=== PATIENT | male | born 1955 | race Caucasian/White ===

== ENCOUNTER 2022-09-17 11:53 | Emergency (ER) | payer MEDICARE, OTHER, SELFPAY ==
[2022-09-17] VITALS (34 sets, daily range): BP systolic 116–175; BP diastolic 65–86; PULSE 53–71; RESP 11–28; TEMP 36.7; O2SAT 94–99; BMI 27.6
--- NOTE | 2022-09-17 12:10 | DI.RAD.S_ITS ---
PROCEDURE: XR CHEST 1V INDICATIONS: chest pain TECHNIQUE: One view of the chest was acquired. COMPARISON: [facility], , CHEST 2 VIEW, 03/10/2012, 8:20. FINDINGS: Surgical changes and devices: None. Lungs and pleura: Lungs are clear. No pleural effusions or pneumothorax. Mediastinum: Mediastinal contours appear normal. Heart size is normal. Bones and chest wall: No suspicious bony lesions. Overlying soft tissues appear unremarkable. IMPRESSION: No acute pulmonary process. Dictated by: Kasey Evans M.D. on 09/17/2022 at 12:43 Approved by: Kasey Evans M.D. on 09/17/2022 at 12:44
[2022-09-17 12:56] LABS: Add Manual Diff / Slide Review NO; Basophils Absolute Auto 0 /uL (0-100); Basophils Percent Auto 0.5 % (0-2); Eosinophils Absolute Auto 100 /uL (0-450); Eosinophils Percent Auto 1.7 % (2-4); Lymphocytes Absolute Auto 1000 /uL (1100-4500); Lymphocytes Percent Auto 18.3 % (25-40); Mean Corpuscular HGB Conc 34.4 % (30-36); Mean Corpuscular Hemoglobin 31.8 PG (26-34); Mean Corpuscular Volume 92.3 fL (80-100); Monocytes Absolute Auto 500 /uL (0-900); Monocytes Percent Auto 9.5 % (3-14); Neutrophils Absolute Auto 3700 /uL (1500-7000); Platelet Count 185 X10^3/uL (150-400); Red Blood Cell Count 3.79 X10^6/uL (4.5-5.9); Red Cell Distribution Width 13.4 % (11.6-14.8); White Blood Cell Count 5.2 X10^3/uL (4.5-11.0)
[2022-09-17 13:05] LABS: PTT Partial Thromboplastin Tim 30 SECONDS (26-36)
[2022-09-17] MEDS: ASPIRIN 81 MG CHEW TAB 324 MG PO (13:10)
[2022-09-17 13:13] LABS: Alanine Aminotransferase 23 IU/L (<50); Albumin 3.6 g/dL (3.5-5.0); Alkaline Phosphatase 113 U/L (38-126); Aspartate Aminotransferase 23 IU/L (17-59); Bilirubin Total 0.9 mg/dL (0.2-1.3); Blood Urea Nitrogen 13 mg/dL (9-20); Calcium 8.3 mg/dL (8.4-10.2); Carbon Dioxide 25 mmol/L (22-32); Chloride 105 mmol/L (98-107); Creatine Kinase 26 U/L (55-170); Estimated Glomerular Filt Rate > 60 mL/min (>60); Globulin 2.5 g/dL (1.7-4.1); Glucose 111 mg/dL (80-110); HEMOLYSIS < 15 (0-50); Magnesium 1.9 mg/dL (1.6-2.3); Potassium 3.8 mmol/L (3.4-5.1); Sodium 138 mmol/L (137-145); Total Protein 6.1 g/dL (6.3-8.2)
[2022-09-17 13:14] LABS: Albumin Globulin Ratio 1.4 (1.0-2.8); Lipase 86 U/L (23-300)
[2022-09-17] MEDS: NITROGLYCERIN 0.4 MG SL TAB SL (13:16)
[2022-09-17 13:25] LABS: Troponin I < 0.012 ng/mL (0.01-0.034)
--- NOTE | 2022-09-17 13:31 | ED_ITS ---
HPI - Chest Pain <Shaji Gregg MD - Last Filed: 09/23/22 09:59> General Chief Complaint: Chest Pain Stated Complaint: states angina increase in freq/Intensity Time Seen by Provider: 09/17/22 12:39 Source: patient and family Mode of arrival: Ambulatory Limitations: no limitations History of Present Illness HPI narrative: Patient here for non reproducible sternal chest pressure discomfort that is been off and on since his right coronary artery stent August 17, 2022 at [facility]. Last couple days has felt very tired and short of breath. Patient did get relief with nitroglycerin at home. brought patient here. Patient had heart catheterization through the right upper extremity in August and had stent on the right coronary artery. There were a couple other vessels that were not amenable to opening the vessel. However he did come back for a secondary heart catheterization through the right groin and still a successful. He states he is due next week to try another method of heart catheterization with his senior trial attorney. Currently chest pain 11/26. Related Data Home Medications Medication Instructions Recorded Confirmed aspirin 81 mg tablet 81 mg PO DAILY 09/17/22 09/17/22 atorvastatin 40 mg tablet 40 mg PO DAILY 09/17/22 09/17/22 calcium citrate 250 mg PO QID 09/17/22 09/17/22 clopidogrel 75 mg tablet 75 mg PO DAILY 09/17/22 09/17/22 ferrous fumarate-ascorbic 1 tab PO DAILY 09/17/22 09/17/22 acid-ascorbate sod 65 mg iron-125 mg tablet meloxicam 15 mg tablet 15 mg PO DAILY PRN Pain (Scale 09/17/22 09/17/22 Score 4-6) metoprolol succinate 25 mg 25 mg PO DAILY 09/17/22 09/17/22 tablet,extended release 24 hr multivitamin-ferrous sulfate 18 mg 1 tab PO DAILY 09/17/22 09/17/22 tablet (One Daily Multivitamin with Iron) pantoprazole 40 mg tablet,delayed 40 mg PO DAILY 09/17/22 09/17/22 release vit C 250 mg-vit E 90 mg-zinc 40 1 cap PO DAILY 09/17/22 09/17/22 mg-copper 1 [id number] capsule (PreserVision AREDS-2) zolpidem 10 mg tablet 10 mg PO BEDTIME PRN Insomnia 09/17/22 09/17/22 Allergies Allergy/AdvReac Type Severity Reaction Status Date / Time No Known Drug Allergies Allergy Verified 09/17/22 12:21 Review of Systems <Shaji Gregg MD - Last Filed: 09/23/22 09:59> Review of Systems Narrative: GENERAL: negative chills, fatigue, malaise, fever, sweats. HEENT: negative sinus pain, ear pain, sore throat RESPIRATORY: Positive dyspnea, negative cough CARDIOVASCULAR: Positive chest pain, palpitations GASTROINTESTINAL: negative nausea, vomiting, abdominal pain : negative dysuria, frequency, hematuria MUSCULOSKELETAL: negative muscle or bony pain SKIN: negative rash, skin lesions NEUROLOGIC: negative weakness, numbness ROS Unobtainable: All systems reviewed & are unremarkable except as noted in HPI and below Patient History <Shaji Gregg MD - Last Filed: 09/23/22 09:59> Social History Smoking Status: Never smoker Smoking Status: Never smoker alcohol intake frequency: 0-2 drinks per day Substance Use Type: does not use Exam <Shaij Gregg MD - Last Filed: 09/23/22 09:59> Narrative Exam Narrative: GENERAL: in no distress, not toxic not dyspneic HEAD: Normocephalic. EYES: Pupils equal round No scleral icterus. ENT: Mucous membranes moist. NECK: Trachea midline. CARDIOVASCULAR: Regular rate and rhythm without murmurs RESPIRATORY: Clear to auscultation. Breath sounds equal bilaterally. No wheezes, rales, or rhonchi. GASTROINTESTINAL: Abdomen soft, non-tender EXTREMITIES: No gross deformities. BACK: No flank tenderness. NEURO: AOx4. SKIN: Warm and dry PSYCH: Not anxious, is cooperative Initial Vital Signs Initial Vital Signs: Vital Signs Temperature 98.1 F 09/17/22 12:05 Pulse Rate 58 L 09/17/22 12:05 Respiratory Rate 18 09/17/22 12:05 Blood Pressure 175/79 H 09/17/22 12:05 Pulse Oximetry 99 09/17/22 12:05 Oxygen Delivery Method 09/17/22 12:05 <Thania Almendarez DO - Last Filed: 09/20/22 07:40> Initial Vital Signs Initial Vital Signs: Vital Signs Temperature 98.1 F 09/17/22 12:05 Pulse Rate 58 L 09/17/22 12:05 Respiratory Rate 18 09/17/22 12:05 Blood Pressure 175/79 H 09/17/22 12:05 Pulse Oximetry 99 09/17/22 12:05 Oxygen Delivery Method 09/17/22 12:05 <Angie Sam DO - Last Filed: 09/20/22 11:27> Initial Vital Signs Initial Vital Signs: Vital Signs Temperature 98.1 F 09/17/22 12:05 Pulse Rate 58 L 09/17/22 12:05 Respiratory Rate 18 09/17/22 12:05 Blood Pressure 175/79 H 09/17/22 12:05 Pulse Oximetry 99 09/17/22 12:05 Oxygen Delivery Method 09/17/22 12:05 Course <Shaji Gregg MD - Last Filed: 09/23/22 09:59> Course Course Narrative: 6:[address] Almendarez repeat troponins are pending. Patient is on waiting list for [facility] for a bed, has been accepted by hospitalist and Cardiology group. Home meds may need to be started tonight. Decision to Admit Date: 09/17/22 Decision to Admit time: 13:33 Orders Ordered: Discontinued Medications Acetaminophen (Acetaminophen 325 Mg Tablet) 975 mg PO NOW ONE Stop: 09/17/22 20:42 Last Admin: 09/17/22 20:49 Dose: 975 mg Documented By: TONY Acetaminophen (Acetaminophen 325 Mg Tablet) 650 mg PO Q6H PRN PRN Reason: Fever/Mild Pain (1-3) Last Admin: 09/18/22 18:31 Dose: 650 mg Documented By: Admin: 09/18/22 06:09 Dose: 650 mg Documented By: TONY Aspirin (Aspirin 81 Mg Chew Tab) 324 mg PO NOW ONE Stop: 09/17/22 12:10 Last Admin: 09/17/22 13:10 Dose: 243 mg Documented By: ANISH Aspirin (Aspirin Ec 81 Mg Tablet) 81 mg PO DAILY [facility] Last Admin: 09/19/22 10:16 Dose: 81 mg Documented By: Admin: 09/18/22 09:39 Dose: 81 mg Documented By: ANISH Atorvastatin Calcium (Atorvastatin 20 Mg Tablet) 40 mg PO DAILY [facility] Last Admin: 09/19/22 10:15 Dose: 40 mg Documented By: Admin: 09/18/22 09:40 Dose: 40 mg Documented By: RLS Bisacodyl (Bisacodyl 10 Mg Supp) 10 mg OK NOW ONE Stop: 09/18/22 11:33 Last Admin: 09/18/22 12:04 Dose: 10 mg Documented By: AT Clopidogrel Bisulfate (Clopidogrel 75 Mg Tablet) 75 mg PO DAILY [facility] Last Admin: 09/19/22 10:15 Dose: 75 mg Documented By: Admin: 09/18/22 09:41 Dose: 75 mg Documented By: RLS Nitroglycerin (Nitroglycerin) 50 mg in 250 mls @ 1.5 mls/hr IV TITRATE [facility]; Protocol Last Titration: 09/18/22 18:33 Dose: 12.5 mcg/min, 3.75 mls/hr Documented By: Titration: 09/18/22 10:33 Dose: 10 mcg/min, 3 mls/hr Documented By: Titration: 09/18/22 09:32 Dose: 7.5 mcg/min, 2.25 mls/hr Documented By: Admin: 09/17/22 20:06 Dose: 5 mcg/min, 1.5 mls/hr Documented By: GC Metoprolol Succinate (Metoprolol Er 25 Mg Tablet) 25 mg PO DAILY [facility] Last Admin: 09/19/22 10:16 Dose: 25 mg Documented By: Admin: 09/18/22 09:40 Dose: 25 mg Documented By: RLS Morphine Sulfate (Morphine 2 Mg/Ml Inj) 2 mg IV NOW ONE Stop: 09/17/22 20:42 Last Admin: 09/18/22 09:32 Dose: Not Given Documented By: RLS Nitroglycerin (Nitroglycerin 0.4 Mg Sl Tab) 0.4 mg SL [id number] PRN PRN Reason: Chest Pain Last Admin: 09/17/22 13:16 Dose: 0.4 mg Documented By: RLS Nitroglycerin (Nitroglycerin Oint 1 Inch/Gm Oint...G.) 1 inch TOP NOW ONE Stop: 09/17/22 13:36 Last Admin: 09/17/22 13:39 Dose: 1 inch Documented By: RLS Pantoprazole Sodium (Pantoprazole Dr 20 Mg Tablet) 40 mg PO DAILY [facility] Last Admin: 09/19/22 10:15 Dose: 40 mg Documented By: Admin: 09/18/22 09:41 Dose: 40 mg Documented By: ANISH Zolpidem Tartrate (Zolpidem 5 Mg Tablet) 10 mg PO BEDTIME PRN PRN Reason: Sleep Last Admin: 09/20/22 02:33 Dose: 10 mg Documented By: Admin: 09/19/22 00:36 Dose: 10 mg Documented By: Admin: 09/17/22 23:57 Dose: 10 mg Documented By: TONY Reevaluation(s) Reevaluation #1: Updated patient results. Repeat EKG no acute changes. Time: 15:08 Consultations Consultation #1: Spoke with patient's senior trial attorney dr martínez, would like patient to be transfer to [facility]. Time: 14:03 Consultation #2: Spoke with [facility] Cardiology on-call, Dr. Connell, will accept pt when bed available, [facility] Time: 15:08 Consultation #3: Spoke with [facility] Dr. Steele hospitalist, will accept patient when bed available. Time: 15:22 Vital Signs Vital signs: Vital Signs - 8 hr 09/20/22 06:05 09/20/22 06:30 09/20/22 06:30 Pulse Rate 59 L 59 L Respiratory Rate 25 H 29 H Blood Pressure 108/57 L Pulse Oximetry 95 95 <Thania Almendarez, - Last Filed: 09/20/22 07:40> Orders Ordered: Discontinued Medications Acetaminophen (Acetaminophen 325 Mg Tablet) 975 mg PO NOW ONE Stop: 09/17/22 20:42 Last Admin: 09/17/22 20:49 Dose: 975 mg Documented By: TONY Acetaminophen (Acetaminophen 325 Mg Tablet) 650 mg PO Q6H PRN PRN Reason: Fever/Mild Pain (1-3) Last Admin: 09/18/22 18:31 Dose: 650 mg Documented By: Admin: 09/18/22 06:09 Dose: 650 mg Documented By: TONY Aspirin (Aspirin 81 Mg Chew Tab) 324 mg PO NOW ONE Stop: 09/17/22 12:10 Last Admin: 09/17/22 13:10 Dose: 243 mg Documented By: ANISH Aspirin (Aspirin Ec 81 Mg Tablet) 81 mg PO DAILY [facility] Last Admin: 09/19/22 10:16 Dose: 81 mg Documented By: Admin: 09/18/22 09:39 Dose: 81 mg Documented By: RLS Atorvastatin Calcium (Atorvastatin 20 Mg Tablet) 40 mg PO DAILY [facility] Last Admin: 09/19/22 10:15 Dose: 40 mg Documented By: Admin: 09/18/22 09:40 Dose: 40 mg Documented By: RLS Bisacodyl (Bisacodyl 10 Mg Supp) 10 mg OK NOW ONE Stop: 09/18/22 11:33 Last Admin: 09/18/22 12:04 Dose: 10 mg Documented By: AT Clopidogrel Bisulfate (Clopidogrel 75 Mg Tablet) 75 mg PO DAILY [facility] Last Admin: 09/19/22 10:15 Dose: 75 mg Documented By: Admin: 09/18/22 09:41 Dose: 75 mg Documented By: RLS Nitroglycerin (Nitroglycerin) 50 mg in 250 mls @ 1.5 mls/hr IV TITRATE [facility]; Protocol Last Titration: 09/18/22 18:33 Dose: 12.5 mcg/min, 3.75 mls/hr Documented By: Titration: 09/18/22 10:33 Dose: 10 mcg/min, 3 mls/hr Documented By: Titration: 09/18/22 09:32 Dose: 7.5 mcg/min, 2.25 mls/hr Documented By: Admin: 09/17/22 20:06 Dose: 5 mcg/min, 1.5 mls/hr Documented By: GC Metoprolol Succinate (Metoprolol Er 25 Mg Tablet) 25 mg PO DAILY [facility] Last Admin: 09/19/22 10:16 Dose: 25 mg Documented By: Admin: 09/18/22 09:40 Dose: 25 mg Documented By: RLS Morphine Sulfate (Morphine 2 Mg/Ml Inj) 2 mg IV NOW ONE Stop: 09/17/22 20:42 Last Admin: 09/18/22 09:32 Dose: Not Given Documented By: RLS Nitroglycerin (Nitroglycerin 0.4 Mg Sl Tab) 0.4 mg SL [id number] PRN PRN Reason: Chest Pain Last Admin: 09/17/22 13:16 Dose: 0.4 mg Documented By: RLS Nitroglycerin (Nitroglycerin Oint 1 Inch/Gm Oint...G.) 1 inch TOP NOW ONE Stop: 09/17/22 13:36 Last Admin: 09/17/22 13:39 Dose: 1 inch Documented By: ANISH Pantoprazole Sodium (Pantoprazole Dr 20 Mg Tablet) 40 mg PO DAILY [facility] Last Admin: 09/19/22 10:15 Dose: 40 mg Documented By: Admin: 09/18/22 09:41 Dose: 40 mg Documented By: ANISH Zolpidem Tartrate (Zolpidem 5 Mg Tablet) 10 mg PO BEDTIME PRN PRN Reason: Sleep Last Admin: 09/20/22 02:33 Dose: 10 mg Documented By: Admin: 09/19/22 00:36 Dose: 10 mg Documented By: Admin: 09/17/22 23:57 Dose: 10 mg Documented By: TONY Vital Signs Vital signs: Vital Signs - 8 hr 09/20/22 06:05 09/20/22 06:30 09/20/22 06:30 Pulse Rate 59 L 59 L Respiratory Rate 25 H 29 H Blood Pressure 108/57 L Pulse Oximetry 95 95 <Angie Sam, - Last Filed: 09/20/22 11:27> Orders Ordered: Discontinued Medications Acetaminophen (Acetaminophen 325 Mg Tablet) 975 mg PO NOW ONE Stop: 09/17/22 20:42 Last Admin: 09/17/22 20:49 Dose: 975 mg Documented By: TONY Acetaminophen (Acetaminophen 325 Mg Tablet) 650 mg PO Q6H PRN PRN Reason: Fever/Mild Pain (1-3) Last Admin: 09/18/22 18:31 Dose: 650 mg Documented By: Admin: 09/18/22 06:09 Dose: 650 mg Documented By: TONY Aspirin (Aspirin 81 Mg Chew Tab) 324 mg PO NOW ONE Stop: 09/17/22 12:10 Last Admin: 09/17/22 13:10 Dose: 243 mg Documented By: ANISH Aspirin (Aspirin Ec 81 Mg Tablet) 81 mg PO DAILY [facility] Last Admin: 09/19/22 10:16 Dose: 81 mg Documented By: Admin: 09/18/22 09:39 Dose: 81 mg Documented By: ANISH Atorvastatin Calcium (Atorvastatin 20 Mg Tablet) 40 mg PO DAILY [facility] Last Admin: 09/19/22 10:15 Dose: 40 mg Documented By: Admin: 09/18/22 09:40 Dose: 40 mg Documented By: ANISH Bisacodyl (Bisacodyl 10 Mg Supp) 10 mg OK NOW ONE Stop: 09/18/22 11:33 Last Admin: 09/18/22 12:04 Dose: 10 mg Documented By: AT Clopidogrel Bisulfate (Clopidogrel 75 Mg Tablet) 75 mg PO DAILY [facility] Last Admin: 09/19/22 10:15 Dose: 75 mg Documented By: Admin: 09/18/22 09:41 Dose: 75 mg Documented By: RLS Nitroglycerin (Nitroglycerin) 50 mg in 250 mls @ 1.5 mls/hr IV TITRATE [facility]; Protocol Last Titration: 09/18/22 18:33 Dose: 12.5 mcg/min, 3.75 mls/hr Documented By: Titration: 09/18/22 10:33 Dose: 10 mcg/min, 3 mls/hr Documented By: Titration: 09/18/22 09:32 Dose: 7.5 mcg/min, 2.25 mls/hr Documented By: Admin: 09/17/22 20:06 Dose: 5 mcg/min, 1.5 mls/hr Documented By: GC Metoprolol Succinate (Metoprolol Er 25 Mg Tablet) 25 mg PO DAILY [facility] Last Admin: 09/19/22 10:16 Dose: 25 mg Documented By: Admin: 09/18/22 09:40 Dose: 25 mg Documented By: ANISH Morphine Sulfate (Morphine 2 Mg/Ml Inj) 2 mg IV NOW ONE Stop: 09/17/22 20:42 Last Admin: 09/18/22 09:32 Dose: Not Given Documented By: RLS Nitroglycerin (Nitroglycerin 0.4 Mg Sl Tab) 0.4 mg SL [id number] PRN PRN Reason: Chest Pain Last Admin: 09/17/22 13:16 Dose: 0.4 mg Documented By: RLS Nitroglycerin (Nitroglycerin Oint 1 Inch/Gm Oint...G.) 1 inch TOP NOW ONE Stop: 09/17/22 13:36 Last Admin: 09/17/22 13:39 Dose: 1 inch Documented By: RLS Pantoprazole Sodium (Pantoprazole Dr 20 Mg Tablet) 40 mg PO DAILY [facility] Last Admin: 09/19/22 10:15 Dose: 40 mg Documented By: Admin: 09/18/22 09:41 Dose: 40 mg Documented By: RLS Zolpidem Tartrate (Zolpidem 5 Mg Tablet) 10 mg PO BEDTIME PRN PRN Reason: Sleep Last Admin: 09/20/22 02:33 Dose: 10 mg Documented By: Admin: 09/19/22 00:36 Dose: 10 mg Documented By: Admin: 09/17/22 23:57 Dose: 10 mg Documented By: TONY Consultations Additional Consultation(s): Spoke with Dr. Toth at [facility], patient been boarding 50+ waiting for bed at [facility]. Agrees with plan for transfer to [facility]. Vital Signs Vital signs: Vital Signs - 8 hr 09/20/22 06:05 09/20/22 06:30 09/20/22 06:30 Pulse Rate 59 L 59 L Respiratory Rate 25 H 29 H Blood Pressure 108/57 L Pulse Oximetry 95 95 MDM - Chest Pain <Shaji Gregg MD - Last Filed: 09/23/22 09:59> Differential Diagnosis Differential diagnosis: Likely stable angina, unstable angina pectoris, atypical chest pain, st elevation myocardial infarction, chest pain and other (Non-STEMI) Lab Data Result diagrams: 09/19/22 19:50 09/19/22 19:50 Labs: Lab Results 09/17/22 09/17/22 09/17/22 Range/Units 12:43 12:43 12:43 WBC 5.2 (4.5-11.0) X10^3/uL RBC 3.79 L (4.5-5.9) X10^6/uL Hgb 12.0 L (13.5-17.5) g/dL Hct 35.0 L (41-53) % MCV 92.3 (80-100) fL MCH 31.8 (26-34) PG MCHC 34.4 (30-36) % RDW 13.4 (11.6-14.8) % Plt Count 185 (150-400) X10^3/uL Neut % (Auto) 70.0 (50-75) % Lymph % (Auto) 18.3 L (25-40) % [place] % (Auto) 9.5 (3-14) % Eos % (Auto) 1.7 L (2-4) % Baso % (Auto) 0.5 (0-2) % Neut # (Auto) 3700 (5420-9212) /uL Lymph # (Auto) 1000 L (3089-2367) /uL [place] # (Auto) 500 (0-900) /uL Eos # (Auto) 100 (0-450) /uL Baso # (Auto) 0 (0-100) /uL PT 12.0 (10.1-12.7) SECONDS INR 1.0 (0.9-1.3) APTT 30 (26-36) SECONDS Sodium 138 (137-145) mmol/L Potassium 3.8 (3.4-5.1) mmol/L Chloride 105 (98-107) mmol/L Carbon Dioxide 25 (22-32) mmol/L BUN 13 (9-20) mg/dL Creatinine 0.62 L (0.66-1.25) mg/dL Estimated GFR > 60 (>60) mL/min BUN/Creatinine Ratio 21.0 (6-22) Glucose 111 H (80-110) mg/dL Calcium 8.3 L (8.4-10.2) mg/dL Magnesium 1.9 (1.6-2.3) mg/dL Total Bilirubin 0.9 (0.2-1.3) mg/dL AST 23 (17-59) IU/L ALT 23 (<50) IU/L Alkaline Phosphatase 113 (38-126) U/L Total Creatine Kinase 26 L (55-170) U/L CK-MB (CK-2) TNP CK-MB (CK-2) Rel Index TNP Troponin I < 0.012 (0.01-0.034) ng/mL Total Protein 6.1 L (6.3-8.2) g/dL Albumin 3.6 (3.5-5.0) g/dL Globulin 2.5 (1.7-4.1) g/dL Albumin/Globulin Ratio 1.4 (1.0-2.8) Lipase 86 (23-300) U/L SARS-CoV-2 (PCR) (Negative) 09/17/22 09/17/22 09/17/22 Range/Units 13:42 15:09 22:03 WBC (4.5-11.0) X10^3/uL RBC (4.5-5.9) X10^6/uL Hgb (13.5-17.5) g/dL Hct (41-53) % MCV (80-100) fL MCH (26-34) PG MCHC (30-36) % RDW (11.6-14.8) % Plt Count (150-400) X10^3/uL Neut % (Auto) (50-75) % Lymph % (Auto) (25-40) % [place] % (Auto) (3-14) % Eos % (Auto) (2-4) % Baso % (Auto) (0-2) % Neut # (Auto) (6047-2897) /uL Lymph # (Auto) (2531-3477) /uL [place] # (Auto) (0-900) /uL Eos # (Auto) (0-450) /uL Baso # (Auto) (0-100) /uL PT (10.1-12.7) SECONDS INR (0.9-1.3) APTT (26-36) SECONDS Sodium (137-145) mmol/L Potassium (3.4-5.1) mmol/L Chloride (98-107) mmol/L Carbon Dioxide (22-32) mmol/L BUN (9-20) mg/dL Creatinine (0.66-1.25) mg/dL Estimated GFR (>60) mL/min BUN/Creatinine Ratio (6-22) Glucose (80-110) mg/dL Calcium (8.4-10.2) mg/dL Magnesium (1.6-2.3) mg/dL Total Bilirubin (0.2-1.3) mg/dL AST (17-59) IU/L ALT (<50) IU/L Alkaline Phosphatase (38-126) U/L Total Creatine Kinase (55-170) U/L CK-MB (CK-2) CK-MB (CK-2) Rel Index Troponin I < 0.012 < 0.012 (0.01-0.034) ng/mL Total Protein (6.3-8.2) g/dL Albumin (3.5-5.0) g/dL Globulin (1.7-4.1) g/dL Albumin/Globulin Ratio (1.0-2.8) Lipase (23-300) U/L SARS-CoV-2 (PCR) Negative (Negative) 09/18/22 09/18/22 09/18/22 Range/Units 05:50 05:50 12:16 WBC 4.4 L (4.5-11.0) X10^3/uL RBC 3.54 L (4.5-5.9) X10^6/uL Hgb 11.2 L (13.5-17.5) g/dL Hct 32.2 L (41-53) % MCV 91.0 (80-100) fL MCH 31.6 (26-34) PG MCHC 34.7 (30-36) % RDW 13.4 (11.6-14.8) % Plt Count 175 (150-400) X10^3/uL Neut % (Auto) 54.5 (50-75) % Lymph % (Auto) 29.3 (25-40) % [place] % (Auto) 12.4 (3-14) % Eos % (Auto) 2.8 (2-4) % Baso % (Auto) 1.0 (0-2) % Neut # (Auto) 2400 (9231-3484) /uL Lymph # (Auto) 1300 (3910-6956) /uL [place] # (Auto) 500 (0-900) /uL Eos # (Auto) 100 (0-450) /uL Baso # (Auto) 0 (0-100) /uL PT (10.1-12.7) SECONDS INR (0.9-1.3) APTT (26-36) SECONDS Sodium 138 (137-145) mmol/L Potassium 3.7 (3.4-5.1) mmol/L Chloride 106 (98-107) mmol/L Carbon Dioxide 25 (22-32) mmol/L BUN 15 (9-20) mg/dL Creatinine 0.61 L (0.66-1.25) mg/dL Estimated GFR > 60 (>60) mL/min BUN/Creatinine Ratio 24.6 H (6-22) Glucose 111 H (80-110) mg/dL Calcium 8.0 L (8.4-10.2) mg/dL Magnesium (1.6-2.3) mg/dL Total Bilirubin 1.1 (0.2-1.3) mg/dL AST 22 (17-59) IU/L ALT 21 (<50) IU/L Alkaline Phosphatase 99 (38-126) U/L Total Creatine Kinase 22 L (55-170) U/L CK-MB (CK-2) TNP CK-MB (CK-2) Rel Index TNP Troponin I < 0.012 < 0.012 (0.01-0.034) ng/mL Total Protein 5.5 L (6.3-8.2) g/dL Albumin 3.2 L (3.5-5.0) g/dL Globulin 2.3 (1.7-4.1) g/dL Albumin/Globulin Ratio 1.4 (1.0-2.8) Lipase (23-300) U/L SARS-CoV-2 (PCR) (Negative) 09/18/22 09/19/22 09/19/22 Range/Units 19:55 19:50 19:50 WBC 4.7 (4.5-11.0) X10^3/uL RBC 3.86 L (4.5-5.9) X10^6/uL Hgb 12.2 L (13.5-17.5) g/dL Hct 35.3 L (41-53) % MCV 91.4 (80-100) fL MCH 31.5 (26-34) PG MCHC 34.5 (30-36) % RDW 13.4 (11.6-14.8) % Plt Count 219 (150-400) X10^3/uL Neut % (Auto) 52.2 (50-75) % Lymph % (Auto) 30.3 (25-40) % [place] % (Auto) 14.5 H (3-14) % Eos % (Auto) 2.0 (2-4) % Baso % (Auto) 1.0 (0-2) % Neut # (Auto) 2400 (4614-6688) /uL Lymph # (Auto) 1400 (5069-2156) /uL [place] # (Auto) 700 (0-900) /uL Eos # (Auto) 100 (0-450) /uL Baso # (Auto) 0 (0-100) /uL PT (10.1-12.7) SECONDS INR (0.9-1.3) APTT (26-36) SECONDS Sodium 138 (137-145) mmol/L Potassium 4.0 (3.4-5.1) mmol/L Chloride 104 (98-107) mmol/L Carbon Dioxide 23 (22-32) mmol/L BUN 13 (9-20) mg/dL Creatinine 0.69 (0.66-1.25) mg/dL Estimated GFR > 60 (>60) mL/min BUN/Creatinine Ratio 18.8 (6-22) Glucose 150 H (80-110) mg/dL Calcium 8.4 (8.4-10.2) mg/dL Magnesium (1.6-2.3) mg/dL Total Bilirubin (0.2-1.3) mg/dL AST (17-59) IU/L ALT (<50) IU/L Alkaline Phosphatase (38-126) U/L Total Creatine Kinase (55-170) U/L CK-MB (CK-2) CK-MB (CK-2) Rel Index Troponin I < 0.012 < 0.012 (0.01-0.034) ng/mL Total Protein (6.3-8.2) g/dL Albumin (3.5-5.0) g/dL Globulin (1.7-4.1) g/dL Albumin/Globulin Ratio (1.0-2.8) Lipase (23-300) U/L SARS-CoV-2 (PCR) (Negative) Imaging Data Chest x-ray: Radiologist's Impression: [address] [address] XRay Report Signed Patient: Clarence Flowers MR#: [id number] : 1955 Acct:[id number] Age/Sex: 67 / M Date of Service: 09/17/22 Loc: ED Accession Number: [id number] ?? Procedure: XR chest 1V Ordering Provider: Shaji Gregg MD PROCEDURE:? XR CHEST 1V ? INDICATIONS:? chest pain ? TECHNIQUE:? One view of the chest was acquired.? ? COMPARISON:? [facility], , CHEST 2 VIEW, 03/10/2012, 8:20. ? FINDINGS:? ? Surgical changes and devices:? None.? ? Lungs and pleura:? Lungs are clear.? No pleural effusions or pneumothorax.? ? Mediastinum:? Mediastinal contours appear normal.? Heart size is normal.? ? Bones and chest wall:? No suspicious bony lesions.? Overlying soft tissues appear unremarkable.? ? IMPRESSION:? No acute pulmonary process. ? ? Dictated by: Kasey Evans M.D. on 09/17/2022 at 12:43 ? ? Approved by: Kasey Evans M.D. on 09/17/2022 at 12:44 ? ECG Data Interpretation: EKG at 12:19 p.m.. Sinus bradycardia rate 59 otherwise normal EKG no ST elevation or depression EKG at 1333. Sinus rhythm rate [address] elevation or depression EKG at 3:04 p.m.. Sinus bradycardia rate 58 otherwise normal EKG no ST elevation or depression MDM Narrative Medical decision making narrative: Appropriate for transfer. Patient will need cardiac services. <Thania Almendarez, DO - Last Filed: 09/20/22 07:40> Lab Data Labs: Lab Results 09/17/22 09/17/22 09/17/22 Range/Units 12:43 12:43 12:43 WBC 5.2 (4.5-11.0) X10^3/uL RBC 3.79 L (4.5-5.9) X10^6/uL Hgb 12.0 L (13.5-17.5) g/dL Hct 35.0 L (41-53) % MCV 92.3 (80-100) fL MCH 31.8 (26-34) PG MCHC 34.4 (30-36) % RDW 13.4 (11.6-14.8) % Plt Count 185 (150-400) X10^3/uL Neut % (Auto) 70.0 (50-75) % Lymph % (Auto) 18.3 L (25-40) % [place] % (Auto) 9.5 (3-14) % Eos % (Auto) 1.7 L (2-4) % Baso % (Auto) 0.5 (0-2) % Neut # (Auto) 3700 (7426-2863) /uL Lymph # (Auto) 1000 L (2702-8848) /uL [place] # (Auto) 500 (0-900) /uL Eos # (Auto) 100 (0-450) /uL Baso # (Auto) 0 (0-100) /uL PT 12.0 (10.1-12.7) SECONDS INR 1.0 (0.9-1.3) APTT 30 (26-36) SECONDS Sodium 138 (137-145) mmol/L Potassium 3.8 (3.4-5.1) mmol/L Chloride 105 (98-107) mmol/L Carbon Dioxide 25 (22-32) mmol/L BUN 13 (9-20) mg/dL Creatinine 0.62 L (0.66-1.25) mg/dL Estimated GFR > 60 (>60) mL/min BUN/Creatinine Ratio 21.0 (6-22) Glucose 111 H (80-110) mg/dL Calcium 8.3 L (8.4-10.2) mg/dL Magnesium 1.9 (1.6-2.3) mg/dL Total Bilirubin 0.9 (0.2-1.3) mg/dL AST 23 (17-59) IU/L ALT 23 (<50) IU/L Alkaline Phosphatase 113 (38-126) U/L Total Creatine Kinase 26 L (55-170) U/L CK-MB (CK-2) TNP CK-MB (CK-2) Rel Index TNP Troponin I < 0.012 (0.01-0.034) ng/mL Total Protein 6.1 L (6.3-8.2) g/dL Albumin 3.6 (3.5-5.0) g/dL Globulin 2.5 (1.7-4.1) g/dL Albumin/Globulin Ratio 1.4 (1.0-2.8) Lipase 86 (23-300) U/L SARS-CoV-2 (PCR) (Negative) 09/17/22 09/17/22 09/17/22 Range/Units 13:42 15:09 22:03 WBC (4.5-11.0) X10^3/uL RBC (4.5-5.9) X10^6/uL Hgb (13.5-17.5) g/dL Hct (41-53) % MCV (80-100) fL MCH (26-34) PG MCHC (30-36) % RDW (11.6-14.8) % Plt Count (150-400) X10^3/uL Neut % (Auto) (50-75) % Lymph % (Auto) (25-40) % [place] % (Auto) (3-14) % Eos % (Auto) (2-4) % Baso % (Auto) (0-2) % Neut # (Auto) (2809-4207) /uL Lymph # (Auto) (3116-5179) /uL [place] # (Auto) (0-900) /uL Eos # (Auto) (0-450) /uL Baso # (Auto) (0-100) /uL PT (10.1-12.7) SECONDS INR (0.9-1.3) APTT (26-36) SECONDS Sodium (137-145) mmol/L Potassium (3.4-5.1) mmol/L Chloride (98-107) mmol/L Carbon Dioxide (22-32) mmol/L BUN (9-20) mg/dL Creatinine (0.66-1.25) mg/dL Estimated GFR (>60) mL/min BUN/Creatinine Ratio (6-22) Glucose (80-110) mg/dL Calcium (8.4-10.2) mg/dL Magnesium (1.6-2.3) mg/dL Total Bilirubin (0.2-1.3) mg/dL AST (17-59) IU/L ALT (<50) IU/L Alkaline Phosphatase (38-126) U/L Total Creatine Kinase (55-170) U/L CK-MB (CK-2) CK-MB (CK-2) Rel Index Troponin I < 0.012 < 0.012 (0.01-0.034) ng/mL Total Protein (6.3-8.2) g/dL Albumin (3.5-5.0) g/dL Globulin (1.7-4.1) g/dL Albumin/Globulin Ratio (1.0-2.8) Lipase (23-300) U/L SARS-CoV-2 (PCR) Negative (Negative) 09/18/22 09/18/22 09/18/22 Range/Units 05:50 05:50 12:16 WBC 4.4 L (4.5-11.0) X10^3/uL RBC 3.54 L (4.5-5.9) X10^6/uL Hgb 11.2 L (13.5-17.5) g/dL Hct 32.2 L (41-53) % MCV 91.0 (80-100) fL MCH 31.6 (26-34) PG MCHC 34.7 (30-36) % RDW 13.4 (11.6-14.8) % Plt Count 175 (150-400) X10^3/uL Neut % (Auto) 54.5 (50-75) % Lymph % (Auto) 29.3 (25-40) % [place] % (Auto) 12.4 (3-14) % Eos % (Auto) 2.8 (2-4) % Baso % (Auto) 1.0 (0-2) % Neut # (Auto) 2400 (3794-4717) /uL Lymph # (Auto) 1300 (9583-7382) /uL [place] # (Auto) 500 (0-900) /uL Eos # (Auto) 100 (0-450) /uL Baso # (Auto) 0 (0-100) /uL PT (10.1-12.7) SECONDS INR (0.9-1.3) APTT (26-36) SECONDS Sodium 138 (137-145) mmol/L Potassium 3.7 (3.4-5.1) mmol/L Chloride 106 (98-107) mmol/L Carbon Dioxide 25 (22-32) mmol/L BUN 15 (9-20) mg/dL Creatinine 0.61 L (0.66-1.25) mg/dL Estimated GFR > 60 (>60) mL/min BUN/Creatinine Ratio 24.6 H (6-22) Glucose 111 H (80-110) mg/dL Calcium 8.0 L (8.4-10.2) mg/dL Magnesium (1.6-2.3) mg/dL Total Bilirubin 1.1 (0.2-1.3) mg/dL AST 22 (17-59) IU/L ALT 21 (<50) IU/L Alkaline Phosphatase 99 (38-126) U/L Total Creatine Kinase 22 L (55-170) U/L CK-MB (CK-2) TNP CK-MB (CK-2) Rel Index TNP Troponin I < 0.012 < 0.012 (0.01-0.034) ng/mL Total Protein 5.5 L (6.3-8.2) g/dL Albumin 3.2 L (3.5-5.0) g/dL Globulin 2.3 (1.7-4.1) g/dL Albumin/Globulin Ratio 1.4 (1.0-2.8) Lipase (23-300) U/L SARS-CoV-2 (PCR) (Negative) 09/18/22 09/19/22 09/19/22 Range/Units 19:55 19:50 19:50 WBC 4.7 (4.5-11.0) X10^3/uL RBC 3.86 L (4.5-5.9) X10^6/uL Hgb 12.2 L (13.5-17.5) g/dL Hct 35.3 L (41-53) % MCV 91.4 (80-100) fL MCH 31.5 (26-34) PG MCHC 34.5 (30-36) % RDW 13.4 (11.6-14.8) % Plt Count 219 (150-400) X10^3/uL Neut % (Auto) 52.2 (50-75) % Lymph % (Auto) 30.3 (25-40) % [place] % (Auto) 14.5 H (3-14) % Eos % (Auto) 2.0 (2-4) % Baso % (Auto) 1.0 (0-2) % Neut # (Auto) 2400 (6817-8060) /uL Lymph # (Auto) 1400 (8807-0108) /uL [place] # (Auto) 700 (0-900) /uL Eos # (Auto) 100 (0-450) /uL Baso # (Auto) 0 (0-100) /uL PT (10.1-12.7) SECONDS INR (0.9-1.3) APTT (26-36) SECONDS Sodium 138 (137-145) mmol/L Potassium 4.0 (3.4-5.1) mmol/L Chloride 104 (98-107) mmol/L Carbon Dioxide 23 (22-32) mmol/L BUN 13 (9-20) mg/dL Creatinine 0.69 (0.66-1.25) mg/dL Estimated GFR > 60 (>60) mL/min BUN/Creatinine Ratio 18.8 (6-22) Glucose 150 H (80-110) mg/dL Calcium 8.4 (8.4-10.2) mg/dL Magnesium (1.6-2.3) mg/dL Total Bilirubin (0.2-1.3) mg/dL AST (17-59) IU/L ALT (<50) IU/L Alkaline Phosphatase (38-126) U/L Total Creatine Kinase (55-170) U/L CK-MB (CK-2) CK-MB (CK-2) Rel Index Troponin I < 0.012 < 0.012 (0.01-0.034) ng/mL Total Protein (6.3-8.2) g/dL Albumin (3.5-5.0) g/dL Globulin (1.7-4.1) g/dL Albumin/Globulin Ratio (1.0-2.8) Lipase (23-300) U/L SARS-CoV-2 (PCR) (Negative) MDM Narrative Medical decision making narrative: Appropriate for transfer. Patient will need cardiac services. Patient signed out to me by Dr. Gregg. A seen evaluated patient myself. Very pleasant. Has known coronary artery disease. Has had 2 attempted cardiac catheterizations at [facility]. Had a perforated coronary artery on the 2nd 1. Is supposed to go next week for a 3rd attempt. He apparently has quite significant calcium blockage. To last 10 days he has had some chest discomfort with exertion. It was more frequent and intense today. He started having some mild chest discomfort while I was in the room. Will start her on nitro drip. Awaiting transfer to [facility] he apparently has been accepted. Patient signed out to Dr. Sam. Flaco 09/18/22: This is a 67-year-old male with complaint of chest pain, patient signed out to myself he has been voiding here since yesterday he has known coronary artery disease with 2 attempted cardiac catheterizations at [facility] had a perforated coronary artery during the 2nd and was supposed to return this week for a 3rd attempt he has reportedly significant calcium blockages that make this quite difficult. He has been having chest discomfort with exertion, he had nitro paste on board which seemed to be helpful here in the department but was wiped off returned so nitro drip was started patient has had negative troponins for 18 hours with no acute or dynamic EKG changes. Patient states his chest discomfort had started to return with nitro paste came off but now that he is on a drip he states it has improved. He has been accepted at [facility] by Dr. Berg and Cedric for transfer. There significant bed shortages regionally and patient's boarding while awaiting assignment. Flaco 09/19/22: Patient signed out to myself by Dr. Almendarez. Patient here while awaiting a bed at [facility] for known coronary artery disease and requiring catheterization he is currently still on a nitro drip. Patient has not been having any persistent chest pain. Still awaiting bed at [facility], he has been present 50+ hours awaiting cardiac cath for known disease. Daily labs ordered. Patient signed out to Dr. Almendarez while awaiting potential transfer. We did call [facility] for potential transfer to other facility. Spoke with Dr. Toth, cardiology at [facility] who defers transfer feels more appropriate to be at facility that is well versed in patients complicated cath history. [place]on: Patient accepted at [facility] transport will come in the morning. Patient is ambulatory in the ED he has been on nitro he says finally feels like his pain has gone away. He has no complaints <Angie Sam, DO - Last Filed: 09/20/22 11:27> Lab Data Labs: Lab Results 09/17/22 09/17/22 09/17/22 Range/Units 12:43 12:43 12:43 WBC 5.2 (4.5-11.0) X10^3/uL RBC 3.79 L (4.5-5.9) X10^6/uL Hgb 12.0 L (13.5-17.5) g/dL Hct 35.0 L (41-53) % MCV 92.3 (80-100) fL MCH 31.8 (26-34) PG MCHC 34.4 (30-36) % RDW 13.4 (11.6-14.8) % Plt Count 185 (150-400) X10^3/uL Neut % (Auto) 70.0 (50-75) % Lymph % (Auto) 18.3 L (25-40) % [place] % (Auto) 9.5 (3-14) % Eos % (Auto) 1.7 L (2-4) % Baso % (Auto) 0.5 (0-2) % Neut # (Auto) 3700 (2681-8881) /uL Lymph # (Auto) 1000 L (9023-1346) /uL [place] # (Auto) 500 (0-900) /uL Eos # (Auto) 100 (0-450) /uL Baso # (Auto) 0 (0-100) /uL PT 12.0 (10.1-12.7) SECONDS INR 1.0 (0.9-1.3) APTT 30 (26-36) SECONDS Sodium 138 (137-145) mmol/L Potassium 3.8 (3.4-5.1) mmol/L Chloride 105 (98-107) mmol/L Carbon Dioxide 25 (22-32) mmol/L BUN 13 (9-20) mg/dL Creatinine 0.62 L (0.66-1.25) mg/dL Estimated GFR > 60 (>60) mL/min BUN/Creatinine Ratio 21.0 (6-22) Glucose 111 H (80-110) mg/dL Calcium 8.3 L (8.4-10.2) mg/dL Magnesium 1.9 (1.6-2.3) mg/dL Total Bilirubin 0.9 (0.2-1.3) mg/dL AST 23 (17-59) IU/L ALT 23 (<50) IU/L Alkaline Phosphatase 113 (38-126) U/L Total Creatine Kinase 26 L (55-170) U/L CK-MB (CK-2) TNP CK-MB (CK-2) Rel Index TNP Troponin I < 0.012 (0.01-0.034) ng/mL Total Protein 6.1 L (6.3-8.2) g/dL Albumin 3.6 (3.5-5.0) g/dL Globulin 2.5 (1.7-4.1) g/dL Albumin/Globulin Ratio 1.4 (1.0-2.8) Lipase 86 (23-300) U/L SARS-CoV-2 (PCR) (Negative) 09/17/22 09/17/22 09/17/22 Range/Units 13:42 15:09 22:03 WBC (4.5-11.0) X10^3/uL RBC (4.5-5.9) X10^6/uL Hgb (13.5-17.5) g/dL Hct (41-53) % MCV (80-100) fL MCH (26-34) PG MCHC (30-36) % RDW (11.6-14.8) % Plt Count (150-400) X10^3/uL Neut % (Auto) (50-75) % Lymph % (Auto) (25-40) % [place] % (Auto) (3-14) % Eos % (Auto) (2-4) % Baso % (Auto) (0-2) % Neut # (Auto) (5882-6644) /uL Lymph # (Auto) (3245-4035) /uL [place] # (Auto) (0-900) /uL Eos # (Auto) (0-450) /uL Baso # (Auto) (0-100) /uL PT (10.1-12.7) SECONDS INR (0.9-1.3) APTT (26-36) SECONDS Sodium (137-145) mmol/L Potassium (3.4-5.1) mmol/L Chloride (98-107) mmol/L Carbon Dioxide (22-32) mmol/L BUN (9-20) mg/dL Creatinine (0.66-1.25) mg/dL Estimated GFR (>60) mL/min BUN/Creatinine Ratio (6-22) Glucose (80-110) mg/dL Calcium (8.4-10.2) mg/dL Magnesium (1.6-2.3) mg/dL Total Bilirubin (0.2-1.3) mg/dL AST (17-59) IU/L ALT (<50) IU/L Alkaline Phosphatase (38-126) U/L Total Creatine Kinase (55-170) U/L CK-MB (CK-2) CK-MB (CK-2) Rel Index Troponin I < 0.012 < 0.012 (0.01-0.034) ng/mL Total Protein (6.3-8.2) g/dL Albumin (3.5-5.0) g/dL Globulin (1.7-4.1) g/dL Albumin/Globulin Ratio (1.0-2.8) Lipase (23-300) U/L SARS-CoV-2 (PCR) Negative (Negative) 09/18/22 09/18/22 09/18/22 Range/Units 05:50 05:50 12:16 WBC 4.4 L (4.5-11.0) X10^3/uL RBC 3.54 L (4.5-5.9) X10^6/uL Hgb 11.2 L (13.5-17.5) g/dL Hct 32.2 L (41-53) % MCV 91.0 (80-100) fL MCH 31.6 (26-34) PG MCHC 34.7 (30-36) % RDW 13.4 (11.6-14.8) % Plt Count 175 (150-400) X10^3/uL Neut % (Auto) 54.5 (50-75) % Lymph % (Auto) 29.3 (25-40) % [place] % (Auto) 12.4 (3-14) % Eos % (Auto) 2.8 (2-4) % Baso % (Auto) 1.0 (0-2) % Neut # (Auto) 2400 (0703-3860) /uL Lymph # (Auto) 1300 (5006-8731) /uL [place] # (Auto) 500 (0-900) /uL Eos # (Auto) 100 (0-450) /uL Baso # (Auto) 0 (0-100) /uL PT (10.1-12.7) SECONDS INR (0.9-1.3) APTT (26-36) SECONDS Sodium 138 (137-145) mmol/L Potassium 3.7 (3.4-5.1) mmol/L Chloride 106 (98-107) mmol/L Carbon Dioxide 25 (22-32) mmol/L BUN 15 (9-20) mg/dL Creatinine 0.61 L (0.66-1.25) mg/dL Estimated GFR > 60 (>60) mL/min BUN/Creatinine Ratio 24.6 H (6-22) Glucose 111 H (80-110) mg/dL Calcium 8.0 L (8.4-10.2) mg/dL Magnesium (1.6-2.3) mg/dL Total Bilirubin 1.1 (0.2-1.3) mg/dL AST 22 (17-59) IU/L ALT 21 (<50) IU/L Alkaline Phosphatase 99 (38-126) U/L Total Creatine Kinase 22 L (55-170) U/L CK-MB (CK-2) TNP CK-MB (CK-2) Rel Index TNP Troponin I < 0.012 < 0.012 (0.01-0.034) ng/mL Total Protein 5.5 L (6.3-8.2) g/dL Albumin 3.2 L (3.5-5.0) g/dL Globulin 2.3 (1.7-4.1) g/dL Albumin/Globulin Ratio 1.4 (1.0-2.8) Lipase (23-300) U/L SARS-CoV-2 (PCR) (Negative) 09/18/22 09/19/22 09/19/22 Range/Units 19:55 19:50 19:50 WBC 4.7 (4.5-11.0) X10^3/uL RBC 3.86 L (4.5-5.9) X10^6/uL Hgb 12.2 L (13.5-17.5) g/dL Hct 35.3 L (41-53) % MCV 91.4 (80-100) fL MCH 31.5 (26-34) PG MCHC 34.5 (30-36) % RDW 13.4 (11.6-14.8) % Plt Count 219 (150-400) X10^3/uL Neut % (Auto) 52.2 (50-75) % Lymph % (Auto) 30.3 (25-40) % [place] % (Auto) 14.5 H (3-14) % Eos % (Auto) 2.0 (2-4) % Baso % (Auto) 1.0 (0-2) % Neut # (Auto) 2400 (2519-3697) /uL Lymph # (Auto) 1400 (5899-5720) /uL [place] # (Auto) 700 (0-900) /uL Eos # (Auto) 100 (0-450) /uL Baso # (Auto) 0 (0-100) /uL PT (10.1-12.7) SECONDS INR (0.9-1.3) APTT (26-36) SECONDS Sodium 138 (137-145) mmol/L Potassium 4.0 (3.4-5.1) mmol/L Chloride 104 (98-107) mmol/L Carbon Dioxide 23 (22-32) mmol/L BUN 13 (9-20) mg/dL Creatinine 0.69 (0.66-1.25) mg/dL Estimated GFR > 60 (>60) mL/min BUN/Creatinine Ratio 18.8 (6-22) Glucose 150 H (80-110) mg/dL Calcium 8.4 (8.4-10.2) mg/dL Magnesium (1.6-2.3) mg/dL Total Bilirubin (0.2-1.3) mg/dL AST (17-59) IU/L ALT (<50) IU/L Alkaline Phosphatase (38-126) U/L Total Creatine Kinase (55-170) U/L CK-MB (CK-2) CK-MB (CK-2) Rel Index Troponin I < 0.012 < 0.012 (0.01-0.034) ng/mL Total Protein (6.3-8.2) g/dL Albumin (3.5-5.0) g/dL Globulin (1.7-4.1) g/dL Albumin/Globulin Ratio (1.0-2.8) Lipase (23-300) U/L SARS-CoV-2 (PCR) (Negative) MDM Narrative Medical decision making narrative: Appropriate for transfer. Patient will need cardiac services. Patient signed out to me by Dr. Gregg. A seen evaluated patient myself. Very pleasant. Has known coronary artery disease. Has had 2 attempted cardiac catheterizations at [facility]. Had a perforated coronary artery on the 1. Is supposed to go next week for a 3rd attempt. He apparently has quite significant calcium blockage. To last 10 days he has had some chest discomfort with exertion. It was more frequent and intense today. He started having some mild chest discomfort while I was in the room. Will start her on nitro drip. Awaiting transfer to [facility] he apparently has been accepted. Patient signed out to Dr. Sam. Flaco 09/18/22: This is a 67-year-old male with complaint of chest pain, patient signed out to myself he has been voiding here since yesterday he has known coronary artery disease with 2 attempted cardiac catheterizations at [facility] had a perforated coronary artery during the 2nd and was supposed to return this week for a 3rd attempt he has reportedly significant calcium blockages that make this quite difficult. He has been having chest discomfort with exertion, he had nitro paste on board which seemed to be helpful here in the department but was wiped off returned so nitro drip was started patient has had negative troponins for 18 hours with no acute or dynamic EKG changes. Patient states his chest discomfort had started to return with nitro paste came off but now that he is on a drip he states it has improved. He has been accepted at [facility] by Dr. Berg and Cedric for transfer. There significant bed shortages regionally and patient's boarding while awaiting assignment. Flaco 09/19/22: Patient signed out to myself by Dr. Almendarez. Patient here while awaiting a bed at [facility] for known coronary artery disease and requiring catheterization he is currently still on a nitro drip. Patient has not been having any persistent chest pain. Still awaiting bed at [facility], he has been present 50+ hours awaiting cardiac cath for known disease. Daily labs ordered. Patient signed out to Dr. Almendarez while awaiting potential transfer. We did call [facility] for potential transfer to other facility. Spoke with Dr. Toth, cardiology at [facility] who defers transfer feels more appropriate to be at facility that is well versed in patients complicated cath history. Discharge Plan Departure Patient Disposition: [facility] Clinical Impression: Unstable angina pectoris Prescriptions: No Action atorvastatin 40 mg tablet 40 mg PO DAILY meloxicam 15 mg Tablet 15 mg PO DAILY PRN (Reason: Pain (Scale Score 4-6)) clopidogrel 75 mg tablet 75 mg PO DAILY Label Comments: take 1 tablet by mouth once daily pantoprazole 40 mg tablet,delayed release (DR/EC) 40 mg PO DAILY Adult Low Dose Aspirin 81 mg Tablet 81 mg PO DAILY metoprolol succinate 25 mg tablet extended release 24 hr 25 mg PO DAILY zolpidem 10 mg Tablet 10 mg PO BEDTIME PRN (Reason: Insomnia) calcium citrate 250 mg calcium Tablet 250 mg PO QID Iron Plus Vitamin C 65 mg iron- 125 mg Tablet 1 tab PO DAILY PreserVision AREDS-2 250-90-40-1 mg Capsule 1 cap PO DAILY One Daily Multivitamin-Iron 18 mg iron Tablet 1 tab PO DAILY Referrals: Juan Cummins MD [Primary Care Provider] -
[2022-09-17] MEDS: NITROGLYCERIN OINT 1 INCH/GM OINT...G. TOP (13:39)
[2022-09-17 14:24] LABS: COVID19 -Nasal RAPID Negative (Negative)
[2022-09-17 15:47] LABS: Troponin I < 0.012 ng/mL (0.01-0.034)
[2022-09-17] MEDS: NITROGLYCERIN 50 MG/250 ML INFUS..BTL IV (20:06)
[2022-09-17] MEDS: ACETAMINOPHEN 325 MG TABLET 975 MG PO (20:49)
[2022-09-17 22:34] LABS: Troponin I < 0.012 ng/mL (0.01-0.034)
[2022-09-17] MEDS: ZOLPIDEM 5 MG TABLET 10 MG PO (23:57)
[2022-09-18] VITALS (56 sets, daily range): BP systolic 108–147; BP diastolic 63–82; PULSE 53–84; RESP 11–23; TEMP 36.7; O2SAT 93–97
[2022-09-18 06:07] LABS: Add Manual Diff / Slide Review NO; Basophils Absolute Auto 0 /uL (0-100); Eosinophils Absolute Auto 100 /uL (0-450); Eosinophils Percent Auto 2.8 % (2-4); Hematocrit 32.2 % (41-53); Hemoglobin 11.2 g/dL (13.5-17.5); Lymphocytes Absolute Auto 1300 /uL (1100-4500); Lymphocytes Percent Auto 29.3 % (25-40); Mean Corpuscular HGB Conc 34.7 % (30-36); Mean Corpuscular Hemoglobin 31.6 PG (26-34); Monocytes Absolute Auto 500 /uL (0-900); Monocytes Percent Auto 12.4 % (3-14); Neutrophils Absolute Auto 2400 /uL (1500-7000); Neutrophils Percent Auto 54.5 % (50-75); Platelet Count 175 X10^3/uL (150-400); Red Blood Cell Count 3.54 X10^6/uL (4.5-5.9); Red Cell Distribution Width 13.4 % (11.6-14.8); White Blood Cell Count 4.4 X10^3/uL (4.5-11.0)
[2022-09-18] MEDS: ACETAMINOPHEN 325 MG TABLET 650 MG PO ×2 (06:09→18:31)
[2022-09-18 06:19] LABS: Alanine Aminotransferase 21 IU/L (<50); Albumin 3.2 g/dL (3.5-5.0); Albumin Globulin Ratio 1.4 (1.0-2.8); Alkaline Phosphatase 99 U/L (38-126); Aspartate Aminotransferase 22 IU/L (17-59); BUN Creatinine Ratio 24.6 (6-22); Bilirubin Total 1.1 mg/dL (0.2-1.3); Blood Urea Nitrogen 15 mg/dL (9-20); Carbon Dioxide 25 mmol/L (22-32); Chloride 106 mmol/L (98-107); Creatine Kinase 22 U/L (55-170); Estimated Glomerular Filt Rate > 60 mL/min (>60); Globulin 2.3 g/dL (1.7-4.1); Glucose 111 mg/dL (80-110); HEMOLYSIS 22 (0-50); Potassium 3.7 mmol/L (3.4-5.1); Sodium 138 mmol/L (137-145); Total Protein 5.5 g/dL (6.3-8.2)
[2022-09-18 06:31] LABS: Troponin I < 0.012 ng/mL (0.01-0.034)
[2022-09-18] MEDS: ASPIRIN EC 81 MG TABLET PO (09:39)
[2022-09-18] MEDS: METOPROLOL ER 25 MG TABLET PO (09:40)
[2022-09-18] MEDS: ATORVASTATIN 20 MG TABLET 40 MG PO (09:40)
[2022-09-18] MEDS: PANTOPRAZOLE DR 20 MG TABLET 40 MG PO (09:41)
[2022-09-18] MEDS: CLOPIDOGREL 75 MG TABLET PO (09:41)
[2022-09-18] MEDS: BISACODYL 10 MG SUPP PR (12:04)
[2022-09-18 12:48] LABS: Troponin I < 0.012 ng/mL (0.01-0.034)
--- NOTE | 2022-09-18 18:34 | CM.MNRNOTE ---
c/o chest pain. requested nitro gtt to be increased . chest pain 2/10
[2022-09-18 20:35] LABS: Troponin I < 0.012 ng/mL (0.01-0.034)
--- NOTE | 2022-09-18 21:06 | PC.NURSE ---
DELIVERY AGENT note: spoke to [facility] transfer center. They won't have any beds tonight related to staffing. Call in AM. Wanted to know about drips and medication. Had transfer center speak to ABA Howard.
[2022-09-19] VITALS (41 sets, daily range): BP systolic 95–139; BP diastolic 52–91; PULSE 55–87; RESP 12–39; O2SAT 93–98
[2022-09-19] MEDS: ZOLPIDEM 5 MG TABLET 10 MG PO (00:36)
[2022-09-19] MEDS: ATORVASTATIN 20 MG TABLET 40 MG PO (10:15)
[2022-09-19] MEDS: CLOPIDOGREL 75 MG TABLET PO (10:15)
[2022-09-19] MEDS: PANTOPRAZOLE DR 20 MG TABLET 40 MG PO (10:15)
[2022-09-19] MEDS: METOPROLOL ER 25 MG TABLET PO (10:16)
[2022-09-19] MEDS: ASPIRIN EC 81 MG TABLET PO (10:16)
--- NOTE | 2022-09-19 13:28 | PC.NURSE ---
vitals were added. I was only present for vitals from 0700.
--- NOTE | 2022-09-19 19:51 | PC.NURSE ---
pt sitting on chair friends at bedside, pt without any c/o at this time,blood drawn for repeat labs
[2022-09-19 19:58] LABS: Add Manual Diff / Slide Review NO; Basophils Absolute Auto 0 /uL (0-100); Eosinophils Absolute Auto 100 /uL (0-450); Hematocrit 35.3 % (41-53); Hemoglobin 12.2 g/dL (13.5-17.5); Lymphocytes Absolute Auto 1400 /uL (1100-4500); Lymphocytes Percent Auto 30.3 % (25-40); Mean Corpuscular HGB Conc 34.5 % (30-36); Mean Corpuscular Hemoglobin 31.5 PG (26-34); Mean Corpuscular Volume 91.4 fL (80-100); Monocytes Absolute Auto 700 /uL (0-900); Monocytes Percent Auto 14.5 % (3-14); Neutrophils Absolute Auto 2400 /uL (1500-7000); Neutrophils Percent Auto 52.2 % (50-75); Platelet Count 219 X10^3/uL (150-400); Red Blood Cell Count 3.86 X10^6/uL (4.5-5.9); Red Cell Distribution Width 13.4 % (11.6-14.8); White Blood Cell Count 4.7 X10^3/uL (4.5-11.0)
[2022-09-19 20:15] LABS: BUN Creatinine Ratio 18.8 (6-22); Blood Urea Nitrogen 13 mg/dL (9-20); Calcium 8.4 mg/dL (8.4-10.2); Carbon Dioxide 23 mmol/L (22-32); Chloride 104 mmol/L (98-107); Estimated Glomerular Filt Rate > 60 mL/min (>60); Glucose 150 mg/dL (80-110); HEMOLYSIS 16 (0-50); Sodium 138 mmol/L (137-145)
[2022-09-19 20:27] LABS: Troponin I < 0.012 ng/mL (0.01-0.034)
--- NOTE | 2022-09-19 20:30 | PC.NURSE ---
attempted to wean pt off of NTG as per orders from Dr Almendarez, pt stated he did not want the medication changed states it took them 3 days to get me to where I was comfortable and I do not want to mess with it, Dr Almendarez informed
[2022-09-20] VITALS (9 sets, daily range): BP systolic 107–121; BP diastolic 56–74; PULSE 59–80; RESP 12–29; O2SAT 93–96
[2022-09-20] MEDS: ZOLPIDEM 5 MG TABLET 10 MG PO (02:33)
--- NOTE | 2022-09-20 07:38 | PC.NURSE ---
pt left about [id number] report called to ABA Napier at [facility]
== END 2022-09-20 06:30 | disposition short-term general hospital (02) ==
PROVIDERS: Emergency Medicine; Emergency Provider Emergency Medicine; Family Provider Family Medicine; PCP Family Medicine
DX: I20.0 Unstable angina (principal); R07.9 Chest pain, unspecified; R06.00 Dyspnea, unspecified; Z95.5 Presence of coronary angioplasty implant and graft; Z79.899 Other long term (current) drug therapy; Z20.822 Contact with and (suspected) exposure to COVID-19
CPT/HCPCS: 36415; 71045; 80048; 80053; 82550; 83690; 83735; 84484; 85025; 85610; 85730; 87635; 93005; 96365; 96366; 99285; C9803

== ENCOUNTER 2023-03-17 08:30 | Outpatient (RCR) | payer MEDICARE, OTHER, SELFPAY | END 2023-03-17 13:53 | LOC: CAR 08:30 | PROVIDERS: Family Provider Family Medicine; PCP Family Medicine; Referring Provider Internal Medicine Cardiovascular Disease; Visit Provider Internal Medicine Cardiovascular Disease | DX: Z95.5 Presence of coronary angioplasty implant and graft (principal) | CPT/HCPCS: 93798 ==

== ENCOUNTER 2024-07-26 08:15 | Outpatient (RCR) | payer MEDICARE, OTHER, SELFPAY ==
--- NOTE | 2024-06-26 10:23 | PT.OIE ---
Current Diagnoses Lymphedema, not elsewhere classified (06/26/24) Visit Care Team Role Provider Type Juan Cummins MD Primary Care Provider Physician Specialty: Family Practice Address: [address] [place] [address], [facility], [place], [address] Email: [email or web address] Antoni Berrios MD Family Provider Non-Staff Specialty: [facility] Practice Address: [address] [place] [address], [facility], [place], [address] Email: [email or web address] Pedro Sparks MD Attending Provider Non-Staff Referring Provider Specialty: Internal Medicine Address: [address] [place] [address], [facility], [place], [address] Email: Physical Therapy Initial Evaluation PT-OP-A Visit Information Start: 06/26/24 08:02 Freq: Status: Active Protocol: Document 06/26/24 08:12 [facility] (Rec: 06/26/24 09:14 [facility] [id number]) Out-Patient Physical Therapy Visit Information Visit Information Visit Type Initial Evaluation Visit Start Time 08:13 Visit Stop Time 09:45 Visit Number 1 Evaluation Information Evaluation Date 06/26/24 Precautions Precautions prostate CA, history 40-50 lymph nodes removed PT-OP-B Current Condition Start: 06/26/24 08:02 Freq: Status: Active Protocol: Document 06/26/24 08:12 [facility] (Rec: 06/26/24 09:14 [facility] [id number]) Current Condition History of Current Condition Onset Date lifetime Current Complaints lifetime swelling lower legs History of Current Condition late went for bloodflow testing, reports testing showed his valves in veins don 't fully close. States right leg swells more than left , especially since MRSA 2008 ( had hold in his infante, spent 10 days i hospital in [place], then [place], still had wound and MRSA. Then treated at [facility] and was put on IV antibiotics. Doctor's say that injury killed a lot of his lymph system. States swelling worsens throughout day. Diagnosed with Grade 4 intraductal carcinama, acinar adenocarcinoma, and grade 5 acinar adenocarcinama, radical prostatectomy. Usually wears compression socks and lace up boots which mostly helps except top of foot. 2020 40- 50 lymph nodes removed abdomen . Has also worn toe cap. Uses donning wire frame. Also has a TENS mat. Prior Treatments and Tests has worn compression stockings and toe caps 20-30 mm Hg knee high Treatment Goals Patient/Caregiver Goals Decrease edema and be able to self manage lymphedema Prior Functional Status Baseline Function- ADL's Independent Baseline Function- Mobility Independent Baseline Function- Gait indep Baseline Function- Work/School retired due to [place] Baseline Function- Recreation/Hobbies hunting, welding Current Functional Impairments (Reported) Functional Limitations- ADL's takes more time Functional Limitations- Mobility/Gait limited due to weight of leg Functional Limitations- Recreation/ swelling increases Hobbies PT-OP-C Subjective Start: 06/26/24 08:02 Freq: Status: Active Protocol: Document 06/26/24 08:13 [facility] (Rec: 06/26/24 10:21 [facility] [id number]) Patient Questionnaires Lymphedema Life Impact Score Lymphedema Score 17 OP-PT Pain Assessment Pain Assessment Grid Paper Pain Assessment Grid Completed No PT-OP-F Manual Assessment Start: 06/26/24 08:02 Freq: Status: Active Protocol: Document 06/26/24 08:13 [facility] (Rec: 06/26/24 10:21 [facility] [id number]) Manual Assessments Soft Tissue Assessment Soft Tissue Mobility Assessment no fibrosis evident, no warmth or redness PT-OP-H Neuro Start: 06/26/24 08:02 Freq: Status: Active Protocol: Document 06/26/24 08:13 [facility] (Rec: 06/26/24 10:21 [facility] [id number]) Sensation Evaluation Gross Sensation Gross Sensation WNL PT-OP-J Posture/Palpation/Skin Start: 06/26/24 08:02 Freq: Status: Active Protocol: Document 06/26/24 08:13 [facility] (Rec: 06/26/24 10:21 [facility] [id number]) Palpation Assessment Location yair LE's Palpation Findings Edema Palpation Details no increased warmth or redness Skin Assessment Edema Assessment yair LE's Edema Type Pitting Edema Degree 4+ Edema Appearance Puffy,Taut Subjective Edema Description Tightness Comments lymphedema right greater than left Other Assessments Skin Assessment Comments intact, no open sores, no weeping PT-OP-K Range of Motion Start: 06/26/24 08:02 Freq: Status: Active Protocol: Document 06/26/24 08:13 [facility] (Rec: 06/26/24 10:21 [facility] [id number]) Hip Goniometric Range of Motion Hip yair Hip ROM WFL Yes Knee Goniometric Range of Motion Knee yair Knee ROM WFL Yes Ankle and Foot Goniometric Range of Motion Ankle and Foot yair Comments mild decrease due to edema right greater than left PT-OP-L Special Tests Start: 06/26/24 08:02 Freq: Status: Active Protocol: Document 06/26/24 08:13 [facility] (Rec: 06/26/24 10:21 [facility] [id number]) Special Tests Foot/Ankle Special Tests stemmer Test Results positive yair Comments for lymphedema PT-OP-N Lymphedema Start: 06/26/24 08:02 Freq: Status: Active Protocol: Document 06/26/24 08:12 [facility] (Rec: 06/26/24 09:14 [facility] [id number]) Lymphedema Measurements Lower Extremity Circumference Measurements Right Affected MT Heads 27.9 cm Mid-foot 26.8 cm Medial Malleolus 30 cm 10 cm From Medial Malleolus 27.3 cm 20 cm From Medial Malleolus 37.8 cm 30 cm From Medial Malleolus 37.9 cm 40 cm From Medial Malleolus 41.2 cm 50 cm From Medial Malleolus 46.5 cm 60 cm From Medial Malleolus 54 cm 70 cm From Medial Malleolus 58.4 cm Knee Joint 43.8 cm Left Affected MT Heads 26.2 cm Mid-foot 26.2 cm Medial Malleolus 28.3 cm 10 cm From Medial Malleolus 27.9 cm 20 cm From Medial Malleolus 38.3 cm 30 cm From Medial Malleolus 39.3 cm 40 cm From Medial Malleolus 40.5 cm 50 cm From Medial Malleolus 44.2 cm 60 cm From Medial Malleolus 51 cm 70 cm From Medial Malleolus 55.6 cm Knee Joint 42 cm PT-OP-Q Treatments Start: 06/26/24 08:02 Freq: Status: Active Protocol: Document 06/26/24 08:13 [facility] (Rec: 06/26/24 10:21 [facility] [id number]) Lymphedema Treatment Manual Lymphatic Drainage Location right LE Duration 15 Comments with patient education regarding technique Lymphedema Wrapping Body Location right LE Materials Toe wrap, Size F Tricofix, Artiflex (2), Comprilan (6,8, 10) Other with patient education regarding technique, remove if painful or toes turning purple, re-do if sliding down. Leave on 23 hours/day. Given written and online resources for technique learning Sequential Lymphedema Exercises Location instructed and issued written information Duration 10 min Comments Recumbant elliptical (Sci-Fit) x 10 min level 2-6 to facilitate lymphatic flow following compression bandaging. Compression Garment Assessment Compression Garment Assessment Details patient did not bring Patient Education Lymphedema Pathology educated Lymphedema Prevention educated Lymphedema Precautions educated Compression Garments discussed options and given online resource Self Manual Lymphatic Drainage instructed Sequential Lymphedema Exercises instructed Other encouraged patien to bring for education in bandaging technique PT-OP-T Assessment and Plan Start: 06/26/24 08:02 Freq: Status: Active Protocol: Document 06/26/24 08:13 [facility] (Rec: 06/26/24 10:21 [facility] [id number]) Physical Therapy Assessment Rehab Potential Rehabilitation Potential Good Evaluation Complexity Number of Personal Factors/Comorbidities 1-2 Number of Body Systems Impaired 3 Clinical Presentation at Evaluation Evolving Impairments Impairments Activity Tolerance,Edema Goals Two Impairment lymphedema life impact scale 17% Senior Care Goal (LTG) Decrease lymphedema life impact scale to no greater than 7% as measure of improved lymphedema and ability to self manage LTG Duration 09/25/24 One Impairment lymphedema yair LE's right greater than left Short Term Goal (STG) Patient will be instructed in all aspects of lymphedema self -care to include skin care, elevation, self-massage, self- bandaging/compression options, and lymphedema exercises. STG Duration 08/15/24 Transformer Molder Goal (LTG) Decrease patient?s lymphedema to a stable level (no increase or decrease greater than 1 cm over the course of 1 week), patient to be independent with all aspects of self-care for lymphedema, and will obtain appropriate compression garment for lymphedema management in the home. LTG Duration 09/25/24 Assessment Summary Assessment Patient presents to PT with function-limiting lymphedema bilateral LE's right greater than left which appears due to cancer treatment 2020 with removal of 40-50 lymph nodes in abdomen and groin per his report due to bone metastasis. Continues taking oral chemotherapy medication. Has not had treatment for lymphedema but has purchased compression garments on his own over the years but reports don't seem to be adequate. By the end of the day edema worsens and patient showed me pictures of deep pitting edema in his right foot and ankle. He also reports what sounds like history venous insufficiency in LE's. No history of cellulitis in his legs. He is at high risk for worsening of lymhedema and complications that can arise as a result. Feel he will benefit from Complete Decongestive Therapy to decrease his lymphedema, educate him in self management and get him fit with appropriate compression garments for bilateral LE's. POC was discussed and patient was in agreement. Physical Therapy Plan Frequency and Duration Frequency of Treatment 20 Duration of treatment (weeks) 12 Plan of Care Start Date 06/26/24 Plan of Care End Date 09/25/24 Therapeutic Interventions Therapeutic Interventions Home Exercise Program, Lymphedema Management,Manual Therapy,Patient/Caregiver Education,Self-Care/Home Management,Soft Tissue Mobilization,Taping, Therapeutic Activities, Therapeutic Exercises Modalities Vasopneumatic Devices Next Visit Focus/Plan Next Note Type Treatment Note Next Visit Plan Assess response to self bandaging and patient ability to self bandage. Review MLD, lymphedema exercises, skin care, elevation. Continue CDT and instruct in bandaging of pts LE's if she is able to come to PT.
--- NOTE | 2024-06-26 10:23 | PT.OPPOC ---
Physical, Occupational & Speech Therapy At [facility] Current Diagnoses Lymphedema, not elsewhere classified (06/26/24) Visit Care Team Role Provider Type Juan Cummins MD Primary Care Provider Physician Specialty: Family Practice Address: [address] [facility], [place], [address] Email: [email or web address] Antoni Berrios MD Family Provider Non-Staff Specialty: Family Practice Address: [address] [facility] [address], [place], [address] Email: [email or web address] Pedro [email or web address] MD Attending Provider Non-Staff Referring Provider Specialty: Internal Medicine Address: [address] [place] [address], [facility], [place], [address] Email: Plan Of Care PT-OP-B Current Condition Start: 06/26/24 08:02 Freq: Status: Active Protocol: Document 06/26/24 08:12 [facility] (Rec: 06/26/24 09:14 [facility] [id number]) Current Condition History of Current Condition Onset Date lifetime Current Complaints lifetime swelling lower legs History of Current Condition late went for bloodflow testing, reports testing showed his valves in veins don 't fully close. States right leg swells more than left , especially since MRSA 2008 ( had hold in his infante, spent 10 days i hospital in [place], then [place], still had wound and MRSA. Then treated at [facility] and was put on IV antibiotics. Doctor's say that injury killed a lot of his lymph system. States swelling worsens throughout day. Diagnosed with Grade 4 intraductal carcinama, acinar adenocarcinoma, and grade 5 acinar adenocarcinama, radical prostatectomy. Usually wears compression socks and lace up boots which mostly helps except top of foot. 2020 40- 50 lymph nodes removed abdomen . Has also worn toe cap. Uses donning wire frame. Also has a TENS mat. Prior Treatments and Tests has worn compression stockings and toe caps 20-30 mm Hg knee high Treatment Goals Patient/Caregiver Goals Decrease edema and be able to self manage lymphedema Prior Functional Status Baseline Function- ADL's Independent Baseline Function- Mobility Independent Baseline Function- Gait indep Baseline Function- Work/School retired due to [place] Baseline Function- Recreation/Hobbies hunting, welding Current Functional Impairments (Reported) Functional Limitations- ADL's takes more time Functional Limitations- Mobility/Gait limited due to weight of leg Functional Limitations- Recreation/ swelling increases Hobbies PT-OP-T Assessment and Plan Start: 06/26/24 08:02 Freq: Status: Active Protocol: Document 06/26/24 08:13 [facility] (Rec: 06/26/24 10:21 [facility] [id number]) Physical Therapy Assessment Rehab Potential Rehabilitation Potential Good Evaluation Complexity Number of Personal Factors/Comorbidities 1-2 Number of Body Systems Impaired 3 Clinical Presentation at Evaluation Evolving Impairments Impairments Activity Tolerance,Edema Goals Two Impairment lymphedema life impact scale 17% Geographic Information Systems Engineer Goal (LTG) Decrease lymphedema life impact scale to no greater than 7% as measure of improved lymphedema and ability to self manage LTG Duration 09/25/24 One Impairment lymphedema yair LE's right greater than left Short Term Goal (STG) Patient will be instructed in all aspects of lymphedema self -care to include skin care, elevation, self-massage, self- bandaging/compression options, and lymphedema exercises. STG Duration 08/15/24 Geographic Information Systems Engineer Goal (LTG) Decrease patient?s lymphedema to a stable level (no increase or decrease greater than 1 cm over the course of 1 week), patient to be independent with all aspects of self-care for lymphedema, and will obtain appropriate compression garment for lymphedema management in the home. LTG Duration 09/25/24 Assessment Summary Assessment Patient presents to PT with function-limiting lymphedema bilateral LE's right greater than left which appears due to cancer treatment 2020 with removal of 40-50 lymph nodes in abdomen and groin per his report due to bone metastasis. Continues taking oral chemotherapy medication. Has not had treatment for lymphedema but has purchased compression garments on his own over the years but reports don't seem to be adequate. By the end of the day edema worsens and patient showed me pictures of deep pitting edema in his right foot and ankle. He also reports what sounds like history venous insufficiency in LE's. No history of cellulitis in his legs. He is at high risk for worsening of lymhedema and complications that can arise as a result. Feel he will benefit from Complete Decongestive Therapy to decrease his lymphedema, educate him in self management and get him fit with appropriate compression garments for bilateral LE's. POC was discussed and patient was in agreement. Physical Therapy Plan Frequency and Duration Frequency of Treatment 20 Duration of treatment (weeks) 12 Plan of Care Start Date 06/26/24 Plan of Care End Date 09/25/24 Therapeutic Interventions Therapeutic Interventions Home Exercise Program, Lymphedema Management,Manual Therapy,Patient/Caregiver Education,Self-Care/Home Management,Soft Tissue Mobilization,Taping, Therapeutic Activities, Therapeutic Exercises Modalities Vasopneumatic Devices Next Visit Focus/Plan Next Note Type Treatment Note Next Visit Plan Assess response to self bandaging and patient ability to self bandage. Review MLD, lymphedema exercises, skin care, elevation. Continue CDT and instruct in bandaging of pts LE's if she is able to come to PT. Plan of Care Dates Plan of Care Start Date 06/26/24 Plan of Care End Date 09/25/24 Electronically Signed by: Di Marley, PT 06/26/24 4475 If you are in agreement with this Plan of Care, please return a signed and dated copy. I have reviewed this Plan of Care and certify that the skilled therapy services above are required to meet the patient?s needs. Physician Signature Date Printed Name and Credentials Clinical Instructor Signature Printed Name and Credentials
--- NOTE | 2024-07-05 11:01 | PT.OTN ---
Current Diagnoses Lymphedema, not elsewhere classified (07/26/24) Physical Therapy Treatment Note PT-OP-A Visit Information Start: 06/26/24 08:02 Freq: Status: Active Protocol: Document 07/26/24 08:14 [facility] (Rec: 07/26/24 08:53 [facility] [id number]) Out-Patient Physical Therapy Visit Information Visit Information Visit Type Treatment Note Visit Start Time 08:15 Visit Number 6 Evaluation Information Evaluation Date 06/26/24 Precautions Precautions prostate CA, history 40-50 lymph nodes removed PT-OP-B Current Condition Start: 06/26/24 08:02 Freq: Status: Active Protocol: Document 07/26/24 08:14 [facility] (Rec: 07/26/24 08:53 [facility] [id number]) Current Condition History of Current Condition Onset Date lifetime Current Complaints lifetime swelling lower legs History of Current Condition late went for bloodflow testing, reports testing showed his valves in veins don 't fully close. States right leg swells more than left , especially since MRSA 2008 ( had hole in his infante, spent 10 days in hospital in [place], then [place], still had wound and MRSA. Then treated at [facility] and was put on IV antibiotics. Doctor's say that injury killed a lot of his lymph system. States swelling worsens throughout day. Diagnosed with Grade 4 intraductal carcinama, acinar adenocarcinoma, and grade 5 acinar adenocarcinama, radical prostatectomy. Usually wears compression socks and lace up boots which mostly helps except top of foot. 2020 40- 50 lymph nodes removed abdomen . Has also worn toe cap. Uses donning wire frame. Also has a TENS mat. Prior Treatments and Tests has worn compression stockings and toe caps 20-30 mm Hg knee high PT-OP-C Subjective Start: 06/26/24 08:02 Freq: Status: Active Protocol: Document 07/26/24 08:14 [facility] (Rec: 07/26/24 08:53 [facility] [id number]) OP-PT Subjective Patient Comments Patient Comments Reporting may want to do PT for his balance after finishes for lymphedema. PT-OP-F Manual Assessment Start: 06/26/24 08:02 Freq: Status: Active Protocol: Document 06/26/24 08:13 [facility] (Rec: 06/26/24 10:21 [facility] [id number]) Manual Assessments Soft Tissue Assessment Soft Tissue Mobility Assessment no fibrosis evident, no warmth or redness PT-OP-H Neuro Start: 06/26/24 08:02 Freq: Status: Active Protocol: Document 06/26/24 08:13 [facility] (Rec: 06/26/24 10:21 [facility] [id number]) Sensation Evaluation Gross Sensation Gross Sensation WNL PT-OP-J Posture/Palpation/Skin Start: 06/26/24 08:02 Freq: Status: Active Protocol: Document 06/26/24 08:13 [facility] (Rec: 06/26/24 10:21 [facility] [id number]) Palpation Assessment Location yair LE's Palpation Findings Edema Palpation Details no increased warmth or redness Skin Assessment Edema Assessment yair LE's Edema Type Pitting Edema Degree 4+ Edema Appearance Puffy,Taut Subjective Edema Description Tightness Comments lymphedema right greater than left Other Assessments Skin Assessment Comments intact, no open sores, no weeping PT-OP-K Range of Motion Start: 06/26/24 08:02 Freq: Status: Active Protocol: Document 06/26/24 08:13 [facility] (Rec: 06/26/24 10:21 [facility] [id number]) Hip Goniometric Range of Motion Hip yair Hip ROM WFL Yes Knee Goniometric Range of Motion Knee yair Knee ROM WFL Yes Ankle and Foot Goniometric Range of Motion Ankle and Foot yair Comments mild decrease due to edema right greater than left PT-OP-L Special Tests Start: 06/26/24 08:02 Freq: Status: Active Protocol: Document 06/26/24 08:13 [facility] (Rec: 06/26/24 10:21 [facility] [id number]) Special Tests Foot/Ankle Special Tests stemmer Test Results positive yair Comments for lymphedema PT-OP-N Lymphedema Start: 06/26/24 08:02 Freq: Status: Active Protocol: Document 07/26/24 08:14 [facility] (Rec: 07/26/24 08:53 [facility] [id number]) Lymphedema Measurements Lower Extremity Circumference Measurements Right Affected MT Heads 26.2 cm Mid-foot 24.8 cm Medial Malleolus 29.3 cm 10 cm From Medial Malleolus 24.6 cm 20 cm From Medial Malleolus 33.8 cm 30 cm From Medial Malleolus 34.4 cm 40 cm From Medial Malleolus 39.2 cm 50 cm From Medial Malleolus 42.6 cm 60 cm From Medial Malleolus 46.9 cm 70 cm From Medial Malleolus 57.7 cm Knee Joint 40.7 cm Left Affected MT Heads 26.3 cm Mid-foot 24.7 cm Medial Malleolus 27.8 cm 10 cm From Medial Malleolus 25.2 cm 20 cm From Medial Malleolus 34.4 cm 30 cm From Medial Malleolus 34.8 cm 40 cm From Medial Malleolus 38.5 cm 50 cm From Medial Malleolus 42 cm 60 cm From Medial Malleolus 46 cm 70 cm From Medial Malleolus 55 cm Knee Joint 40.8 cm PT-OP-Q Treatments Start: 06/26/24 08:02 Freq: Status: Active Protocol: Document 07/26/24 08:14 [facility] (Rec: 07/26/24 08:53 [facility] [id number]) Cardio Equipment Recumbent Stepper (Sci-Fit) Duration (Minutes) 10 Resistance 3-5 Seat Position 14 Lymphedema Treatment Manual Lymphatic Drainage Location right LE Duration 15 Comments with patient education regarding technique Lymphedema Wrapping Body Location right LE Materials No bandaging due to patient reported difficulty including unstable angina with exertion, prefers to wear layered compression stockings, just got Circ-Aid toe cap for right LE as well with good fit. Wearing 20-30 mm Hg thigh high , topped with 20-30 mm Hg knee high plus toe cap right with good tolerance and fit. Sequential Lymphedema Exercises Location reviewed ROM ex all LE joints, trunk, deep breathing to facil lymphatic chela Compression Garment Assessment Compression Garment Assessment Details good fit of all as above but recommend 30-40 mm Hg thigh high compression stockings plus toe cap right; consider open toe on right. Patient using wire cage donning device . Patient to go to [employer] tomorrow. PT-OP-T Assessment and Plan Start: 06/26/24 08:02 Freq: Status: Active Protocol: Document 07/26/24 08:14 [facility] (Rec: 07/26/24 08:53 [facility] [id number]) Physical Therapy Assessment Goals Two Impairment lymphedema life impact scale 17% Shelter Goal (LTG) Decrease lymphedema life impact scale to no greater than 7% as measure of improved lymphedema and ability to self manage 07/26/24: good goal progress LTG Duration 09/25/24 One Impairment lymphedema yair LE's right greater than left Short Term Goal (STG) Patient will be instructed in all aspects of lymphedema self -care to include skin care, elevation, self-massage, self- bandaging/compression options, and lymphedema exercises. 07/09/24: goal met STG Duration goal met It Software Developer Goal (LTG) Decrease patient?s lymphedema to a stable level (no increase or decrease greater than 1 cm over the course of 1 week), patient to be independent with all aspects of self-care for lymphedema, and will obtain appropriate compression garment for lymphedema management in the home. 07/26/24: good goal progress LTG Duration 09/25/24 Progress Towards Goals Progress Towards Goals Progressing Toward Goals Assessment Summary Assessment Started session with recumbant elliptical with patient wearig compression garments, notable decrease in circumferential measurements today, good feedback for patient regarding effect of exercise on lymphatic flow, encouraged to resume maintentance cardiac rehab. Physical Therapy Plan Frequency and Duration Frequency of Treatment 20 Duration of treatment (weeks) 12 Plan of Care Start Date 06/26/24 Plan of Care End Date 09/25/24 Therapeutic Interventions Therapeutic Interventions Home Exercise Program, Lymphedema Management,Manual Therapy,Patient/Caregiver Education,Self-Care/Home Management,Soft Tissue Mobilization,Taping, Therapeutic Activities, Therapeutic Exercises Modalities Vasopneumatic Devices Next Visit Focus/Plan Next Note Type Treatment Note Next Visit Plan Follow-up in 3-4 weeks to assure good fit of compression garments then anticipate discharge from PT to self care for lymphedema.
--- NOTE | 2024-07-09 16:24 | PT.OTN ---
Current Diagnoses Lymphedema, not elsewhere classified (07/09/24) Physical Therapy Treatment Note PT-OP-A Visit Information Start: 06/26/24 08:02 Freq: Status: Active Protocol: Document 07/09/24 14:30 SAK (Rec: 07/09/24 14:49 [facility] [id number]) Out-Patient Physical Therapy Visit Information Visit Information Visit Type Treatment Note Visit Start Time 14:31 Visit Stop Time 15:55 Visit Number 3 Evaluation Information Evaluation Date 06/26/24 Precautions Precautions prostate CA, history 40-50 lymph nodes removed PT-OP-B Current Condition Start: 06/26/24 08:02 Freq: Status: Active Protocol: Document 07/09/24 14:30 SAK (Rec: 07/09/24 14:49 SAK [id number]) Current Condition History of Current Condition Onset Date lifetime Current Complaints lifetime swelling lower legs History of Current Condition late went for bloodflow testing, reports testing showed his valves in veins don 't fully close. States right leg swells more than left , especially since MRSA 2008 ( had hole in his infante, spent 10 days in hospital in [place], then [place], still had wound and MRSA. Then treated at [facility] and was put on IV antibiotics. Doctor's say that injury killed a lot of his lymph system. States swelling worsens throughout day. Diagnosed with Grade 4 intraductal carcinama, acinar adenocarcinoma, and grade 5 acinar adenocarcinama, radical prostatectomy. Usually wears compression socks and lace up boots which mostly helps except top of foot. 2020 40- 50 lymph nodes removed abdomen . Has also worn toe cap. Uses donning wire frame. Also has a TENS mat. Prior Treatments and Tests has worn compression stockings and toe caps 20-30 mm Hg knee high PT-OP-C Subjective Start: 06/26/24 08:02 Freq: Status: Active Protocol: Document 07/09/24 14:30 SAK (Rec: 07/09/24 14:49 [facility] [id number]) OP-PT Subjective Patient Comments Patient Comments Has not made an appointment with [facility] yet, states will this afternoon. Has been wearing thigh high compression stockings topped by knee high compression stockings 20-30 mm Hg. Also just received Circaid Toe Cap which fits well. States his thigh high were in the laundry this am, so only wore knee high most of the day until shortly before coming to PT donned thigh high PT-OP-F Manual Assessment Start: 06/26/24 08:02 Freq: Status: Active Protocol: Document 06/26/24 08:13 SAK (Rec: 06/26/24 10:21 [facility] [id number]) Manual Assessments Soft Tissue Assessment Soft Tissue Mobility Assessment no fibrosis evident, no warmth or redness PT-OP-H Neuro Start: 06/26/24 08:02 Freq: Status: Active Protocol: Document 06/26/24 08:13 SAK (Rec: 06/26/24 10:21 [facility] [id number]) Sensation Evaluation Gross Sensation Gross Sensation WNL PT-OP-J Posture/Palpation/Skin Start: 06/26/24 08:02 Freq: Status: Active Protocol: Document 06/26/24 08:13 SAK (Rec: 06/26/24 10:21 [facility] [id number]) Palpation Assessment Location yair LE's Palpation Findings Edema Palpation Details no increased warmth or redness Skin Assessment Edema Assessment yair LE's Edema Type Pitting Edema Degree 4+ Edema Appearance Puffy,Taut Subjective Edema Description Tightness Comments lymphedema right greater than left Other Assessments Skin Assessment Comments intact, no open sores, no weeping PT-OP-K Range of Motion Start: 06/26/24 08:02 Freq: Status: Active Protocol: Document 06/26/24 08:13 SAK (Rec: 06/26/24 10:21 [facility] [id number]) Hip Goniometric Range of Motion Hip yair Hip ROM WFL Yes Knee Goniometric Range of Motion Knee yair Knee ROM WFL Yes Ankle and Foot Goniometric Range of Motion Ankle and Foot yair Comments mild decrease due to edema right greater than left PT-OP-L Special Tests Start: 06/26/24 08:02 Freq: Status: Active Protocol: Document 06/26/24 08:13 SAK (Rec: 06/26/24 10:21 [facility] [id number]) Special Tests Foot/Ankle Special Tests stemmer Test Results positive yair Comments for lymphedema PT-OP-N Lymphedema Start: 06/26/24 08:02 Freq: Status: Active Protocol: Document 07/09/24 14:30 SAK (Rec: 07/09/24 14:49 SAK [id number]) Lymphedema Measurements Lower Extremity Circumference Measurements Right Affected MT Heads 26.4 cm Mid-foot 24.7 cm Medial Malleolus 28.4 cm 10 cm From Medial Malleolus 24.7 cm 20 cm From Medial Malleolus 34.6 cm 30 cm From Medial Malleolus 34.8 cm 40 cm From Medial Malleolus 39.8 cm 50 cm From Medial Malleolus 43.7 cm 60 cm From Medial Malleolus 48.8 cm 70 cm From Medial Malleolus 56.5 cm Knee Joint 41.5 cm Left Affected MT Heads 26.2 cm Mid-foot 24.7 cm Medial Malleolus 27 cm 10 cm From Medial Malleolus 25.6 cm 20 cm From Medial Malleolus 35.2 cm 30 cm From Medial Malleolus 35.5 cm 40 cm From Medial Malleolus 38.8 cm 50 cm From Medial Malleolus 41.9 cm 60 cm From Medial Malleolus 45.7 cm 70 cm From Medial Malleolus 55 cm Knee Joint 40.5 cm PT-OP-Q Treatments Start: 06/26/24 08:02 Freq: Status: Active Protocol: Document 07/09/24 14:30 [facility] (Rec: 07/09/24 14:49 [facility] [id number]) Lymphedema Treatment Manual Lymphatic Drainage Location right LE Duration 15 Comments with patient education regarding technique Lymphedema Wrapping Body Location right LE Materials No bandaging due to patient reported difficulty including unstable angina with exertion, prefers to wear layered compression stockings, just got Circ-Aid toe cap for right LE as well with good fit. Wearing 20-30 mm Hg thigh high , topped with 20-30 mm Hg knee high plus toe cap right with good tolerance and fit. Sequential Lymphedema Exercises Location reviewed ROM ex all LE joints, trunk, deep breathing to facil lymphatic chela Compression Garment Assessment Compression Garment Assessment Details good fit of all as above but recommend 30-40 mm Hg thigh high compression stockings plus toe cap right; consider open toe on right. Patient using wire cage donning device . PT-OP-T Assessment and Plan Start: 06/26/24 08:02 Freq: Status: Active Protocol: Document 07/09/24 14:30 [facility] (Rec: 07/09/24 14:49 [facility] [id number]) Physical Therapy Assessment Goals Two Impairment lymphedema life impact scale 17% [employer] Goal (LTG) Decrease lymphedema life impact scale to no greater than 7% as measure of improved lymphedema and ability to self manage LTG Duration 09/25/24 One Impairment lymphedema yair LE's right greater than left Short Term Goal (STG) Patient will be instructed in all aspects of lymphedema self -care to include skin care, elevation, self-massage, self- bandaging/compression options, and lymphedema exercises. 07/09/24: goal met STG Duration goal met Assisted Goal (LTG) Decrease patient?s lymphedema to a stable level (no increase or decrease greater than 1 cm over the course of 1 week), patient to be independent with all aspects of self-care for lymphedema, and will obtain appropriate compression garment for lymphedema management in the home. LTG Duration 09/25/24 Assessment Summary Assessment Patient circumferential measurements decreased distally but increased from knee proxially due to limited time wearing thigh high compression today. May benefit from 30-40 mm Hg thigh high compression so doesn't have to layer. Good fit of Circ-aid toe cap, though 5th digit a little long. Patient has limited ability to exercise due to unstable angina and he reported dilated ascending aorta to PT today. Patient to make appointment with [facility] in [place], hopeful for appointment on Tuesday. \ Feel he will also benefit from the use of a sequential pneumatic pump. Physical Therapy Plan Frequency and Duration Frequency of Treatment 20 Duration of treatment (weeks) 12 Plan of Care Start Date 06/26/24 Plan of Care End Date 09/25/24 Therapeutic Interventions Therapeutic Interventions Home Exercise Program, Lymphedema Management,Manual Therapy,Patient/Caregiver Education,Self-Care/Home Management,Soft Tissue Mobilization,Taping, Therapeutic Activities, Therapeutic Exercises Modalities Vasopneumatic Devices Next Visit Focus/Plan Next Note Type Treatment Note Next Visit Plan Patient to make appointment with [facility] for the end of this week. Continue CDT for maximal reduction, improved function, assure appropriate compression garments.
--- NOTE | 2024-07-19 09:41 | PT.OTN ---
Current Diagnoses Lymphedema, not elsewhere classified (07/19/24) Physical Therapy Treatment Note PT-OP-A Visit Information Start: 06/26/24 08:02 Freq: Status: Active Protocol: Document 07/19/24 08:15 SAK (Rec: 07/19/24 08:46 SAK [id number]) Out-Patient Physical Therapy Visit Information Visit Information Visit Type Treatment Note Visit Start Time 08:16 Visit Stop Time 09:39 Visit Number 4 Evaluation Information Evaluation Date 06/26/24 Precautions Precautions prostate CA, history 40-50 lymph nodes removed PT-OP-B Current Condition Start: 06/26/24 08:02 Freq: Status: Active Protocol: Document 07/19/24 08:15 SAK (Rec: 07/19/24 08:46 SAK [id number]) Current Condition History of Current Condition Onset Date lifetime Current Complaints lifetime swelling lower legs History of Current Condition late went for bloodflow testing, reports testing showed his valves in veins don 't fully close. States right leg swells more than left , especially since MRSA 2008 ( had hole in his infante, spent 10 days in hospital in [place], then [place], still had wound and MRSA. Then treated at [facility] and was put on IV antibiotics. Doctor's say that injury killed a lot of his lymph system. States swelling worsens throughout day. Diagnosed with Grade 4 intraductal carcinama, acinar adenocarcinoma, and grade 5 acinar adenocarcinama, radical prostatectomy. Usually wears compression socks and lace up boots which mostly helps except top of foot. 2020 40- 50 lymph nodes removed abdomen . Has also worn toe cap. Uses donning wire frame. Also has a TENS mat. Prior Treatments and Tests has worn compression stockings and toe caps 20-30 mm Hg knee high PT-OP-C Subjective Start: 06/26/24 08:02 Freq: Status: Active Protocol: Document 07/19/24 08:15 SAK (Rec: 07/19/24 08:46 SAK [id number]) OP-PT Subjective Patient Comments Patient Comments Patient reports unable to wear compression Tuesday and Tuesday due to reaction from 5 vaccinations. Increased swelling noted. Was able to wear yesterday. Going to see [facility] tomorrow. PT-OP-F Manual Assessment Start: 06/26/24 08:02 Freq: Status: Active Protocol: Document 06/26/24 08:13 SAK (Rec: 06/26/24 10:21 [facility] [id number]) Manual Assessments Soft Tissue Assessment Soft Tissue Mobility Assessment no fibrosis evident, no warmth or redness PT-OP-H Neuro Start: 06/26/24 08:02 Freq: Status: Active Protocol: Document 06/26/24 08:13 SAK (Rec: 06/26/24 10:21 SAK [id number]) Sensation Evaluation Gross Sensation Gross Sensation WNL PT-OP-J Posture/Palpation/Skin Start: 06/26/24 08:02 Freq: Status: Active Protocol: Document 06/26/24 08:13 SAK (Rec: 06/26/24 10:21 SAK [id number]) Palpation Assessment Location yair LE's Palpation Findings Edema Palpation Details no increased warmth or redness Skin Assessment Edema Assessment yair LE's Edema Type Pitting Edema Degree 4+ Edema Appearance Puffy,Taut Subjective Edema Description Tightness Comments lymphedema right greater than left Other Assessments Skin Assessment Comments intact, no open sores, no weeping PT-OP-K Range of Motion Start: 06/26/24 08:02 Freq: Status: Active Protocol: Document 06/26/24 08:13 SAK (Rec: 06/26/24 10:21 [facility] [id number]) Hip Goniometric Range of Motion Hip yair Hip ROM WFL Yes Knee Goniometric Range of Motion Knee yair Knee ROM WFL Yes Ankle and Foot Goniometric Range of Motion Ankle and Foot yair Comments mild decrease due to edema right greater than left PT-OP-L Special Tests Start: 06/26/24 08:02 Freq: Status: Active Protocol: Document 06/26/24 08:13 SAK (Rec: 06/26/24 10:21 [facility] [id number]) Special Tests Foot/Ankle Special Tests stemmer Test Results positive yair Comments for lymphedema PT-OP-N Lymphedema Start: 06/26/24 08:02 Freq: Status: Active Protocol: Document 07/19/24 08:15 SAK (Rec: 07/19/24 08:46 SAK [id number]) Lymphedema Measurements Lower Extremity Circumference Measurements Right Affected MT Heads 27 cm Mid-foot 25.2 cm Medial Malleolus 30.2 cm 10 cm From Medial Malleolus 25.2 cm 20 cm From Medial Malleolus 34.4 cm 30 cm From Medial Malleolus 35.2 cm 40 cm From Medial Malleolus 39.7 cm 50 cm From Medial Malleolus 42.6 cm 60 cm From Medial Malleolus 47.5 cm 70 cm From Medial Malleolus 56.4 cm Knee Joint 41.5 cm Left Affected MT Heads 26.9 cm Mid-foot 24.6 cm Medial Malleolus 28.2 cm 10 cm From Medial Malleolus 26 cm 20 cm From Medial Malleolus 34.8 cm 30 cm From Medial Malleolus 35.3 cm 40 cm From Medial Malleolus 38.6 cm 50 cm From Medial Malleolus 41.4 cm 60 cm From Medial Malleolus 45 cm 70 cm From Medial Malleolus 53.1 cm Knee Joint 40.7 cm PT-OP-Q Treatments Start: 06/26/24 08:02 Freq: Status: Active Protocol: Document 07/19/24 08:15 [facility] (Rec: 07/19/24 08:46 [facility] [id number]) Lymphedema Treatment Manual Lymphatic Drainage Location right LE Duration 15 Comments with patient education regarding technique Lymphedema Wrapping Body Location right LE Materials No bandaging due to patient reported difficulty including unstable angina with exertion, prefers to wear layered compression stockings, just got Circ-Aid toe cap for right LE as well with good fit. Wearing 20-30 mm Hg thigh high , topped with 20-30 mm Hg knee high plus toe cap right with good tolerance and fit. Sequential Lymphedema Exercises Location reviewed ROM ex all LE joints, trunk, deep breathing to facil lymphatic chela Compression Garment Assessment Compression Garment Assessment Details good fit of all as above but recommend 30-40 mm Hg thigh high compression stockings plus toe cap right; consider open toe on right. Patient using wire cage donning device . Patient to go to [facility] tomorrow. PT-OP-T Assessment and Plan Start: 06/26/24 08:02 Freq: Status: Active Protocol: Document 07/19/24 08:15 [facility] (Rec: 07/19/24 08:46 [facility] [id number]) Physical Therapy Assessment Goals Two Impairment lymphedema life impact scale 17% [facility] Goal (LTG) Decrease lymphedema life impact scale to no greater than 7% as measure of improved lymphedema and ability to self manage LTG Duration 09/25/24 One Impairment lymphedema yair LE's right greater than left Short Term Goal (STG) Patient will be instructed in all aspects of lymphedema self -care to include skin care, elevation, self-massage, self- bandaging/compression options, and lymphedema exercises. 07/09/24: goal met STG Duration goal met Efficiency Analyst Goal (LTG) Decrease patient?s lymphedema to a stable level (no increase or decrease greater than 1 cm over the course of 1 week), patient to be independent with all aspects of self-care for lymphedema, and will obtain appropriate compression garment for lymphedema management in the home. LTG Duration 09/25/24 Assessment Summary Assessment increased circumferential measurements on right especiallydistally, decreased on left. Compliance to wearing compression emphasized . Patient to go to [facility] for consult regarding garments tomorrow. Physical Therapy Plan Frequency and Duration Frequency of Treatment 20 Duration of treatment (weeks) 12 Plan of Care Start Date 06/26/24 Plan of Care End Date 09/25/24 Therapeutic Interventions Therapeutic Interventions Home Exercise Program, Lymphedema Management,Manual Therapy,Patient/Caregiver Education,Self-Care/Home Management,Soft Tissue Mobilization,Taping, Therapeutic Activities, Therapeutic Exercises Modalities Vasopneumatic Devices Next Visit Focus/Plan Next Note Type Treatment Note Next Visit Plan Continue CDT, assure good fit of compression garments, then anticipate discharge from PT to self care.
--- NOTE | 2024-07-26 08:53 | PT.OTN ---
Current Diagnoses Lymphedema, not elsewhere classified (07/26/24) Physical Therapy Treatment Note PT-OP-A Visit Information Start: 06/26/24 08:02 Freq: Status: Active Protocol: Document 07/26/24 08:14 SAK (Rec: 07/26/24 08:53 SAK [id number]) Out-Patient Physical Therapy Visit Information Visit Information Visit Type Treatment Note Visit Start Time 08:15 Visit Number 6 Evaluation Information Evaluation Date 06/26/24 Precautions Precautions prostate CA, history 40-50 lymph nodes removed PT-OP-B Current Condition Start: 06/26/24 08:02 Freq: Status: Active Protocol: Document 07/26/24 08:14 SAK (Rec: 07/26/24 08:53 SAK [id number]) Current Condition History of Current Condition Onset Date lifetime Current Complaints lifetime swelling lower legs History of Current Condition late went for bloodflow testing, reports testing showed his valves in veins don 't fully close. States right leg swells more than left , especially since MRSA 2008 ( had hole in his infante, spent 10 days in hospital in [place], then [place], still had wound and MRSA. Then treated at [facility] and was put on IV antibiotics. Doctor's say that injury killed a lot of his lymph system. States swelling worsens throughout day. Diagnosed with Grade 4 intraductal carcinama, acinar adenocarcinoma, and grade 5 acinar adenocarcinama, radical prostatectomy. Usually wears compression socks and lace up boots which mostly helps except top of foot. 2020 40- 50 lymph nodes removed abdomen . Has also worn toe cap. Uses donning wire frame. Also has a TENS mat. Prior Treatments and Tests has worn compression stockings and toe caps 20-30 mm Hg knee high PT-OP-C Subjective Start: 06/26/24 08:02 Freq: Status: Active Protocol: Document 07/26/24 08:14 SAK (Rec: 07/26/24 08:53 SAK [id number]) OP-PT Subjective Patient Comments Patient Comments Reporting may want to do PT for his balance after finishes for lymphedema. PT-OP-F Manual Assessment Start: 06/26/24 08:02 Freq: Status: Active Protocol: Document 06/26/24 08:13 SAK (Rec: 06/26/24 10:21 SAK [id number]) Manual Assessments Soft Tissue Assessment Soft Tissue Mobility Assessment no fibrosis evident, no warmth or redness PT-OP-H Neuro Start: 06/26/24 08:02 Freq: Status: Active Protocol: Document 06/26/24 08:13 SAK (Rec: 06/26/24 10:21 SAK [id number]) Sensation Evaluation Gross Sensation Gross Sensation WNL PT-OP-J Posture/Palpation/Skin Start: 06/26/24 08:02 Freq: Status: Active Protocol: Document 06/26/24 08:13 SAK (Rec: 06/26/24 10:21 SAK [id number]) Palpation Assessment Location yair LE's Palpation Findings Edema Palpation Details no increased warmth or redness Skin Assessment Edema Assessment yair LE's Edema Type Pitting Edema Degree 4+ Edema Appearance Puffy,Taut Subjective Edema Description Tightness Comments lymphedema right greater than left Other Assessments Skin Assessment Comments intact, no open sores, no weeping PT-OP-K Range of Motion Start: 06/26/24 08:02 Freq: Status: Active Protocol: Document 06/26/24 08:13 SAK (Rec: 06/26/24 10:21 SAK [id number]) Hip Goniometric Range of Motion Hip yair Hip ROM WFL Yes Knee Goniometric Range of Motion Knee yair Knee ROM WFL Yes Ankle and Foot Goniometric Range of Motion Ankle and Foot yair Comments mild decrease due to edema right greater than left PT-OP-L Special Tests Start: 06/26/24 08:02 Freq: Status: Active Protocol: Document 06/26/24 08:13 SAK (Rec: 06/26/24 10:21 [facility] [id number]) Special Tests Foot/Ankle Special Tests stemmer Test Results positive yair Comments for lymphedema PT-OP-N Lymphedema Start: 06/26/24 08:02 Freq: Status: Active Protocol: Document 07/26/24 08:14 SAK (Rec: 07/26/24 08:53 SAK [id number]) Lymphedema Measurements Lower Extremity Circumference Measurements Right Affected MT Heads 26.2 cm Mid-foot 24.8 cm Medial Malleolus 29.3 cm 10 cm From Medial Malleolus 24.6 cm 20 cm From Medial Malleolus 33.8 cm 30 cm From Medial Malleolus 34.4 cm 40 cm From Medial Malleolus 39.2 cm 50 cm From Medial Malleolus 42.6 cm 60 cm From Medial Malleolus 46.9 cm 70 cm From Medial Malleolus 57.7 cm Knee Joint 40.7 cm Left Affected MT Heads 26.3 cm Mid-foot 24.7 cm Medial Malleolus 27.8 cm 10 cm From Medial Malleolus 25.2 cm 20 cm From Medial Malleolus 34.4 cm 30 cm From Medial Malleolus 34.8 cm 40 cm From Medial Malleolus 38.5 cm 50 cm From Medial Malleolus 42 cm 60 cm From Medial Malleolus 46 cm 70 cm From Medial Malleolus 55 cm Knee Joint 40.8 cm PT-OP-Q Treatments Start: 06/26/24 08:02 Freq: Status: Active Protocol: Document 07/26/24 08:14 [facility] (Rec: 07/26/24 08:53 [facility] [id number]) Cardio Equipment Recumbent Stepper (Sci-Fit) Duration (Minutes) 10 Resistance 3-5 Seat Position 14 Lymphedema Treatment Manual Lymphatic Drainage Location right LE Duration 15 Comments with patient education regarding technique Lymphedema Wrapping Body Location right LE Materials No bandaging due to patient reported difficulty including unstable angina with exertion, prefers to wear layered compression stockings, just got Circ-Aid toe cap for right LE as well with good fit. Wearing 20-30 mm Hg thigh high , topped with 20-30 mm Hg knee high plus toe cap right with good tolerance and fit. Sequential Lymphedema Exercises Location reviewed ROM ex all LE joints, trunk, deep breathing to facil lymphatic chela Compression Garment Assessment Compression Garment Assessment Details good fit of all as above but recommend 30-40 mm Hg thigh high compression stockings plus toe cap right; consider open toe on right. Patient using wire cage donning device . Patient to go to [facility] tomorrow. PT-OP-T Assessment and Plan Start: 06/26/24 08:02 Freq: Status: Active Protocol: Document 07/26/24 08:14 [facility] (Rec: 07/26/24 08:53 [facility] [id number]) Physical Therapy Assessment Goals Two Impairment lymphedema life impact scale 17% [facility] Goal (LTG) Decrease lymphedema life impact scale to no greater than 7% as measure of improved lymphedema and ability to self manage 07/26/24: good goal progress LTG Duration 09/25/24 One Impairment lymphedema yair LE's right greater than left Short Term Goal (STG) Patient will be instructed in all aspects of lymphedema self -care to include skin care, elevation, self-massage, self- bandaging/compression options, and lymphedema exercises. 07/09/24: goal met STG Duration goal met [employer]eder Goal (LTG) Decrease patient?s lymphedema to a stable level (no increase or decrease greater than 1 cm over the course of 1 week), patient to be independent with all aspects of self-care for lymphedema, and will obtain appropriate compression garment for lymphedema management in the home. 07/26/24: good goal progress LTG Duration 09/25/24 Progress Towards Goals Progress Towards Goals Progressing Toward Goals Assessment Summary Assessment Started session with recumbant elliptical with patient wearig compression garments, notable decrease in circumferential measurements today, good feedback for patient regarding effect of exercise on lymphatic flow, encouraged to resume maintentance cardiac rehab. Physical Therapy Plan Frequency and Duration Frequency of Treatment 20 Duration of treatment (weeks) 12 Plan of Care Start Date 06/26/24 Plan of Care End Date 09/25/24 Therapeutic Interventions Therapeutic Interventions Home Exercise Program, Lymphedema Management,Manual Therapy,Patient/Caregiver Education,Self-Care/Home Management,Soft Tissue Mobilization,Taping, Therapeutic Activities, Therapeutic Exercises Modalities Vasopneumatic Devices Next Visit Focus/Plan Next Note Type Treatment Note Next Visit Plan Follow-up in 3-4 weeks to assure good fit of compression garments then anticipate discharge from PT to self care for lymphedema.
--- NOTE | 2024-09-03 11:50 | PT.OPDS ---
Current Diagnoses Lymphedema, not elsewhere classified (07/26/24) Visit Care Team Role Provider Type Juan Cummins MD Primary Care Provider Physician Specialty: Family Practice Address: [facility], [place], [address] Email: [email or web address] Antoni Berrios MD Family Provider Non-Staff Specialty: [facility] Practice Address: [address] [place] [address], [facility], [place], [address] Email: [email or web address] Pedro Sparks MD Attending Provider Non-Staff Referring Provider Specialty: Internal Medicine Address: [address] [place] [address], [address] [place] [address], [address] Email: Visit Number Visit Number 6 Discharge Summary PT-OP-B Current Condition Start: 06/26/24 08:02 Freq: Status: Active Protocol: Document 07/26/24 08:14 SAK (Rec: 07/26/24 08:53 SAK [id number]) Current Condition History of Current Condition Onset Date lifetime Current Complaints lifetime swelling lower legs History of Current Condition late went for bloodflow testing, reports testing showed his valves in veins don 't fully close. States right leg swells more than left , especially since MRSA 2008 ( had hole in his infante, spent 10 days in hospital in [place], then [place], still had wound and MRSA. Then treated at [facility] and was put on IV antibiotics. Doctor's say that injury killed a lot of his lymph system. States swelling worsens throughout day. Diagnosed with Grade 4 intraductal carcinama, acinar adenocarcinoma, and grade 5 acinar adenocarcinama, radical prostatectomy. Usually wears compression socks and lace up boots which mostly helps except top of foot. 2020 40- 50 lymph nodes removed abdomen . Has also worn toe cap. Uses donning wire frame. Also has a TENS mat. Prior Treatments and Tests has worn compression stockings and toe caps 20-30 mm Hg knee high PT-OP-C Subjective Start: 06/26/24 08:02 Freq: Status: Active Protocol: Document 07/26/24 08:14 SAK (Rec: 07/26/24 08:53 SAK [id number]) OP-PT Subjective Patient Comments Patient Comments Reporting may want to do PT for his balance after finishes for lymphedema. PT-OP-F Manual Assessment Start: 06/26/24 08:02 Freq: Status: Active Protocol: Document 06/26/24 08:13 SAK (Rec: 06/26/24 10:21 SAK [id number]) Manual Assessments Soft Tissue Assessment Soft Tissue Mobility Assessment no fibrosis evident, no warmth or redness PT-OP-H Neuro Start: 06/26/24 08:02 Freq: Status: Active Protocol: Document 06/26/24 08:13 SAK (Rec: 06/26/24 10:21 SAK [id number]) Sensation Evaluation Gross Sensation Gross Sensation WNL PT-OP-J Posture/Palpation/Skin Start: 06/26/24 08:02 Freq: Status: Active Protocol: Document 06/26/24 08:13 SAK (Rec: 06/26/24 10:21 SAK [id number]) Palpation Assessment Location yair LE's Palpation Findings Edema Palpation Details no increased warmth or redness Skin Assessment Edema Assessment yair LE's Edema Type Pitting Edema Degree 4+ Edema Appearance Puffy,Taut Subjective Edema Description Tightness Comments lymphedema right greater than left Other Assessments Skin Assessment Comments intact, no open sores, no weeping PT-OP-K Range of Motion Start: 06/26/24 08:02 Freq: Status: Active Protocol: Document 06/26/24 08:13 SAK (Rec: 06/26/24 10:21 SAK [id number]) Hip Goniometric Range of Motion Hip yair Hip ROM WFL Yes Knee Goniometric Range of Motion Knee yair Knee ROM WFL Yes Ankle and Foot Goniometric Range of Motion Ankle and Foot yair Comments mild decrease due to edema right greater than left PT-OP-L Special Tests Start: 06/26/24 08:02 Freq: Status: Active Protocol: Document 06/26/24 08:13 SAK (Rec: 06/26/24 10:21 SAK [id number]) Special Tests Foot/Ankle Special Tests stemmer Test Results positive yair Comments for lymphedema PT-OP-N Lymphedema Start: 06/26/24 08:02 Freq: Status: Active Protocol: Document 07/26/24 08:14 SAK (Rec: 07/26/24 08:53 [facility] [id number]) Lymphedema Measurements Lower Extremity Circumference Measurements Right Affected MT Heads 26.2 cm Mid-foot 24.8 cm Medial Malleolus 29.3 cm 10 cm From Medial Malleolus 24.6 cm 20 cm From Medial Malleolus 33.8 cm 30 cm From Medial Malleolus 34.4 cm 40 cm From Medial Malleolus 39.2 cm 50 cm From Medial Malleolus 42.6 cm 60 cm From Medial Malleolus 46.9 cm 70 cm From Medial Malleolus 57.7 cm Knee Joint 40.7 cm Left Affected MT Heads 26.3 cm Mid-foot 24.7 cm Medial Malleolus 27.8 cm 10 cm From Medial Malleolus 25.2 cm 20 cm From Medial Malleolus 34.4 cm 30 cm From Medial Malleolus 34.8 cm 40 cm From Medial Malleolus 38.5 cm 50 cm From Medial Malleolus 42 cm 60 cm From Medial Malleolus 46 cm 70 cm From Medial Malleolus 55 cm Knee Joint 40.8 cm PT-OP-T Assessment and Plan Start: 06/26/24 08:02 Freq: Status: Active Protocol: Document 09/03/24 11:48 [facility] (Rec: 09/03/24 11:50 [facility] [id number]) Physical Therapy Plan Discharge Physical Therapy Discharge Reasons Goals Met Discharge Comments Email from patient, responded to by PT. I?ve already spoken to [place] ( [employer]) by phone, but here are the essentials. First?. They all work, swelling is reduced. All fit like a second skin exhibiting the requisite difficulty donning and doffing as expected. Issues: Night wear garments are going to be a non-starter for me? But not because they don?t fit or are uncomfortable? something entirely different. The cancer drugs I take are hormonal? I am in a perpetual state of ?man-o-pause?? mood swings, hot flushes, night sweats and all. My coping strategy for sleep when a hot flush comes on is to first stick out one leg. Wearing shorts of course. Not enough cooling? Then two legs. Still hot, throw off all the covers and go back to sleep then wake again when I?m too cold and pull the covers back up. Wash, rinse, repeat?. So these garments are going on the shelf if and until the swelling gives me no choice but to use them. Then I?ll have to sleep in the freezer? The stockings and toe cap work as advertised? problem however is, my legs feel as if being strangled and motion is restricted, or at least requires greater effort making the stockings uncomfortable as I bend, squat and move about. I think that perhaps the selection of 30~40hg was overly aggressive. 20~30 may have been the better call. The commercially available 20~ 30 stockings I had, while tight, did not create the same issues and seemed to be somewhat effective.
== END 2024-09-05 14:39 | disposition home or self-care (01) ==
LOC: PHYS 08:15
PROVIDERS: Family Provider Family Medicine; PCP Family Medicine; Referring Provider Internal Medicine Cardiovascular Disease; Visit Provider Internal Medicine Cardiovascular Disease
DX: I89.0 Lymphedema, not elsewhere classified (principal)
CPT/HCPCS: 29581; 97110; 97140; 97162; 97535

== ENCOUNTER 2024-12-26 09:00 | Outpatient (RCR) | payer MEDICARE, OTHER, SELFPAY ==
--- NOTE | 2024-11-08 15:55 | PT.OIE ---
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 Address: [address] [place] [address], [address] Email: [email or web address] Thea Garrison MD Attending Provider Non-Staff Referring Provider Specialty: Physical Medicine and Rehab Address: [address] [place] [address] [address], [place], [address] Email: Physical Therapy Initial Evaluation PT-OP-A Visit Information Start: 11/08/24 07:28 Freq: Status: Active Protocol: Document 11/08/24 07:34 NM (Rec: 11/08/24 09:05 NM [id number]) Out-Patient Physical Therapy Visit Information Visit Information Visit Type Initial Evaluation Visit Note KX after 19 visits Visit Start Time 08:18 Visit Stop Time 09:04 Visit Number 1 Evaluation Information Evaluation Date 11/08/24 Precautions Precautions Hx active cancer, including metastatic cancer to bones, cardiac stents Monitor vitals PT-OP-B Current Condition Start: 11/08/24 07:28 Freq: Status: Active Protocol: Document 11/08/24 07:34 NM (Rec: 11/08/24 09:05 NM [id number]) Current Condition History of Current Condition History of Current Condition Pt sent by Dr. Garrison for cancer-rehab therapy due to osteoporosis, weakness. Pt on hormone therapy, decreasing muscle mass. Pt gets yearly injections of reclast. Pt dx with cancer 2020, stage 4 adenocarcinoma; pt takes his pills every day. Pt has been steadily decreasing his activity due to fatigue, weakness. Pt is concerned about build upper body strength, getting up off of the floor (competitive shooting), standing up without putting hands on his knees, BLE weakness, balance ( visually dependent), gait. PMH includes 3 stents (2022), high blood pressure, fracture to L arm and collar bone. No falls but several near falls ( e.g. tripping over dog in dark ). Pt reports that he had an MRI yesterday, reports that he has a dilated ascending aorta (states cardiology reports PT ok) but pt concerned about. Pt has mets to 7 areas, unsure where except R hip Treatment Goals Patient/Caregiver Goals wants to improve ability to transfer to/from floor, transfer to/from chair without UE support, increase BLE and BUE strength, improve balance PT-OP-C Subjective Start: 11/08/24 07:28 Freq: Status: Active Protocol: Document 11/08/24 07:34 NM (Rec: 11/08/24 09:05 NM [id number]) OP-PT Subjective Patient Comments Patient Comments Pt consents to participate in PT evaluation OP-PT Pain Assessment Location knees Pain Location Details entire knees Intensity 6 Scale Used Numeric (0 - 10) Description Aching Description- Other stiff Other Pain Aggravating Factors stairs, squats, transfers from floor Comments Pain Comments 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 R PT-OP-D Balance Start: 11/08/24 10:48 Freq: Status: Active Protocol: Document 11/08/24 07:34 NM (Rec: 11/08/24 10:52 NM [id number]) Balance Tests Other Other Balance Tests Performed FGA: , indicating increased risk of falls PT-OP-E Functional Tests Start: 11/08/24 07:28 Freq: Status: Active Protocol: Document 11/08/24 07:34 NM (Rec: 11/08/24 09:05 NM [id number]) Functional Tests Five Times Sit to Stand Test Score unable PT-OP-F Manual Assessment Start: 11/08/24 07:28 Freq: Status: Active Protocol: Document 11/08/24 07:34 NM (Rec: 11/08/24 09:05 NM [id number]) Manual Assessments Joint Mobility Assessment Joint Mobility Assessment Tragus-Wall Measurement: 20 cm PT-OP-G Mobility & Gait Start: 11/08/24 07:28 Freq: Status: Active Protocol: Document 11/08/24 07:34 NM (Rec: 11/08/24 09:05 NM [id number]) OP Gait Assessment Gait Gait Assistance Required: Standby Assistance Distance (Feet) 150 Assistive Devices Assistive Device None Comments Gait Comments Demos increased trunk sway, slower gait speed. Narrow RODRI, minimal trunk rotation. PT-OP-K Range of Motion Start: 11/08/24 07:28 Freq: Status: Active Protocol: Document 11/08/24 07:34 NM (Rec: 11/08/24 10:52 NM [id number]) Elbow/Forearm Range of Motion Elbow/Forearm Right Elbow Flexion (degrees) 145 Elbow Hyperextension 10 Left Elbow Flexion (degrees) 145 Elbow Hyperextension 10 Wrist Goniometric Range of Motion Wrist Right Flexion Active (degrees) 55 Extension Active (degrees) 60 Left Flexion Active (degrees) 50 Extension Active (degrees) 60 PT-OP-L Special Tests Start: 11/08/24 10:48 Freq: Status: Active Protocol: Document 11/08/24 07:34 NM (Rec: 11/08/24 10:52 NM [id number]) Special Tests Neural Special Tests- Upper Body Phalen's Test Results - Upper Limb Tension Test Test Results + Comments median, radial, ulnar- bilaterally Elbow Flexion Test Test Results + PT-OP-M Strength Start: 11/08/24 07:28 Freq: Status: Active Protocol: Document 11/08/24 07:34 NM (Rec: 11/08/24 09:05 NM [id number]) Trunk Strength Trunk Manual Muscle Testing Testing Position standing Flexion 3+ Fair+ Extension 3+ Fair+ Rotation Left 3+ Fair+ Rotation Right 3+ Fair+ Lateral Flexion Left 3+ Fair+ Lateral Flexion Right 3+ Fair+ Comments Challenging to stabilize against resistance Shoulder Strength Shoulder Manual Muscle Testing Right Flexion 4- Good- Abduction (C5) 4- Good- Left Flexion 4- Good- Abduction (C5) 4- Good- Elbow/Forearm Strength Elbow and Forearm Manual Muscle Testing Right Flexion (C6) 4- Good- Extension (C7) 4- Good- Left Flexion (C6) 4- Good- Extension (C7) 4- Good- Wrist Strength Wrist Manual Muscle Testing Right Flexion (C7) 4 Good Extension (C6) 4 Good Left Flexion (C7) 4 Good Extension (C6) 4 Good Hip Strength Hip Manual Muscle Testing Right Flexion (L2) 4- Good- Extension (S1) 4- Good- Abduction 4- Good- Adduction 4- Good- Comments tested in sitting Left Flexion (L2) 4- Good- Extension (S1) 4- Good- Abduction 4- Good- Adduction 4- Good- Knee Strength Knee Manual Muscle Testing Right Flexion (S2) 4- Good- Extension (L3) 4- Good- Left Flexion (S2) 4- Good- Extension (L3) 4- Good- PT-OP-T Assessment and Plan Start: 11/08/24 07:28 Freq: Status: Active Protocol: Document 11/08/24 07:34 NM (Rec: 11/08/24 09:05 NM [id number]) Physical Therapy Assessment Rehab Potential Rehabilitation Potential Fair Evaluation Complexity Number of Personal Factors/Comorbidities 3 or More Number of Body Systems Impaired 4 or More Clinical Presentation at Evaluation Evolving Impairments Impairments Activity Tolerance,Balance, Edema,Functional Activities, Functional Mobility,Gait, Integument,Pain,Posture,ROM, Sensation,Soft Tissue Mobility ,Strength,Transfers,Vestibular ,Visual Motor Other Concerns Fall Risk increased risk Age Related Concerns PMH: back pain, dizziness, hearing problems, heart disease, lymphedema, neuropathy, surgeries: appendectomy, tonsillectomy, distal gastric bypass, heart stents (5), radical prostatectomy Pt currently has active stage 4 adenocarcinoma since 2020 and is currently receiving treatment. He has osteoporosis per referral and metastatic cancer Medications: orgovyx, zytiga, prednisone, crestor, dilacor xr, imdur, eliquis, toprol xl, reclast Barriers to Rehabilitation Pt is currently undergoing treatment for stage 4 adenocarcinoma, which has metastasized to his bones (pt unsure which bones beyond R hip). He also was recently dx with a dilated ascending aorta , which is being monitored by cardiology. Pt also has osteoporosis as well. He enjoys recreational shooting, which involves getting up/down from lying on his stomach on the ground with spine rotated; pt does not plan to give up shooting following discussion with PT about spinal safety but agrees to speak with referring provider. Goals Four Impairment difficulty w/ STS transfers, needs UE assist; difficulty w/ floor transfers Short Term Goal (STG) If appropriate, pt will be able to demonstrate at least 5 transfers from chair without UE assist in order to demonstrate increased BLE strength during transfers STG Duration 6 weeks Three Impairment tragus-wall test 20 cm, hx of osteoporosis; hx shooting for recreation Fdc Goal (LTG) Pt will be educated on neutral spinal posture during ADLs/ exercise and recreational activities in order to improve spinal biomechanics and safety LTG Duration 8 weeks Two Impairment FGA 17/30, indicating increased risk of falls Short Term Goal (STG) Pt will be educated on fall risk reduction strategies due to hx of falls and near falls STG Duration 3 weeks Assistant Sales Manager Goal (LTG) If appropriate, pt will improve FGA to >22/30 to demonstrate decreased fall risk LTG Duration 8 weeks One Impairment not performing HEP or exercise program Short Term Goal (STG) Pt will be educated on energy conservation techniques STG Duration 3 weeks Fdc Goal (LTG) If appropriate, pt will be IND with HEP for carryover at home upon discharge LTG Duration 8 weeks Assessment Summary Assessment Pt is a 69 y.o. male with a complex medical history, including current stage 4 adenocarcinoma, osteoporosis, and metastatic disease. Pt is currently undergoing daily treatment for cancer. He is also being monitored by cardiology regarding his ascending aorta dilation and has hx of B ulnar neuropathy. Pt has impairments in strength , balance, gait, and activity tolerance. He demonstrates difficulty with sit to stand and floor transfers, requiring upper extremity assistance or heavily compensating due to weakness. Pt also demonstrates limitations in BLE and BUE strength, which impacts ability to perform ADLS/IADLs. Functional gait assessment score 17/30, indicating increased risk of falls, in addition to pt fall hx; however, further complicated by hx of dizziness and neuropathy. PT educated on exam findings and plan of care . Pt would benefit from skilled PT for strengthening, education, and body mechanics training in order to improve ability to perform transfers, decrease fall risk, and improve quality of life. Physical Therapy Plan Frequency and Duration Frequency of Treatment 2x/Week Duration of treatment (weeks) 8 Plan of Care Start Date 11/08/24 Plan of Care End Date 01/04/25 Therapeutic Interventions Therapeutic Interventions Balance Training,Canalithic Repositioning,Gait Training, Home Exercise Program,Manual Therapy,Neuromuscular Re- education,Orthotic/Prosthetic Management,Patient/Caregiver Education,Self-Care/Home Management,Sensory Integration ,Soft Tissue Mobilization, Taping,Therapeutic Activities, Therapeutic Exercises, Vestibular Rehabilitation Other Therapeutic Interventions no modalities or joint mobilizations due to cancer Next Visit Focus/Plan Next Note Type Treatment Note Next Visit Plan global strengthening elliptical/bike global strengthening: neutral spine core, pec stretch, gentle hip stretching, leg press, step ups. UE strengthening: lat pull down, biceps curls, tricep curls, raises Balance with respect to neuropathy- modified single leg and balance activities for safety
--- NOTE | 2024-11-09 15:33 | PT-OP ANOTE ---
PT called and left message for Dr. Garrison to ask for clinic notes or feedback regarding metastatic bone disease for pt in order to determine plan of care. Left office number and fax number
--- NOTE | 2024-11-13 09:18 | PT-OP ANOTE ---
Addendum entered and electronically signed by Marisa Montana, PT 11/13/24 09:51: Pt showed up 45 minutes late for his appt. PT had opening and can accommodate pt. Original Note: NO SHOW- PT called pt cell and left message informing him of missed visit this morning. Reminded pt of upcoming appt on 11/15 at 0945. PT also educated pt on now show policy per agreement signed at check in at evaluation. Pt informed that 2nd no show will lead to discharge from PT. Reminded pt of calling at least 24 hrs in advance to cancel if known.
--- NOTE | 2024-11-13 10:37 | PT.OTN ---
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) use of other agents affecting estrogen receptors and estrogen levels (11/13/24) Physical Therapy Treatment Note PT-OP-A Visit Information Start: 11/08/24 07:28 Freq: Status: Active Protocol: Document 11/13/24 09:53 NM (Rec: 11/13/24 10:37 NM [id number]) Out-Patient Physical Therapy Visit Information Visit Information Visit Type Treatment Note Visit Note KX after 19 visits Visit Start Time 09:53 Visit Stop Time 10:31 Visit Number 2 Evaluation Information Evaluation Date 11/08/24 Precautions Precautions Hx active cancer, including metastatic cancer to bones, cardiac stents, keeps nitroglyercin in L front pocket Monitor vitals PT-OP-B Current Condition Start: 11/08/24 07:28 Freq: Status: Active Protocol: Document 11/08/24 07:34 NM (Rec: 11/08/24 09:05 NM [id number]) Current Condition History of Current Condition History of Current Condition Pt sent by Dr. Garrison for cancer-rehab therapy due to osteoporosis, weakness. Pt on hormone therapy, decreasing muscle mass. Pt gets yearly injections of reclast. Pt dx with cancer 2020, stage 4 adenocarcinoma; pt takes his pills every day. Pt has been steadily decreasing his activity due to fatigue, weakness. Pt is concerned about build upper body strength, getting up off of the floor (competitive shooting), standing up without putting hands on his knees, BLE weakness, balance ( visually dependent), gait. PMH includes 3 stents (2022), high blood pressure, fracture to L arm and collar bone. No falls but several near falls ( e.g. tripping over dog in dark ). Pt reports that he had an MRI yesterday, reports that he has a dilated ascending aorta (states cardiology reports PT ok) but pt concerned about. Pt has mets to 7 areas, unsure where except R hip Treatment Goals Patient/Caregiver Goals wants to improve ability to transfer to/from floor, transfer to/from chair without UE support, increase BLE and BUE strength, improve balance PT-OP-C Subjective Start: 11/08/24 07:28 Freq: Status: Active Protocol: Document 11/13/24 09:53 NM (Rec: 11/13/24 10:37 NM [id number]) OP-PT Subjective Patient Comments Patient Comments Pt reports very tired today. No pain. No changes following evaluation on . PT-OP-D Balance Start: 11/08/24 10:48 Freq: Status: Active Protocol: Document 11/08/24 07:34 NM (Rec: 11/08/24 10:52 NM [id number]) Balance Tests Other Other Balance Tests Performed FGA: , indicating increased risk of falls PT-OP-E Functional Tests Start: 11/08/24 07:28 Freq: Status: Active Protocol: Document 11/08/24 07:34 NM (Rec: 11/08/24 09:05 NM [id number]) Functional Tests Five Times Sit to Stand Test Score unable PT-OP-F Manual Assessment Start: 11/08/24 07:28 Freq: Status: Active Protocol: Document 11/08/24 07:34 NM (Rec: 11/08/24 09:05 NM [id number]) Manual Assessments Joint Mobility Assessment Joint Mobility Assessment Tragus-Wall Measurement: 20 cm PT-OP-G Mobility & Gait Start: 11/08/24 07:28 Freq: Status: Active Protocol: Document 11/08/24 07:34 NM (Rec: 11/08/24 09:05 NM [id number]) OP Gait Assessment Gait Gait Assistance Required: Standby Assistance Distance (Feet) 150 Assistive Devices Assistive Device None Comments Gait Comments Demos increased trunk sway, slower gait speed. Narrow RODRI, minimal trunk rotation. PT-OP-K Range of Motion Start: 11/08/24 07:28 Freq: Status: Active Protocol: Document 11/08/24 07:34 NM (Rec: 11/08/24 10:52 NM [id number]) Elbow/Forearm Range of Motion Elbow/Forearm Right Elbow Flexion (degrees) 145 Elbow Hyperextension 10 Left Elbow Flexion (degrees) 145 Elbow Hyperextension 10 Wrist Goniometric Range of Motion Wrist Right Flexion Active (degrees) 55 Extension Active (degrees) 60 Left Flexion Active (degrees) 50 Extension Active (degrees) 60 PT-OP-L Special Tests Start: 11/08/24 10:48 Freq: Status: Active Protocol: Document 11/08/24 07:34 NM (Rec: 11/08/24 10:52 NM [id number]) Special Tests Neural Special Tests- Upper Body Phalen's Test Results - Upper Limb Tension Test Test Results + Comments median, radial, ulnar- bilaterally Elbow Flexion Test Test Results + PT-OP-M Strength Start: 11/08/24 07:28 Freq: Status: Active Protocol: Document 11/08/24 07:34 NM (Rec: 11/08/24 09:05 NM [id number]) Trunk Strength Trunk Manual Muscle Testing Testing Position standing Flexion 3+ Fair+ Extension 3+ Fair+ Rotation Left 3+ Fair+ Rotation Right 3+ Fair+ Lateral Flexion Left 3+ Fair+ Lateral Flexion Right 3+ Fair+ Comments Challenging to stabilize against resistance Shoulder Strength Shoulder Manual Muscle Testing Right Flexion 4- Good- Abduction (C5) 4- Good- Left Flexion 4- Good- Abduction (C5) 4- Good- Elbow/Forearm Strength Elbow and Forearm Manual Muscle Testing Right Flexion (C6) 4- Good- Extension (C7) 4- Good- Left Flexion (C6) 4- Good- Extension (C7) 4- Good- Wrist Strength Wrist Manual Muscle Testing Right Flexion (C7) 4 Good Extension (C6) 4 Good Left Flexion (C7) 4 Good Extension (C6) 4 Good Hip Strength Hip Manual Muscle Testing Right Flexion (L2) 4- Good- Extension (S1) 4- Good- Abduction 4- Good- Adduction 4- Good- Comments tested in sitting Left Flexion (L2) 4- Good- Extension (S1) 4- Good- Abduction 4- Good- Adduction 4- Good- Knee Strength Knee Manual Muscle Testing Right Flexion (S2) 4- Good- Extension (L3) 4- Good- Left Flexion (S2) 4- Good- Extension (L3) 4- Good- PT-OP-Q Treatments Start: 11/08/24 07:28 Freq: Status: Active Protocol: Document 11/13/24 09:53 NM (Rec: 11/13/24 10:37 NM [id number]) Cardio Equipment Recumbent Stepper (Sci-Fit) Duration (Minutes) 3 Resistance 5 Seat Position 13 Other cool down; LE only Therapeutic Exercises Supine Exercises bridge Side bilateral Reps/Minutes 15 Comments cued for ppt, partial ROM to protect spine TrA activation Supine Exercise Name 1. TrA, 2. pelvic tilts partial ROM, 3. BKFO Side bilateral Reps/Minutes 1. 10x1, 2. 5, 3. 8 ea Comments verbal and tactile cues Standing Exercises heel/toe raises Standing Exercise Name 1. heel raises, 2. toe raises Side bilateral Equipment Used B hand support at counter top Reps/Minutes 2x10 Comments cued for control to avoid wall squat Side bilateral Equipment Used back against wall to maintain neutral spine Reps/Minutes 2x10 Comments cued for form, set up; partial ROM; pain free Therapeutic Activity Therapeutic Activity diaphragmatic breathing Name HEP- HO provided Reps/Minutes 5 min Comments Education and rationale provided, in addition to handout. Pt performing with 1 hand on stomach and 1 on chest . body mechanics Reps/Minutes 5 min Comments Education and rationale on hip hinge and squat vs full trunk flexion to protect spine. Performed in sitting with self tactile cues at hips, with core bracing Education to avoid repeated spinal twisting log roll Name HEP- HO provided Reps/Minutes 5 minutes Comments Education and rationale. Performed to L. Cueing for block motion PT-OP-T Assessment and Plan Start: 11/08/24 07:28 Freq: Status: Active Protocol: Document 11/13/24 09:53 NM (Rec: 11/13/24 10:37 NM [id number]) Physical Therapy Assessment Goals Four Impairment difficulty w/ STS transfers, needs UE assist; difficulty w/ floor transfers Short Term Goal (STG) If appropriate, pt will be able to demonstrate at least 5 transfers from chair without UE assist in order to demonstrate increased BLE strength during transfers STG Duration 6 weeks Three Impairment tragus-wall test 20 cm, hx of osteoporosis; hx shooting for recreation Long-Term Goal (LTG) Pt will be educated on neutral spinal posture during ADLs/ exercise and recreational activities in order to improve spinal biomechanics and safety LTG Duration 8 weeks Two Impairment FGA 17/30, indicating increased risk of falls Short Term Goal (STG) Pt will be educated on fall risk reduction strategies due to hx of falls and near falls STG Duration 3 weeks Long-Term Goal (LTG) If appropriate, pt will improve FGA to >22/30 to demonstrate decreased fall risk LTG Duration 8 weeks One Impairment not performing HEP or exercise program Short Term Goal (STG) Pt will be educated on energy conservation techniques STG Duration 3 weeks Long-Term Goal (LTG) If appropriate, pt will be IND with HEP for carryover at home upon discharge LTG Duration 8 weeks Assessment Summary Assessment Pt tolerated session well. Extensive education provided on body mechanics for standing and bed mobility, and diaphragmatic breathing. Handouts provided for carryover at home. Increased cueing needed for safety as pt has tendency to flop or move quickly without regard for spinal mechanics. Initiated supine core bracing and gentle strengthening to promote neutral spine and begin increased core activation for carryover to future standing exercises. Moderate cueing needed for correct execution. Fatigues quickly with exercises but able to perform partial wall squats and ankle strengthening with minimal cues except for set up. Pt would continue to benefit from skilled PT for global strengthening and body mechanics education to improve safety and ability to participate in ADLs/IADLs. Physical Therapy Plan Frequency and Duration Frequency of Treatment 2x/Week Duration of treatment (weeks) 8 Plan of Care Start Date 11/08/24 Plan of Care End Date 01/04/25 Therapeutic Interventions Therapeutic Interventions Balance Training,Canalithic Repositioning,Gait Training, Home Exercise Program,Manual Therapy,Neuromuscular Re- education,Orthotic/Prosthetic Management,Patient/Caregiver Education,Self-Care/Home Management,Sensory Integration ,Soft Tissue Mobilization, Taping,Therapeutic Activities, Therapeutic Exercises, Vestibular Rehabilitation Other Therapeutic Interventions no modalities or joint mobilizations due to cancer Next Visit Focus/Plan Next Note Type Treatment Note Next Visit Plan global strengthening seated elliptical/recumbent bike for warm up/cool down global strengthening: neutral spine core in supine/sitting, pec stretch/calf stretch, gentle hip stretching, leg press, step ups. UE strengthening: lat pull down, biceps curls, tricep curls, raises, partial ROM wall push up. Do not load heavily Balance with respect to neuropathy- modified single leg and balance activities for safety
--- NOTE | 2024-11-15 10:43 | PT.OTN ---
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 affecting estrogen receptors and estrogen levels (11/15/24) Physical Therapy Treatment Note PT-OP-A Visit Information Start: 11/08/24 07:28 Freq: Status: Active Protocol: Document 11/15/24 09:01 AB (Rec: 11/15/24 10:43 AB [id number]) Out-Patient Physical Therapy Visit Information Visit Information Visit Type Treatment Note Visit Note KX after 19 visits Visit Start Time 09:48 Visit Stop Time 10:36 Visit Number 3 Number of WOOD POLISHER Visits 1 Evaluation Information Evaluation Date 11/08/24 Precautions Precautions Hx active cancer, including metastatic cancer to bones, cardiac stents, keeps nitroglyercin in L front pocket Monitor vitals PT-OP-B Current Condition Start: 11/08/24 07:28 Freq: Status: Active Protocol: Document 11/08/24 07:34 NM (Rec: 11/08/24 09:05 NM [id number]) Current Condition History of Current Condition History of Current Condition Pt sent by Dr. Garrison for cancer-rehab therapy due to osteoporosis, weakness. Pt on hormone therapy, decreasing muscle mass. Pt gets yearly injections of reclast. Pt dx with cancer 2020, stage 4 adenocarcinoma; pt takes his pills every day. Pt has been steadily decreasing his activity due to fatigue, weakness. Pt is concerned about build upper body strength, getting up off of the floor (competitive shooting), standing up without putting hands on his knees, BLE weakness, balance ( visually dependent), gait. PMH includes 3 stents (2022), high blood pressure, fracture to L arm and collar bone. No falls but several near falls ( e.g. tripping over dog in dark ). Pt reports that he had an MRI yesterday, reports that he has a dilated ascending aorta (states cardiology reports PT ok) but pt concerned about. Pt has mets to 7 areas, unsure where except R hip Treatment Goals Patient/Caregiver Goals wants to improve ability to transfer to/from floor, transfer to/from chair without UE support, increase BLE and BUE strength, improve balance PT-OP-C Subjective Start: 11/08/24 07:28 Freq: Status: Active Protocol: Document 11/15/24 09:01 AB (Rec: 11/15/24 10:43 AB [id number]) OP-PT Subjective Patient Comments Patient Comments Patient reports having no pain , comments he is the same. PT-OP-D Balance Start: 11/08/24 10:48 Freq: Status: Active Protocol: Document 11/08/24 07:34 NM (Rec: 11/08/24 10:52 NM [id number]) Balance Tests Other Other Balance Tests Performed FGA: , indicating increased risk of falls PT-OP-E Functional Tests Start: 11/08/24 07:28 Freq: Status: Active Protocol: Document 11/08/24 07:34 NM (Rec: 11/08/24 09:05 NM [id number]) Functional Tests Five Times Sit to Stand Test Score unable PT-OP-F Manual Assessment Start: 11/08/24 07:28 Freq: Status: Active Protocol: Document 11/08/24 07:34 NM (Rec: 11/08/24 09:05 NM [id number]) Manual Assessments Joint Mobility Assessment Joint Mobility Assessment Tragus-Wall Measurement: 20 cm PT-OP-G Mobility & Gait Start: 11/08/24 07:28 Freq: Status: Active Protocol: Document 11/08/24 07:34 NM (Rec: 11/08/24 09:05 NM [id number]) OP Gait Assessment Gait Gait Assistance Required: Standby Assistance Distance (Feet) 150 Assistive Devices Assistive Device None Comments Gait Comments Demos increased trunk sway, slower gait speed. Narrow RODRI, minimal trunk rotation. PT-OP-K Range of Motion Start: 11/08/24 07:28 Freq: Status: Active Protocol: Document 11/08/24 07:34 NM (Rec: 11/08/24 10:52 NM [id number]) Elbow/Forearm Range of Motion Elbow/Forearm Right Elbow Flexion (degrees) 145 Elbow Hyperextension 10 Left Elbow Flexion (degrees) 145 Elbow Hyperextension 10 Wrist Goniometric Range of Motion Wrist Right Flexion Active (degrees) 55 Extension Active (degrees) 60 Left Flexion Active (degrees) 50 Extension Active (degrees) 60 PT-OP-L Special Tests Start: 11/08/24 10:48 Freq: Status: Active Protocol: Document 11/08/24 07:34 NM (Rec: 11/08/24 10:52 NM [id number]) Special Tests Neural Special Tests- Upper Body Phalen's Test Results - Upper Limb Tension Test Test Results + Comments median, radial, ulnar- bilaterally Elbow Flexion Test Test Results + PT-OP-M Strength Start: 11/08/24 07:28 Freq: Status: Active Protocol: Document 11/08/24 07:34 NM (Rec: 11/08/24 09:05 NM [id number]) Trunk Strength Trunk Manual Muscle Testing Testing Position standing Flexion 3+ Fair+ Extension 3+ Fair+ Rotation Left 3+ Fair+ Rotation Right 3+ Fair+ Lateral Flexion Left 3+ Fair+ Lateral Flexion Right 3+ Fair+ Comments Challenging to stabilize against resistance Shoulder Strength Shoulder Manual Muscle Testing Right Flexion 4- Good- Abduction (C5) 4- Good- Left Flexion 4- Good- Abduction (C5) 4- Good- Elbow/Forearm Strength Elbow and Forearm Manual Muscle Testing Right Flexion (C6) 4- Good- Extension (C7) 4- Good- Left Flexion (C6) 4- Good- Extension (C7) 4- Good- Wrist Strength Wrist Manual Muscle Testing Right Flexion (C7) 4 Good Extension (C6) 4 Good Left Flexion (C7) 4 Good Extension (C6) 4 Good Hip Strength Hip Manual Muscle Testing Right Flexion (L2) 4- Good- Extension (S1) 4- Good- Abduction 4- Good- Adduction 4- Good- Comments tested in sitting Left Flexion (L2) 4- Good- Extension (S1) 4- Good- Abduction 4- Good- Adduction 4- Good- Knee Strength Knee Manual Muscle Testing Right Flexion (S2) 4- Good- Extension (L3) 4- Good- Left Flexion (S2) 4- Good- Extension (L3) 4- Good- PT-OP-Q Treatments Start: 11/08/24 07:28 Freq: Status: Active Protocol: Document 11/15/24 09:01 AB (Rec: 11/15/24 10:43 AB [id number]) Cardio Equipment Recumbent Stepper (Sci-Fit) Duration (Minutes) 6 Resistance 6 Seat Position 14 Other LE only Gym Equipment Shuttle Recovery bilateral Details 50#, 62# Reps/Time X15 X2 Shuttle Balance red Details normal RODRI, stagger Reps/Duration 4 min Comments CGA with head turns and visual scanning in normal RODRI Therapeutic Exercises Standing Exercises Patllof press Standing Exercise Name HEP Side bilateral Resistance level one band, level 2 band Reps/Minutes X15 each band each side Comments verbal and visual cues, monitored for pain. squats Standing Exercise Name squats with mat behind this session Side bilateral Reps/Minutes 2X10 Comments Verbal cues to squat, but not fully to mat. Therapeutic Activity Therapeutic Activity sit to stand Name with and without UE se Reps/Minutes X4 Comments Verbal cues for hip hinge, able to perform from 19 inch seat height w/o UE use, requires UE use for 17 inch seat height Neuro Re-Education Treatment Balance Activities Stagger stance Details on therapads eyes closed, head turns Comments CGA 3 min Romberg Details on and off foam with and without visual scanning and head turns. Comments CGA 2 min Self-Care/Home Management Treatment Education Other Education Discussed areas of bone met and advised to consider having assistive devices on hand, ie beginning to check out local areas with free/lending options. PT-OP-T Assessment and Plan Start: 11/08/24 07:28 Freq: Status: Active Protocol: Document 11/15/24 09:01 AB (Rec: 11/15/24 10:43 AB [id number]) Physical Therapy Assessment Rehab Potential Rehabilitation Potential Fair Evaluation Complexity Number of Personal Factors/Comorbidities 3 or More Number of Body Systems Impaired 4 or More Clinical Presentation at Evaluation Evolving Impairments Impairments Activity Tolerance,Balance, Edema,Functional Activities, Functional Mobility,Gait, Integument,Pain,Posture,ROM, Sensation,Soft Tissue Mobility ,Strength,Transfers,Vestibular ,Visual Motor Other Concerns Fall Risk increased risk Age Related Concerns PMH: back pain, dizziness, hearing problems, heart disease, lymphedema, neuropathy, surgeries: appendectomy, tonsillectomy, distal gastric bypass, heart stents (5), radical prostatectomy Pt currently has active stage 4 adenocarcinoma since 2020 and is currently receiving treatment. He has osteoporosis per referral and metastatic cancer Medications: orgovyx, zytiga, prednisone, crestor, dilacor xr, imdur, eliquis, toprol xl, reclast Barriers to Rehabilitation Pt is currently undergoing treatment for stage 4 adenocarcinoma, which has metastasized to his bones (pt unsure which bones beyond R hip). He also was recently dx with a dilated ascending aorta , which is being monitored by cardiology. Pt also has osteoporosis as well. He enjoys recreational shooting, which involves getting up/down from lying on his stomach on the ground with spine rotated; pt does not plan to give up shooting following discussion with PT about spinal safety but agrees to speak with referring provider. Goals Four Impairment difficulty w/ STS transfers, needs UE assist; difficulty w/ floor transfers Short Term Goal (STG) If appropriate, pt will be able to demonstrate at least 5 transfers from chair without UE assist in order to demonstrate increased BLE strength during transfers STG Duration 6 weeks Three Impairment tragus-wall test 20 cm, hx of osteoporosis; hx shooting for recreation Pillow Filler Goal (LTG) Pt will be educated on neutral spinal posture during ADLs/ exercise and recreational activities in order to improve spinal biomechanics and safety LTG Duration 8 weeks Two Impairment FGA 17/30, indicating increased risk of falls Short Term Goal (STG) Pt will be educated on fall risk reduction strategies due to hx of falls and near falls STG Duration 3 weeks Shelter Goal (LTG) If appropriate, pt will improve FGA to >22/30 to demonstrate decreased fall risk LTG Duration 8 weeks One Impairment not performing HEP or exercise program Short Term Goal (STG) Pt will be educated on energy conservation techniques STG Duration 3 weeks Shelter Goal (LTG) If appropriate, pt will be IND with HEP for carryover at home upon discharge LTG Duration 8 weeks Assessment Summary Assessment Patient tolerated session well , reports having no pain, some muscle soreness. Physical Therapy Plan Frequency and Duration Frequency of Treatment 2x/Week Duration of treatment (weeks) 8 Plan of Care Start Date 11/08/24 Plan of Care End Date 01/04/25 Next Visit Focus/Plan Next Note Type Treatment Note Next Visit Plan global strengthening seated elliptical/recumbent bike for warm up/cool down global strengthening: neutral spine core in supine/sitting, pec stretch/calf stretch, gentle hip stretching, leg press, step ups. UE strengthening: lat pull down, biceps curls, tricep curls, raises, partial ROM wall push up. Do not load heavily Balance with respect to neuropathy- modified single leg and balance activities for safety ( supine to sit with decreased velocity L and R side for HEP for core strength )
--- NOTE | 2024-11-20 10:38 | PT.OTN ---
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 affecting estrogen receptors and estrogen levels (11/20/24) Physical Therapy Treatment Note PT-OP-A Visit Information Start: 11/08/24 07:28 Freq: Status: Active Protocol: Document 11/20/24 08:08 AB (Rec: 11/20/24 10:38 AB [id number]) Out-Patient Physical Therapy Visit Information Visit Information Visit Type Treatment Note Visit Note KX after 19 visits Visit Start Time 09:48 Visit Stop Time 10:33 Visit Number 4 Number of RADIATION CONTROL WORKER Visits 2 Evaluation Information Evaluation Date 11/08/24 Precautions Precautions Hx active cancer, including metastatic cancer to bones, cardiac stents, keeps nitroglyercin in L front pocket Monitor vitals No core supine, no pelvic tilts PT-OP-B Current Condition Start: 11/08/24 07:28 Freq: Status: Active Protocol: Document 11/08/24 07:34 NM (Rec: 11/08/24 09:05 NM [id number]) Current Condition History of Current Condition History of Current Condition Pt sent by Dr. Garrison for cancer-rehab therapy due to osteoporosis, weakness. Pt on hormone therapy, decreasing muscle mass. Pt gets yearly injections of reclast. Pt dx with cancer 2020, stage 4 adenocarcinoma; pt takes his pills every day. Pt has been steadily decreasing his activity due to fatigue, weakness. Pt is concerned about build upper body strength, getting up off of the floor (competitive shooting), standing up without putting hands on his knees, BLE weakness, balance ( visually dependent), gait. PMH includes 3 stents (2022), high blood pressure, fracture to L arm and collar bone. No falls but several near falls ( e.g. tripping over dog in dark ). Pt reports that he had an MRI yesterday, reports that he has a dilated ascending aorta (states cardiology reports PT ok) but pt concerned about. Pt has mets to 7 areas, unsure where except R hip Treatment Goals Patient/Caregiver Goals wants to improve ability to transfer to/from floor, transfer to/from chair without UE support, increase BLE and BUE strength, improve balance PT-OP-C Subjective Start: 11/08/24 07:28 Freq: Status: Active Protocol: Document 11/20/24 08:08 AB (Rec: 11/20/24 10:38 AB [id number]) OP-PT Subjective Patient Comments Patient Comments Patient reports he is the same , had to work on son's truck, was under the truck working on it. Patient reports having no pain start of session. PT-OP-D Balance Start: 11/08/24 10:48 Freq: Status: Active Protocol: Document 11/08/24 07:34 NM (Rec: 11/08/24 10:52 NM [id number]) Balance Tests Other Other Balance Tests Performed FGA: , indicating increased risk of falls PT-OP-E Functional Tests Start: 11/08/24 07:28 Freq: Status: Active Protocol: Document 11/08/24 07:34 NM (Rec: 11/08/24 09:05 NM [id number]) Functional Tests Five Times Sit to Stand Test Score unable PT-OP-F Manual Assessment Start: 11/08/24 07:28 Freq: Status: Active Protocol: Document 11/08/24 07:34 NM (Rec: 11/08/24 09:05 NM [id number]) Manual Assessments Joint Mobility Assessment Joint Mobility Assessment Tragus-Wall Measurement: 20 cm PT-OP-G Mobility & Gait Start: 11/08/24 07:28 Freq: Status: Active Protocol: Document 11/08/24 07:34 NM (Rec: 11/08/24 09:05 NM [id number]) OP Gait Assessment Gait Gait Assistance Required: Standby Assistance Distance (Feet) 150 Assistive Devices Assistive Device None Comments Gait Comments Demos increased trunk sway, slower gait speed. Narrow RODRI, minimal trunk rotation. PT-OP-K Range of Motion Start: 11/08/24 07:28 Freq: Status: Active Protocol: Document 11/08/24 07:34 NM (Rec: 11/08/24 10:52 NM [id number]) Elbow/Forearm Range of Motion Elbow/Forearm Right Elbow Flexion (degrees) 145 Elbow Hyperextension 10 Left Elbow Flexion (degrees) 145 Elbow Hyperextension 10 Wrist Goniometric Range of Motion Wrist Right Flexion Active (degrees) 55 Extension Active (degrees) 60 Left Flexion Active (degrees) 50 Extension Active (degrees) 60 PT-OP-L Special Tests Start: 11/08/24 10:48 Freq: Status: Active Protocol: Document 11/08/24 07:34 NM (Rec: 11/08/24 10:52 NM [id number]) Special Tests Neural Special Tests- Upper Body Phalen's Test Results - Upper Limb Tension Test Test Results + Comments median, radial, ulnar- bilaterally Elbow Flexion Test Test Results + PT-OP-M Strength Start: 11/08/24 07:28 Freq: Status: Active Protocol: Document 11/08/24 07:34 NM (Rec: 11/08/24 09:05 NM [id number]) Trunk Strength Trunk Manual Muscle Testing Testing Position standing Flexion 3+ Fair+ Extension 3+ Fair+ Rotation Left 3+ Fair+ Rotation Right 3+ Fair+ Lateral Flexion Left 3+ Fair+ Lateral Flexion Right 3+ Fair+ Comments Challenging to stabilize against resistance Shoulder Strength Shoulder Manual Muscle Testing Right Flexion 4- Good- Abduction (C5) 4- Good- Left Flexion 4- Good- Abduction (C5) 4- Good- Elbow/Forearm Strength Elbow and Forearm Manual Muscle Testing Right Flexion (C6) 4- Good- Extension (C7) 4- Good- Left Flexion (C6) 4- Good- Extension (C7) 4- Good- Wrist Strength Wrist Manual Muscle Testing Right Flexion (C7) 4 Good Extension (C6) 4 Good Left Flexion (C7) 4 Good Extension (C6) 4 Good Hip Strength Hip Manual Muscle Testing Right Flexion (L2) 4- Good- Extension (S1) 4- Good- Abduction 4- Good- Adduction 4- Good- Comments tested in sitting Left Flexion (L2) 4- Good- Extension (S1) 4- Good- Abduction 4- Good- Adduction 4- Good- Knee Strength Knee Manual Muscle Testing Right Flexion (S2) 4- Good- Extension (L3) 4- Good- Left Flexion (S2) 4- Good- Extension (L3) 4- Good- PT-OP-Q Treatments Start: 11/08/24 07:28 Freq: Status: Active Protocol: Document 11/20/24 08:08 AB (Rec: 11/20/24 10:38 AB [id number]) Cardio Equipment Recumbent Stepper (Sci-Fit) Duration (Minutes) 6 Resistance 6 Seat Position 14 Other LE only BP seated post L UE 136/81 HR 66 BPM Gym Equipment Shuttle Recovery single LE Details R LE unable 37# 25# X 10 left and right LE Reps/Time X10 each LE at 25# bilateral Details 75# Reps/Time X15 Therapeutic Exercises Sitting Exercises pec stretch Side bilateral Reps/Minutes 40 sec reports feeling it shoulders, discontinued Standing Exercises Calf stretches Standing Exercise Name Soleus and gastroc on AMADOR Side bilateral Equipment Used HEP for block or wedge Reps/Minutes 60 sec X 2 each Comments verbal and visual cues high row Side bilateral Resistance level 3 [place] green band Equipment Used HEP Reps/Minutes 15 X 2 Comments Verbal and visuasl cues wall push up plus Standing Exercise Name hands in bessie position Side bilateral Equipment Used HEP Reps/Minutes X10 X 2 Comments verbal and visual cues for push up plus and to avoid too close to wall Patllof press Standing Exercise Name HEP Side bilateral Resistance level 3 band Reps/Minutes X15 each band each side Comments verbal and visual cues, monitored for pain. heel/toe raises Standing Exercise Name 1. heel raises, 2. toe raises Side bilateral Equipment Used B hand support at counter top Reps/Minutes 2x10 Comments cued for control to avoid Self-Care/Home Management Treatment Education Other Education Reviewed pain rules for Shuttle recovery, quad pain less than 24 hrs OK, pain greater than 24 hours or joint pain not OK weight needs to decrease. PT-OP-T Assessment and Plan Start: 11/08/24 07:28 Freq: Status: Active Protocol: Document 11/20/24 08:08 AB (Rec: 11/20/24 10:38 AB [id number]) Physical Therapy Assessment Goals Four Impairment difficulty w/ STS transfers, needs UE assist; difficulty w/ floor transfers Short Term Goal (STG) If appropriate, pt will be able to demonstrate at least 5 transfers from chair without UE assist in order to demonstrate increased BLE strength during transfers STG Duration 6 weeks Three Impairment tragus-wall test 20 cm, hx of osteoporosis; hx shooting for recreation Biztalk Developer Goal (LTG) Pt will be educated on neutral spinal posture during ADLs/ exercise and recreational activities in order to improve spinal biomechanics and safety LTG Duration 8 weeks Two Impairment FGA 17/30, indicating increased risk of falls Short Term Goal (STG) Pt will be educated on fall risk reduction strategies due to hx of falls and near falls STG Duration 3 weeks [facility] Goal (LTG) If appropriate, pt will improve FGA to >22/30 to demonstrate decreased fall risk LTG Duration 8 weeks One Impairment not performing HEP or exercise program Short Term Goal (STG) Pt will be educated on energy conservation techniques STG Duration 3 weeks Biztalk Developer Goal (LTG) If appropriate, pt will be IND with HEP for carryover at home upon discharge LTG Duration 8 weeks Assessment Summary Assessment Patient to session well, reports sensation in shoulders not pec with trial of pec stretch. Pain rules reviewed Physical Therapy Plan Frequency and Duration Frequency of Treatment 2x/Week Duration of treatment (weeks) 8 Plan of Care Start Date 11/08/24 Plan of Care End Date 01/04/25 Next Visit Focus/Plan Next Note Type Treatment Note Next Visit Plan global strengthening seated elliptical/recumbent bike for warm up/cool down global strengthening: neutral spine core in stretch/calf stretch, gentle hip stretching , leg press, step ups. 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
--- NOTE | 2024-11-22 11:02 | PT.OTN ---
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 affecting estrogen receptors and estrogen levels (11/22/24) Physical Therapy Treatment Note PT-OP-A Visit Information Start: 11/08/24 07:28 Freq: Status: Active Protocol: Document 11/22/24 08:59 NM (Rec: 11/22/24 09:46 NM [id number]) Out-Patient Physical Therapy Visit Information Visit Information Visit Type Treatment Note Visit Note KX after 19 visits L brachial: 127/84 mmHg, 97%, 64 bpm Visit Start Time 09:01 Visit Stop Time 09:43 Visit Number 5 Evaluation Information Evaluation Date 11/08/24 Precautions Precautions Hx active cancer, including metastatic cancer to bones, cardiac stents, keeps nitroglyercin in L front pocket Monitor vitals No core supine, no pelvic tilts PT-OP-B Current Condition Start: 11/08/24 07:28 Freq: Status: Active Protocol: Document 11/08/24 07:34 NM (Rec: 11/08/24 09:05 NM [id number]) Current Condition History of Current Condition History of Current Condition Pt sent by Dr. Garrison for cancer-rehab therapy due to osteoporosis, weakness. Pt on hormone therapy, decreasing muscle mass. Pt gets yearly injections of reclast. Pt dx with cancer 2020, stage 4 adenocarcinoma; pt takes his pills every day. Pt has been steadily decreasing his activity due to fatigue, weakness. Pt is concerned about build upper body strength, getting up off of the floor (competitive shooting), standing up without putting hands on his knees, BLE weakness, balance ( visually dependent), gait. PMH includes 3 stents (2022), high blood pressure, fracture to L arm and collar bone. No falls but several near falls ( e.g. tripping over dog in dark ). Pt reports that he had an MRI yesterday, reports that he has a dilated ascending aorta (states cardiology reports PT ok) but pt concerned about. Pt has mets to 7 areas, unsure where except R hip Treatment Goals Patient/Caregiver Goals wants to improve ability to transfer to/from floor, transfer to/from chair without UE support, increase BLE and BUE strength, improve balance PT-OP-C Subjective Start: 11/08/24 07:28 Freq: Status: Active Protocol: Document 11/22/24 08:59 NM (Rec: 11/22/24 09:46 NM [id number]) OP-PT Subjective Patient Comments Patient Comments Pt reports that he has been working on his son's truck indoors and outdoors this week since his son had B carpal tunnel surgery. He is getting up/down from ground, up/under truck. Has to use running boards on truck to rise, cardboard under body; having to use bolts with very high torque, used long torque wrench. States not enjoying the cold. PT-OP-D Balance Start: 11/08/24 10:48 Freq: Status: Active Protocol: Document 11/08/24 07:34 NM (Rec: 11/08/24 10:52 NM [id number]) Balance Tests Other Other Balance Tests Performed FGA: , indicating increased risk of falls PT-OP-E Functional Tests Start: 11/08/24 07:28 Freq: Status: Active Protocol: Document 11/08/24 07:34 NM (Rec: 11/08/24 09:05 NM [id number]) Functional Tests Five Times Sit to Stand Test Score unable PT-OP-F Manual Assessment Start: 11/08/24 07:28 Freq: Status: Active Protocol: Document 11/08/24 07:34 NM (Rec: 11/08/24 09:05 NM [id number]) Manual Assessments Joint Mobility Assessment Joint Mobility Assessment Tragus-Wall Measurement: 20 cm PT-OP-G Mobility & Gait Start: 11/08/24 07:28 Freq: Status: Active Protocol: Document 11/08/24 07:34 NM (Rec: 11/08/24 09:05 NM [id number]) OP Gait Assessment Gait Gait Assistance Required: Standby Assistance Distance (Feet) 150 Assistive Devices Assistive Device None Comments Gait Comments Demos increased trunk sway, slower gait speed. Narrow RODRI, minimal trunk rotation. PT-OP-K Range of Motion Start: 11/08/24 07:28 Freq: Status: Active Protocol: Document 11/08/24 07:34 NM (Rec: 11/08/24 10:52 NM [id number]) Elbow/Forearm Range of Motion Elbow/Forearm Right Elbow Flexion (degrees) 145 Elbow Hyperextension 10 Left Elbow Flexion (degrees) 145 Elbow Hyperextension 10 Wrist Goniometric Range of Motion Wrist Right Flexion Active (degrees) 55 Extension Active (degrees) 60 Left Flexion Active (degrees) 50 Extension Active (degrees) 60 PT-OP-L Special Tests Start: 11/08/24 10:48 Freq: Status: Active Protocol: Document 11/08/24 07:34 NM (Rec: 11/08/24 10:52 NM [id number]) Special Tests Neural Special Tests- Upper Body Phalen's Test Results - Upper Limb Tension Test Test Results + Comments median, radial, ulnar- bilaterally Elbow Flexion Test Test Results + PT-OP-M Strength Start: 11/08/24 07:28 Freq: Status: Active Protocol: Document 11/08/24 07:34 NM (Rec: 11/08/24 09:05 NM [id number]) Trunk Strength Trunk Manual Muscle Testing Testing Position standing Flexion 3+ Fair+ Extension 3+ Fair+ Rotation Left 3+ Fair+ Rotation Right 3+ Fair+ Lateral Flexion Left 3+ Fair+ Lateral Flexion Right 3+ Fair+ Comments Challenging to stabilize against resistance Shoulder Strength Shoulder Manual Muscle Testing Right Flexion 4- Good- Abduction (C5) 4- Good- Left Flexion 4- Good- Abduction (C5) 4- Good- Elbow/Forearm Strength Elbow and Forearm Manual Muscle Testing Right Flexion (C6) 4- Good- Extension (C7) 4- Good- Left Flexion (C6) 4- Good- Extension (C7) 4- Good- Wrist Strength Wrist Manual Muscle Testing Right Flexion (C7) 4 Good Extension (C6) 4 Good Left Flexion (C7) 4 Good Extension (C6) 4 Good Hip Strength Hip Manual Muscle Testing Right Flexion (L2) 4- Good- Extension (S1) 4- Good- Abduction 4- Good- Adduction 4- Good- Comments tested in sitting Left Flexion (L2) 4- Good- Extension (S1) 4- Good- Abduction 4- Good- Adduction 4- Good- Knee Strength Knee Manual Muscle Testing Right Flexion (S2) 4- Good- Extension (L3) 4- Good- Left Flexion (S2) 4- Good- Extension (L3) 4- Good- PT-OP-Q Treatments Start: 11/08/24 07:28 Freq: Status: Active Protocol: Document 11/22/24 08:59 NM (Rec: 11/22/24 09:46 NM [id number]) Cardio Equipment Recumbent Stepper (Sci-Fit) Duration (Minutes) 5 Resistance 7.5 Seat Position 13 Other warm up Therapeutic Exercises Sitting Exercises LAQ Side bilateral Resistance level 1 band > level 2 band Reps/Minutes 15x5 Comments starts to use chair to stabilize about 10 reps Standing Exercises hip extension Side bilateral Resistance level 2 band thighs Equipment Used B hands on rail for support Reps/Minutes 10 ea Comments cued tall posture, core brace, hip abduction Side bilateral Resistance level 2 band thighs Equipment Used 1 hand support for balance Reps/Minutes 2x10 ea Comments cued tall posture, neutral spine, no trunk lean, core brace heel/toe raises Standing Exercise Name 1. heel raises, 2. toe raises Side bilateral Resistance 2.2# tball Equipment Used 1 hand support on counter top Reps/Minutes 20 Comments cued more control w/ descent, less rocking Neuro Re-Education Treatment Balance Activities changing RODRI Details CGA Comments 1. tandem stance: 60 ea foot 2. tandem steppinx10 ft 3. heel steppinx10 ft 4. toe steppinx10 ft 5. retro steppinx10 ft foam Details ball toss Surface unstable Equipment kickball Reps/Duration 2 min Comments Standing on therapad. for reactive balance, postural control; CGA Self-Care/Home Management Treatment Education Patient Education Body Mechanics,Joint Protection,Safety Other Education 4 min- Education on safety, body mechanics as pt states will not stop working on son's truck until done. Educated to avoid excessive trunk flexion , rotation; education to move and reposition body as able, especially to maintain neutral spine. Recommended having son nearby, phone within reach as pt doing increased floor transfers. PT-OP-T Assessment and Plan Start: 11/08/24 07:28 Freq: Status: Active Protocol: Document 11/22/24 08:59 NM (Rec: 11/22/24 09:46 NM [id number]) Physical Therapy Assessment Goals Four Impairment difficulty w/ STS transfers, needs UE assist; difficulty w/ floor transfers Short Term Goal (STG) If appropriate, pt will be able to demonstrate at least 5 transfers from chair without UE assist in order to demonstrate increased BLE strength during transfers STG Duration 6 weeks Three Impairment tragus-wall test 20 cm, hx of osteoporosis; hx shooting for recreation [facility] Goal (LTG) Pt will be educated on neutral spinal posture during ADLs/ exercise and recreational activities in order to improve spinal biomechanics and safety LTG Duration 8 weeks Two Impairment FGA 17/30, indicating increased risk of falls Short Term Goal (STG) Pt will be educated on fall risk reduction strategies due to hx of falls and near falls STG Duration 3 weeks [facility] Goal (LTG) If appropriate, pt will improve FGA to >22/30 to demonstrate decreased fall risk LTG Duration 8 weeks One Impairment not performing HEP or exercise program Short Term Goal (STG) Pt will be educated on energy conservation techniques STG Duration 3 weeks Ostomy Rn Goal (LTG) If appropriate, pt will be IND with HEP for carryover at home upon discharge LTG Duration 8 weeks Assessment Summary Assessment Pt has no pain during session. Cueing needed for form and safety all exercises. Fatigues near 10th rep for exercises, needs periodic standing rest breaks. Continued with balance training, emphasis on changing RODRI and postural control. Narrow RODRI most challenging for pt; CGA needed for all. PT provided education for safety, body mechanics, and joint protection as pt working on son's car and diminishes PT education regarding pt safety. Pt would continue to benefit from skilled PT for progressive strengthening and balance training, in addition to neutral spine and body mechanics training in order to improve strength for ADLs/ IADLs. Physical Therapy Plan Frequency and Duration Frequency of Treatment 2x/Week Duration of treatment (weeks) 8 Plan of Care Start Date 11/08/24 Plan of Care End Date 01/04/25 Therapeutic Interventions Therapeutic Interventions Balance Training,Canalithic Repositioning,Gait Training, Home Exercise Program,Manual Therapy,Neuromuscular Re- education,Orthotic/Prosthetic Management,Patient/Caregiver Education,Self-Care/Home Management,Sensory Integration ,Soft Tissue Mobilization, Taping,Therapeutic Activities, Therapeutic Exercises, Vestibular Rehabilitation Other Therapeutic Interventions no modalities or joint mobilizations due to cancer Next Visit Focus/Plan Next Note Type Treatment Note Next Visit Plan global strengthening seated elliptical/recumbent bike for warm up/cool down global strengthening: neutral spine core in stretch/calf stretch, gentle hip stretching , leg press, step ups. 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
--- NOTE | 2024-11-27 15:58 | PT.OTN ---
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 receptors and estrogen levels (11/27/24) Physical Therapy Treatment Note PT-OP-A Visit Information Start: 11/08/24 07:28 Freq: Status: Active Protocol: Document 11/27/24 09:04 NM (Rec: 11/27/24 09:48 NM [id number]) Out-Patient Physical Therapy Visit Information Visit Information Visit Type Treatment Note Visit Note KX after 19 visits L brachial: 125/69 mmHg, 98%, 61 bpm @ start Visit Start Time 09:05 Visit Stop Time 09:45 Visit Number 6 Evaluation Information Evaluation Date 11/08/24 Precautions Precautions Hx active cancer, including metastatic cancer to bones, cardiac stents, keeps nitroglyercin in L front pocket Monitor vitals No core supine, no pelvic tilts *metastasis to: R 2nd lateral rib, sternal manubrium, sternal body, R 5th rib head, R pubic root, L ischial tuberosity, R iliac crest* PT-OP-B Current Condition Start: 11/08/24 07:28 Freq: Status: Active Protocol: Document 11/08/24 07:34 NM (Rec: 11/08/24 09:05 NM [id number]) Current Condition History of Current Condition History of Current Condition Pt sent by Dr. Garrison for cancer-rehab therapy due to osteoporosis, weakness. Pt on hormone therapy, decreasing muscle mass. Pt gets yearly injections of reclast. Pt dx with cancer 2020, stage 4 adenocarcinoma; pt takes his pills every day. Pt has been steadily decreasing his activity due to fatigue, weakness. Pt is concerned about build upper body strength, getting up off of the floor (competitive shooting), standing up without putting hands on his knees, BLE weakness, balance ( visually dependent), gait. PMH includes 3 stents (2022), high blood pressure, fracture to L arm and collar bone. No falls but several near falls ( e.g. tripping over dog in dark ). Pt reports that he had an MRI yesterday, reports that he has a dilated ascending aorta (states cardiology reports PT ok) but pt concerned about. Pt has mets to 7 areas, unsure where except R hip Treatment Goals Patient/Caregiver Goals wants to improve ability to transfer to/from floor, transfer to/from chair without UE support, increase BLE and BUE strength, improve balance PT-OP-C Subjective Start: 11/08/24 07:28 Freq: Status: Active Protocol: Document 11/27/24 09:04 NM (Rec: 11/27/24 09:48 NM [id number]) OP-PT Subjective Patient Comments Patient Comments Pt reports no changes from last session. Finished his son 's car. Pt reports that he felt ok after last session, he forgot to bring his papers. He reports that his hip joints form working on son's car are sore, denies pain. PT-OP-D Balance Start: 11/08/24 10:48 Freq: Status: Active Protocol: Document 11/08/24 07:34 NM (Rec: 11/08/24 10:52 NM [id number]) Balance Tests Other Other Balance Tests Performed FGA: , indicating increased risk of falls PT-OP-E Functional Tests Start: 11/08/24 07:28 Freq: Status: Active Protocol: Document 11/08/24 07:34 NM (Rec: 11/08/24 09:05 NM [id number]) Functional Tests Five Times Sit to Stand Test Score unable PT-OP-F Manual Assessment Start: 11/08/24 07:28 Freq: Status: Active Protocol: Document 11/08/24 07:34 NM (Rec: 11/08/24 09:05 NM [id number]) Manual Assessments Joint Mobility Assessment Joint Mobility Assessment Tragus-Wall Measurement: 20 cm PT-OP-G Mobility & Gait Start: 11/08/24 07:28 Freq: Status: Active Protocol: Document 11/08/24 07:34 NM (Rec: 11/08/24 09:05 NM [id number]) OP Gait Assessment Gait Gait Assistance Required: Standby Assistance Distance (Feet) 150 Assistive Devices Assistive Device None Comments Gait Comments Demos increased trunk sway, slower gait speed. Narrow RODRI, minimal trunk rotation. PT-OP-K Range of Motion Start: 11/08/24 07:28 Freq: Status: Active Protocol: Document 11/08/24 07:34 NM (Rec: 11/08/24 10:52 NM [id number]) Elbow/Forearm Range of Motion Elbow/Forearm Right Elbow Flexion (degrees) 145 Elbow Hyperextension 10 Left Elbow Flexion (degrees) 145 Elbow Hyperextension 10 Wrist Goniometric Range of Motion Wrist Right Flexion Active (degrees) 55 Extension Active (degrees) 60 Left Flexion Active (degrees) 50 Extension Active (degrees) 60 PT-OP-L Special Tests Start: 11/08/24 10:48 Freq: Status: Active Protocol: Document 11/08/24 07:34 NM (Rec: 11/08/24 10:52 NM [id number]) Special Tests Neural Special Tests- Upper Body Phalen's Test Results - Upper Limb Tension Test Test Results + Comments median, radial, ulnar- bilaterally Elbow Flexion Test Test Results + PT-OP-M Strength Start: 11/08/24 07:28 Freq: Status: Active Protocol: Document 11/08/24 07:34 NM (Rec: 11/08/24 09:05 NM [id number]) Trunk Strength Trunk Manual Muscle Testing Testing Position standing Flexion 3+ Fair+ Extension 3+ Fair+ Rotation Left 3+ Fair+ Rotation Right 3+ Fair+ Lateral Flexion Left 3+ Fair+ Lateral Flexion Right 3+ Fair+ Comments Challenging to stabilize against resistance Shoulder Strength Shoulder Manual Muscle Testing Right Flexion 4- Good- Abduction (C5) 4- Good- Left Flexion 4- Good- Abduction (C5) 4- Good- Elbow/Forearm Strength Elbow and Forearm Manual Muscle Testing Right Flexion (C6) 4- Good- Extension (C7) 4- Good- Left Flexion (C6) 4- Good- Extension (C7) 4- Good- Wrist Strength Wrist Manual Muscle Testing Right Flexion (C7) 4 Good Extension (C6) 4 Good Left Flexion (C7) 4 Good Extension (C6) 4 Good Hip Strength Hip Manual Muscle Testing Right Flexion (L2) 4- Good- Extension (S1) 4- Good- Abduction 4- Good- Adduction 4- Good- Comments tested in sitting Left Flexion (L2) 4- Good- Extension (S1) 4- Good- Abduction 4- Good- Adduction 4- Good- Knee Strength Knee Manual Muscle Testing Right Flexion (S2) 4- Good- Extension (L3) 4- Good- Left Flexion (S2) 4- Good- Extension (L3) 4- Good- PT-OP-Q Treatments Start: 11/08/24 07:28 Freq: Status: Active Protocol: Document 11/27/24 09:04 NM (Rec: 11/27/24 09:48 NM [id number]) Gym Equipment Shuttle Recovery bilateral Details breaks in between for vitals check: HR 33>61 bpm @75#, 68 bpm 2nd set Resistance 75# (3 teal) > 62# (2 teal) Reps/Time 10 ea resistance Shuttle Balance red Details a/p, m/l Reps/Duration 6 min Comments 1. normal RODRI 2. narrow RODRI 3. staggered CGA-Tiffany. m/l more challrnging Therapeutic Exercises Sitting Exercises LAQ Sitting Exercise Name cables- trialed Side bilateral Resistance level 2 cables Equipment Used performed individually, seat at 8th setting Reps/Minutes 10 ea Comments no pain; challenging Neuro Re-Education Treatment Balance Activities bosu Surface blue side up Equipment no UE support Comments 1. taps: non-alternating, alternating close SBA, good weight shifting; cueing for posture, core bracing to limit trunk extension compensation and ppt 2. lateral taps: non-alt changing RODRI Details CGA Reps/Duration 2x50 ft Comments carioca L side more challenging to coordinate than R side, significant reduction in speed . Cueing for tall posture, no trunk flexion, minimal trunk rotation except at hips. PT-OP-T Assessment and Plan Start: 11/08/24 07:28 Freq: Status: Active Protocol: Document 11/27/24 09:04 NM (Rec: 11/27/24 09:48 NM [id number]) Physical Therapy Assessment Goals Four Impairment difficulty w/ STS transfers, needs UE assist; difficulty w/ floor transfers Short Term Goal (STG) If appropriate, pt will be able to demonstrate at least 5 transfers from chair without UE assist in order to demonstrate increased BLE strength during transfers STG Duration 6 weeks Three Impairment tragus-wall test 20 cm, hx of osteoporosis; hx shooting for recreation Long-Term Goal (LTG) Pt will be educated on neutral spinal posture during ADLs/ exercise and recreational activities in order to improve spinal biomechanics and safety LTG Duration 8 weeks Two Impairment FGA 17/30, indicating increased risk of falls Short Term Goal (STG) Pt will be educated on fall risk reduction strategies due to hx of falls and near falls STG Duration 3 weeks General Accounting Clerk Goal (LTG) If appropriate, pt will improve FGA to >22/30 to demonstrate decreased fall risk LTG Duration 8 weeks One Impairment not performing HEP or exercise program Short Term Goal (STG) Pt will be educated on energy conservation techniques STG Duration 3 weeks Long-Term Goal (LTG) If appropriate, pt will be IND with HEP for carryover at home upon discharge LTG Duration 8 weeks Assessment Summary Assessment Pt has no pain during session but fatigues quickly. Initiated balance training on unstable surfaces with varying bases of support. L side more challenging than R side for maintaining balance during step taps and during carioca. Medial-lateral movements more challenging for pt. Needs seated rest breaks during session due to vitals monitoring for safety; with increased resistance, demos drop in heart rate; improved with rest and maintained at safer exercise levels at lower resistance. Physical Therapy Plan Frequency and Duration Frequency of Treatment 2x/Week Duration of treatment (weeks) 8 Plan of Care Start Date 11/08/24 Plan of Care End Date 01/04/25 Therapeutic Interventions Therapeutic Interventions Balance Training,Canalithic Repositioning,Gait Training, Home Exercise Program,Manual Therapy,Neuromuscular Re- education,Orthotic/Prosthetic Management,Patient/Caregiver Education,Self-Care/Home Management,Sensory Integration ,Soft Tissue Mobilization, Taping,Therapeutic Activities, Therapeutic Exercises, Vestibular Rehabilitation Other Therapeutic Interventions no modalities or joint mobilizations due to cancer Next Visit Focus/Plan Next Note Type Treatment Note Next Visit Plan global strengthening carioca. seated elliptical/ recumbent bike for warm up/ cool down global strengthening: neutral spine core in sitting- trial isometrics. stretch/calf stretch, leg press, step ups. 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
--- NOTE | 2024-11-29 10:45 | PT.OTN ---
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 and estrogen levels (11/29/24) Physical Therapy Treatment Note PT-OP-A Visit Information Start: 11/08/24 07:28 Freq: Status: Active Protocol: Document 11/29/24 09:03 NM (Rec: 11/29/24 10:45 NM [id number]) Out-Patient Physical Therapy Visit Information Visit Information Visit Type Treatment Note Visit Note KX after 19 visits L brachial: 137/80 mmHg, 98%, 73 bpm @ start Visit Start Time 09:06 Visit Stop Time 09:45 Visit Number 7 Evaluation Information Evaluation Date 11/08/24 Precautions Precautions Hx active cancer, including metastatic cancer to bones, cardiac stents, keeps nitroglyercin in L front pocket Monitor vitals No core supine, no pelvic tilts *metastasis to: R 2nd lateral rib, sternal manubrium, sternal body, R 5th rib head, R pubic root, L ischial tuberosity, R iliac crest* PT-OP-B Current Condition Start: 11/08/24 07:28 Freq: Status: Active Protocol: Document 11/08/24 07:34 NM (Rec: 11/08/24 09:05 NM [id number]) Current Condition History of Current Condition History of Current Condition Pt sent by Dr. Garrison for cancer-rehab therapy due to osteoporosis, weakness. Pt on hormone therapy, decreasing muscle mass. Pt gets yearly injections of reclast. Pt dx with cancer 2020, stage 4 adenocarcinoma; pt takes his pills every day. Pt has been steadily decreasing his activity due to fatigue, weakness. Pt is concerned about build upper body strength, getting up off of the floor (competitive shooting), standing up without putting hands on his knees, BLE weakness, balance ( visually dependent), gait. PMH includes 3 stents (2022), high blood pressure, fracture to L arm and collar bone. No falls but several near falls ( e.g. tripping over dog in dark ). Pt reports that he had an MRI yesterday, reports that he has a dilated ascending aorta (states cardiology reports PT ok) but pt concerned about. Pt has mets to 7 areas, unsure where except R hip Treatment Goals Patient/Caregiver Goals wants to improve ability to transfer to/from floor, transfer to/from chair without UE support, increase BLE and BUE strength, improve balance PT-OP-C Subjective Start: 11/08/24 07:28 Freq: Status: Active Protocol: Document 11/29/24 09:03 NM (Rec: 11/29/24 10:45 NM [id number]) OP-PT Subjective Patient Comments Patient Comments Pt reports had sinus headache yesterday, reports a little lightheaded this morning. He does not want to do balance activities today. No other pain or discomfort. 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 [employer] PT-OP-D Balance Start: 11/08/24 10:48 Freq: Status: Active Protocol: Document 11/08/24 07:34 NM (Rec: 11/08/24 10:52 NM [id number]) Balance Tests Other Other Balance Tests Performed FGA: , indicating increased risk of falls PT-OP-E Functional Tests Start: 11/08/24 07:28 Freq: Status: Active Protocol: Document 11/08/24 07:34 NM (Rec: 11/08/24 09:05 NM [id number]) Functional Tests Five Times Sit to Stand Test Score unable PT-OP-F Manual Assessment Start: 11/08/24 07:28 Freq: Status: Active Protocol: Document 11/08/24 07:34 NM (Rec: 11/08/24 09:05 NM [id number]) Manual Assessments Joint Mobility Assessment Joint Mobility Assessment Tragus-Wall Measurement: 20 cm PT-OP-G Mobility & Gait Start: 11/08/24 07:28 Freq: Status: Active Protocol: Document 11/08/24 07:34 NM (Rec: 11/08/24 09:05 NM [id number]) OP Gait Assessment Gait Gait Assistance Required: Standby Assistance Distance (Feet) 150 Assistive Devices Assistive Device None Comments Gait Comments Demos increased trunk sway, slower gait speed. Narrow RODRI, minimal trunk rotation. PT-OP-K Range of Motion Start: 11/08/24 07:28 Freq: Status: Active Protocol: Document 11/08/24 07:34 NM (Rec: 11/08/24 10:52 NM [id number]) Elbow/Forearm Range of Motion Elbow/Forearm Right Elbow Flexion (degrees) 145 Elbow Hyperextension 10 Left Elbow Flexion (degrees) 145 Elbow Hyperextension 10 Wrist Goniometric Range of Motion Wrist Right Flexion Active (degrees) 55 Extension Active (degrees) 60 Left Flexion Active (degrees) 50 Extension Active (degrees) 60 PT-OP-L Special Tests Start: 11/08/24 10:48 Freq: Status: Active Protocol: Document 11/08/24 07:34 NM (Rec: 11/08/24 10:52 NM [id number]) Special Tests Neural Special Tests- Upper Body Phalen's Test Results - Upper Limb Tension Test Test Results + Comments median, radial, ulnar- bilaterally Elbow Flexion Test Test Results + PT-OP-M Strength Start: 11/08/24 07:28 Freq: Status: Active Protocol: Document 11/08/24 07:34 NM (Rec: 11/08/24 09:05 NM [id number]) Trunk Strength Trunk Manual Muscle Testing Testing Position standing Flexion 3+ Fair+ Extension 3+ Fair+ Rotation Left 3+ Fair+ Rotation Right 3+ Fair+ Lateral Flexion Left 3+ Fair+ Lateral Flexion Right 3+ Fair+ Comments Challenging to stabilize against resistance Shoulder Strength Shoulder Manual Muscle Testing Right Flexion 4- Good- Abduction (C5) 4- Good- Left Flexion 4- Good- Abduction (C5) 4- Good- Elbow/Forearm Strength Elbow and Forearm Manual Muscle Testing Right Flexion (C6) 4- Good- Extension (C7) 4- Good- Left Flexion (C6) 4- Good- Extension (C7) 4- Good- Wrist Strength Wrist Manual Muscle Testing Right Flexion (C7) 4 Good Extension (C6) 4 Good Left Flexion (C7) 4 Good Extension (C6) 4 Good Hip Strength Hip Manual Muscle Testing Right Flexion (L2) 4- Good- Extension (S1) 4- Good- Abduction 4- Good- Adduction 4- Good- Comments tested in sitting Left Flexion (L2) 4- Good- Extension (S1) 4- Good- Abduction 4- Good- Adduction 4- Good- Knee Strength Knee Manual Muscle Testing Right Flexion (S2) 4- Good- Extension (L3) 4- Good- Left Flexion (S2) 4- Good- Extension (L3) 4- Good- PT-OP-Q Treatments Start: 11/08/24 07:28 Freq: Status: Active Protocol: Document 11/29/24 09:03 NM (Rec: 11/29/24 10:45 NM [id number]) Cardio Equipment Recumbent Stepper (Sci-Fit) Duration (Minutes) 6 Resistance 7.0 Seat Position 12 Other warm up: 3.0-4.0 METs; 60 bpm Therapeutic Exercises Sitting Exercises cervical retraction Sitting Exercise Name for posture Side bilateral Equipment Used seated in chair with back, pillow behind back for extension Reps/Minutes 20 Comments verbal and visual cues Standing Exercises high row Standing Exercise Name HEP review Side bilateral Resistance level 3 [place] green band > level 4 band Reps/Minutes 2x10 Comments cueing needed for scapular activation, alignment Therapeutic Activity Therapeutic Activity sit to stand Name increased time w/ activity due to seated rests for vitals post sets Comments 1. from elevated plinth, 8 pulse 74 bpm, 94% 2. from standard plinth, 8 pulse 75 bpm, 96% 3. from standard chair, 8 pulse 71 bpm, 8 Improved form, good hip hinge. Arms across chest. body mechanics Name lifting mechanics Comments 1. hip hinge @ wall 2. hip hinge to crate at waist level height Verbal and tactiles cues for hinge at hips, sligth scap retraction to prevent spine rounding, less trunk rocking PT-OP-T Assessment and Plan Start: 11/08/24 07:28 Freq: Status: Active Protocol: Document 11/29/24 09:03 NM (Rec: 11/29/24 10:45 NM [id number]) Physical Therapy Assessment Goals Four Impairment difficulty w/ STS transfers, needs UE assist; difficulty w/ floor transfers Short Term Goal (STG) If appropriate, pt will be able to demonstrate at least 5 transfers from chair without UE assist in order to demonstrate increased BLE strength during transfers STG Duration 6 weeks Three Impairment tragus-wall test 20 cm, hx of osteoporosis; hx shooting for recreation Senior Care Goal (LTG) Pt will be educated on neutral spinal posture during ADLs/ exercise and recreational activities in order to improve spinal biomechanics and safety LTG Duration 8 weeks Two Impairment FGA 17/30, indicating increased risk of falls Short Term Goal (STG) Pt will be educated on fall risk reduction strategies due to hx of falls and near falls STG Duration 3 weeks Senior Care Goal (LTG) If appropriate, pt will improve FGA to >22/30 to demonstrate decreased fall risk LTG Duration 8 weeks One Impairment not performing HEP or exercise program Short Term Goal (STG) Pt will be educated on energy conservation techniques STG Duration 3 weeks Senior Care Goal (LTG) If appropriate, pt will be IND with HEP for carryover at home upon discharge LTG Duration 8 weeks Assessment Summary Assessment Pt tolerated session well. Maintains safe exercise heart rate levels and spO2. Initiated postural re- education in sitting and body mechanics training for spinal safety. Cueing needed for form and to maintain neutral spine for all hip hinge activities, demos tendency for rounded trunk flexion. Improved STS from standard chair with hip hinge, challenging to carryover to standing. Cueing needed for posture and scapular activation during rows for correct carryover for HEP. Pt would benefit from skilled PT for progressive strengthening and body mechanics training in order to improve symptom management and safety during ADLs. Physical Therapy Plan Frequency and Duration Frequency of Treatment 2x/Week Duration of treatment (weeks) 8 Plan of Care Start Date 11/08/24 Plan of Care End Date 01/04/25 Therapeutic Interventions Therapeutic Interventions Balance Training,Canalithic Repositioning,Gait Training, Home Exercise Program,Manual Therapy,Neuromuscular Re- education,Orthotic/Prosthetic Management,Patient/Caregiver Education,Self-Care/Home Management,Sensory Integration ,Soft Tissue Mobilization, Taping,Therapeutic Activities, Therapeutic Exercises, Vestibular Rehabilitation Other Therapeutic Interventions no modalities or joint mobilizations due to cancer Next Visit Focus/Plan Next Note Type Treatment Note Next Visit Plan global strengthening carioca. seated elliptical/ recumbent bike for warm up/ cool down global strengthening: neutral spine core in sitting- trial isometrics. stretch/calf stretch, leg press, step ups. 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
--- NOTE | 2024-12-04 15:45 | PT.OTN ---
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 affecting estrogen receptors and estrogen levels (12/04/24) Physical Therapy Treatment Note PT-OP-A Visit Information Start: 11/08/24 07:28 Freq: Status: Active Protocol: Document 12/04/24 09:04 NM (Rec: 12/04/24 09:48 NM [id number]) Out-Patient Physical Therapy Visit Information Visit Information Visit Type Treatment Note Visit Note KX after 19 visits L brachial: 139/70 mmHg, 97%, 57 bpm @ start Visit Start Time 09:07 Visit Stop Time 09:45 Visit Number 8 Evaluation Information Evaluation Date 11/08/24 Precautions Precautions Hx active cancer, including metastatic cancer to bones, cardiac stents, keeps nitroglyercin in L front pocket Monitor vitals No core supine, no pelvic tilts *metastasis to: R 2nd lateral rib, sternal manubrium, sternal body, R 5th rib head, R pubic root, L ischial tuberosity, R iliac crest* PT-OP-B Current Condition Start: 11/08/24 07:28 Freq: Status: Active Protocol: Document 11/08/24 07:34 NM (Rec: 11/08/24 09:05 NM [id number]) Current Condition History of Current Condition History of Current Condition Pt sent by Dr. Garrison for cancer-rehab therapy due to osteoporosis, weakness. Pt on hormone therapy, decreasing muscle mass. Pt gets yearly injections of reclast. Pt dx with cancer 2020, stage 4 adenocarcinoma; pt takes his pills every day. Pt has been steadily decreasing his activity due to fatigue, weakness. Pt is concerned about build upper body strength, getting up off of the floor (competitive shooting), standing up without putting hands on his knees, BLE weakness, balance ( visually dependent), gait. PMH includes 3 stents (2022), high blood pressure, fracture to L arm and collar bone. No falls but several near falls ( e.g. tripping over dog in dark ). Pt reports that he had an MRI yesterday, reports that he has a dilated ascending aorta (states cardiology reports PT ok) but pt concerned about. Pt has mets to 7 areas, unsure where except R hip Treatment Goals Patient/Caregiver Goals wants to improve ability to transfer to/from floor, transfer to/from chair without UE support, increase BLE and BUE strength, improve balance PT-OP-C Subjective Start: 11/08/24 07:28 Freq: Status: Active Protocol: Document 12/04/24 09:04 NM (Rec: 12/04/24 09:48 NM [id number]) OP-PT Subjective Patient Comments Patient Comments Pt reports that he has no pain , no changes since last session. PT-OP-D Balance Start: 11/08/24 10:48 Freq: Status: Active Protocol: Document 11/08/24 07:34 NM (Rec: 11/08/24 10:52 NM [id number]) Balance Tests Other Other Balance Tests Performed FGA: , indicating increased risk of falls PT-OP-E Functional Tests Start: 11/08/24 07:28 Freq: Status: Active Protocol: Document 11/08/24 07:34 NM (Rec: 11/08/24 09:05 NM [id number]) Functional Tests Five Times Sit to Stand Test Score unable PT-OP-F Manual Assessment Start: 11/08/24 07:28 Freq: Status: Active Protocol: Document 11/08/24 07:34 NM (Rec: 11/08/24 09:05 NM [id number]) Manual Assessments Joint Mobility Assessment Joint Mobility Assessment Tragus-Wall Measurement: 20 cm PT-OP-G Mobility & Gait Start: 11/08/24 07:28 Freq: Status: Active Protocol: Document 11/08/24 07:34 NM (Rec: 11/08/24 09:05 NM [id number]) OP Gait Assessment Gait Gait Assistance Required: Standby Assistance Distance (Feet) 150 Assistive Devices Assistive Device None Comments Gait Comments Demos increased trunk sway, slower gait speed. Narrow RODRI, minimal trunk rotation. PT-OP-K Range of Motion Start: 11/08/24 07:28 Freq: Status: Active Protocol: Document 11/08/24 07:34 NM (Rec: 11/08/24 10:52 NM [id number]) Elbow/Forearm Range of Motion Elbow/Forearm Right Elbow Flexion (degrees) 145 Elbow Hyperextension 10 Left Elbow Flexion (degrees) 145 Elbow Hyperextension 10 Wrist Goniometric Range of Motion Wrist Right Flexion Active (degrees) 55 Extension Active (degrees) 60 Left Flexion Active (degrees) 50 Extension Active (degrees) 60 PT-OP-L Special Tests Start: 11/08/24 10:48 Freq: Status: Active Protocol: Document 11/08/24 07:34 NM (Rec: 11/08/24 10:52 NM [id number]) Special Tests Neural Special Tests- Upper Body Phalen's Test Results - Upper Limb Tension Test Test Results + Comments median, radial, ulnar- bilaterally Elbow Flexion Test Test Results + PT-OP-M Strength Start: 11/08/24 07:28 Freq: Status: Active Protocol: Document 11/08/24 07:34 NM (Rec: 11/08/24 09:05 NM [id number]) Trunk Strength Trunk Manual Muscle Testing Testing Position standing Flexion 3+ Fair+ Extension 3+ Fair+ Rotation Left 3+ Fair+ Rotation Right 3+ Fair+ Lateral Flexion Left 3+ Fair+ Lateral Flexion Right 3+ Fair+ Comments Challenging to stabilize against resistance Shoulder Strength Shoulder Manual Muscle Testing Right Flexion 4- Good- Abduction (C5) 4- Good- Left Flexion 4- Good- Abduction (C5) 4- Good- Elbow/Forearm Strength Elbow and Forearm Manual Muscle Testing Right Flexion (C6) 4- Good- Extension (C7) 4- Good- Left Flexion (C6) 4- Good- Extension (C7) 4- Good- Wrist Strength Wrist Manual Muscle Testing Right Flexion (C7) 4 Good Extension (C6) 4 Good Left Flexion (C7) 4 Good Extension (C6) 4 Good Hip Strength Hip Manual Muscle Testing Right Flexion (L2) 4- Good- Extension (S1) 4- Good- Abduction 4- Good- Adduction 4- Good- Comments tested in sitting Left Flexion (L2) 4- Good- Extension (S1) 4- Good- Abduction 4- Good- Adduction 4- Good- Knee Strength Knee Manual Muscle Testing Right Flexion (S2) 4- Good- Extension (L3) 4- Good- Left Flexion (S2) 4- Good- Extension (L3) 4- Good- PT-OP-Q Treatments Start: 11/08/24 07:28 Freq: Status: Active Protocol: Document 12/04/24 09:04 NM (Rec: 12/04/24 09:48 NM [id number]) Therapeutic Exercises Standing Exercises step up Standing Exercise Name 1. fwd > hip flexion , 2. lateral Side bilateral Equipment Used 1 finger support for december d/t balance Reps/Minutes 1. 15 ea (pulse 81 bpm, 97%), 2. 15 ea (pulse 99bpm, 96%) Comments cued wider RODRI for balance, postural alignment; no pain lunge Standing Exercise Name 1. fwd, 2. lateral Side bilateral Reps/Minutes 1. 2x10, 2. 10 ea (more challenging form) Comments cued posture, form, domi neutral foot position; pulse: 81,96% Calf stretches Standing Exercise Name 1. gastrocnemius, 2. soleus Side bilateral Equipment Used AMADOR Reps/Minutes 60 ea (feels appropriate stretch) Comments pt measures AMADOR, planning to make at home for HEP carryover Other Exercises quad stretch Other Exercise Name single leg Side bilateral Equipment Used 1 hand support Reps/Minutes 60 hamstring stretch Other Exercise Name 1. @ counter top, 2. seated HS stretch with hip hinge Side bilateral Reps/Minutes 1. 30, 2. 2x30 ea leg ( cueing for neutral spine) Comments first performed for pt correction of exercise, edu to avoid max trunk flex Self-Care/Home Management Treatment Education Patient Education Joint Protection,Posture Other Education Educated on neutral spine mechanics and avoiding maximal /quick end range flexion; educated on use of hip hinge mechanics PT-OP-T Assessment and Plan Start: 11/08/24 07:28 Freq: Status: Active Protocol: Document 12/04/24 09:04 NM (Rec: 12/04/24 09:48 NM [id number]) Physical Therapy Assessment Goals Four Impairment difficulty w/ STS transfers, needs UE assist; difficulty w/ floor transfers Short Term Goal (STG) If appropriate, pt will be able to demonstrate at least 5 transfers from chair without UE assist in order to demonstrate increased BLE strength during transfers STG Duration 6 weeks Three Impairment tragus-wall test 20 cm, hx of osteoporosis; hx shooting for recreation [facility] Goal (LTG) Pt will be educated on neutral spinal posture during ADLs/ exercise and recreational activities in order to improve spinal biomechanics and safety LTG Duration 8 weeks Two Impairment FGA 17/30, indicating increased risk of falls Short Term Goal (STG) Pt will be educated on fall risk reduction strategies due to hx of falls and near falls STG Duration 3 weeks Mcfp Goal (LTG) If appropriate, pt will improve FGA to >22/30 to demonstrate decreased fall risk LTG Duration 8 weeks One Impairment not performing HEP or exercise program Short Term Goal (STG) Pt will be educated on energy conservation techniques STG Duration 3 weeks Medical Territory Manager Goal (LTG) If appropriate, pt will be IND with HEP for carryover at home upon discharge LTG Duration 8 weeks Assessment Summary Assessment Pt has no pain during session, but does report some muscle soreness with lunges and step ups due to BLE weakness. Moderate cueing needed for correct execution, especially for postural alignment. Progressed to added hip flexion with step up and lateral step up; needs mild UE assist at rail for balance. Educated on safety during hamstring stretch, especially to limit maximal trunk flexion ; recommended seated stretch as opposed to counter top. Pt continues to need monitoring of vitals during session for safe exercises, no seated rest breaks today. Physical Therapy Plan Frequency and Duration Frequency of Treatment 2x/Week Duration of treatment (weeks) 8 Plan of Care Start Date 11/08/24 Plan of Care End Date 01/04/25 Therapeutic Interventions Therapeutic Interventions Balance Training,Canalithic Repositioning,Gait Training, Home Exercise Program,Manual Therapy,Neuromuscular Re- education,Orthotic/Prosthetic Management,Patient/Caregiver Education,Self-Care/Home Management,Sensory Integration ,Soft Tissue Mobilization, Taping,Therapeutic Activities, Therapeutic Exercises, Vestibular Rehabilitation Other Therapeutic Interventions no modalities or joint mobilizations due to cancer Next Visit Focus/Plan Next Note Type Progress Note Next Visit Plan global strengthening carioca. seated elliptical/ recumbent bike for warm up/ cool down global strengthening: neutral spine core in sitting- trial isometrics. stretch/calf stretch, leg press, step ups. 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
--- NOTE | 2024-12-06 10:41 | PT.OTN ---
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 affecting estrogen receptors and estrogen levels (12/06/24) Physical Therapy Treatment Note PT-OP-A Visit Information Start: 11/08/24 07:28 Freq: Status: Active Protocol: Document 12/06/24 09:03 NM (Rec: 12/06/24 09:49 NM [id number]) Out-Patient Physical Therapy Visit Information Visit Information Visit Type Progress Note Visit Note KX after 19 visits L brachial: 131/78 mmHg, 96%, 70 bpm; start of session Visit Start Time 09:04 Visit Stop Time 09:45 Visit Number 9 Evaluation Information Evaluation Date 11/08/24 Precautions Precautions Hx active cancer, including metastatic cancer to bones, cardiac stents, keeps nitroglyercin in L front pocket Monitor vitals No core supine, no pelvic tilts *metastasis to: R 2nd lateral rib, sternal manubrium, sternal body, R 5th rib head, R pubic root, L ischial tuberosity, R iliac crest* PT-OP-B Current Condition Start: 11/08/24 07:28 Freq: Status: Active Protocol: Document 11/08/24 07:34 NM (Rec: 11/08/24 09:05 NM [id number]) Current Condition History of Current Condition History of Current Condition Pt sent by Dr. Garrison for cancer-rehab therapy due to osteoporosis, weakness. Pt on hormone therapy, decreasing muscle mass. Pt gets yearly injections of reclast. Pt dx with cancer 2020, stage 4 adenocarcinoma; pt takes his pills every day. Pt has been steadily decreasing his activity due to fatigue, weakness. Pt is concerned about build upper body strength, getting up off of the floor (competitive shooting), standing up without putting hands on his knees, BLE weakness, balance ( visually dependent), gait. PMH includes 3 stents (2022), high blood pressure, fracture to L arm and collar bone. No falls but several near falls ( e.g. tripping over dog in dark ). Pt reports that he had an MRI yesterday, reports that he has a dilated ascending aorta (states cardiology reports PT ok) but pt concerned about. Pt has mets to 7 areas, unsure where except R hip Treatment Goals Patient/Caregiver Goals wants to improve ability to transfer to/from floor, transfer to/from chair without UE support, increase BLE and BUE strength, improve balance PT-OP-C Subjective Start: 11/08/24 07:28 Freq: Status: Active Protocol: Document 12/06/24 09:03 NM (Rec: 12/06/24 09:49 NM [id number]) OP-PT Subjective Patient Comments Patient Comments Pt reports no pain or changes since last session. Reports soreness after last session, especially in thighs and mid back. Pt thinks that mid back bothers him due to use of stud finder for 1 hour. Pt reports only doing some of HEP. PT-OP-D Balance Start: 11/08/24 10:48 Freq: Status: Active Protocol: Document 11/08/24 07:34 NM (Rec: 11/08/24 10:52 NM [id number]) Balance Tests Other Other Balance Tests Performed FGA: , indicating increased risk of falls PT-OP-E Functional Tests Start: 11/08/24 07:28 Freq: Status: Active Protocol: Document 11/08/24 07:34 NM (Rec: 11/08/24 09:05 NM [id number]) Functional Tests Five Times Sit to Stand Test Score unable PT-OP-F Manual Assessment Start: 11/08/24 07:28 Freq: Status: Active Protocol: Document 11/08/24 07:34 NM (Rec: 11/08/24 09:05 NM [id number]) Manual Assessments Joint Mobility Assessment Joint Mobility Assessment Tragus-Wall Measurement: 20 cm PT-OP-G Mobility & Gait Start: 11/08/24 07:28 Freq: Status: Active Protocol: Document 11/08/24 07:34 NM (Rec: 11/08/24 09:05 NM [id number]) OP Gait Assessment Gait Gait Assistance Required: Standby Assistance Distance (Feet) 150 Assistive Devices Assistive Device None Comments Gait Comments Demos increased trunk sway, slower gait speed. Narrow RODRI, minimal trunk rotation. PT-OP-K Range of Motion Start: 11/08/24 07:28 Freq: Status: Active Protocol: Document 11/08/24 07:34 NM (Rec: 11/08/24 10:52 NM [id number]) Elbow/Forearm Range of Motion Elbow/Forearm Right Elbow Flexion (degrees) 145 Elbow Hyperextension 10 Left Elbow Flexion (degrees) 145 Elbow Hyperextension 10 Wrist Goniometric Range of Motion Wrist Right Flexion Active (degrees) 55 Extension Active (degrees) 60 Left Flexion Active (degrees) 50 Extension Active (degrees) 60 PT-OP-L Special Tests Start: 11/08/24 10:48 Freq: Status: Active Protocol: Document 11/08/24 07:34 NM (Rec: 11/08/24 10:52 NM [id number]) Special Tests Neural Special Tests- Upper Body Phalen's Test Results - Upper Limb Tension Test Test Results + Comments median, radial, ulnar- bilaterally Elbow Flexion Test Test Results + PT-OP-M Strength Start: 11/08/24 07:28 Freq: Status: Active Protocol: Document 11/08/24 07:34 NM (Rec: 11/08/24 09:05 NM [id number]) Trunk Strength Trunk Manual Muscle Testing Testing Position standing Flexion 3+ Fair+ Extension 3+ Fair+ Rotation Left 3+ Fair+ Rotation Right 3+ Fair+ Lateral Flexion Left 3+ Fair+ Lateral Flexion Right 3+ Fair+ Comments Challenging to stabilize against resistance Shoulder Strength Shoulder Manual Muscle Testing Right Flexion 4- Good- Abduction (C5) 4- Good- Left Flexion 4- Good- Abduction (C5) 4- Good- Elbow/Forearm Strength Elbow and Forearm Manual Muscle Testing Right Flexion (C6) 4- Good- Extension (C7) 4- Good- Left Flexion (C6) 4- Good- Extension (C7) 4- Good- Wrist Strength Wrist Manual Muscle Testing Right Flexion (C7) 4 Good Extension (C6) 4 Good Left Flexion (C7) 4 Good Extension (C6) 4 Good Hip Strength Hip Manual Muscle Testing Right Flexion (L2) 4- Good- Extension (S1) 4- Good- Abduction 4- Good- Adduction 4- Good- Comments tested in sitting Left Flexion (L2) 4- Good- Extension (S1) 4- Good- Abduction 4- Good- Adduction 4- Good- Knee Strength Knee Manual Muscle Testing Right Flexion (S2) 4- Good- Extension (L3) 4- Good- Left Flexion (S2) 4- Good- Extension (L3) 4- Good- PT-OP-Q Treatments Start: 11/08/24 07:28 Freq: Status: Active Protocol: Document 12/06/24 09:03 NM (Rec: 12/06/24 09:49 NM [id number]) Therapeutic Exercises Sitting Exercises sit to stand Sitting Exercise Name HEP review Side bilateral Resistance level 2 band Equipment Used mesh chair Reps/Minutes 2x8 Comments 78 bpm after 1st set, 76 2nd set; no pain, quad fatigue cervical retraction Sitting Exercise Name for posture- HEP review Side bilateral Equipment Used seated in chair with back, pillow behind back for extension Reps/Minutes 10 Comments verbal and visual cues, limit Standing Exercises wall posture Standing Exercise Name 1. cervical retraction, 2. B ER Side bilateral Resistance level 1 band Equipment Used towel roll behind head Reps/Minutes 1. 10, 2. 10 c/ chin tuck Comments cued for form, less CS nod lunge Standing Exercise Name 1. fwd (HEP), 2. lateral Side bilateral Equipment Used slight assist for UE on bar to balance Reps/Minutes 1. 2x10 ea (quad fatigue), 2. 10 ea (more challenging, need cues hip hinge) Comments improved posture, 81 bpm; edu to use rail at home for balance Neuro Re-Education Treatment Balance Activities FGA Details 24/ Comments eyes closed, tandem most challenging, cueing needed for correct execution on pivot for hip safety foam Details close SBA Surface unstable Equipment hand near //bar if needed, no used Reps/Duration 8 min Comments 1. eyes closed 2. eyes closed c/ head turns 3. eyes closed c/ nods 4. step up and overs: fwd and retro 5. step up and overs: lateral PT-OP-T Assessment and Plan Start: 11/08/24 07:28 Freq: Status: Active Protocol: Document 12/06/24 09:03 NM (Rec: 12/06/24 09:49 NM [id number]) Physical Therapy Assessment Goals Four Impairment difficulty w/ STS transfers, needs UE assist; difficulty w/ floor transfers Short Term Goal (STG) If appropriate, pt will be able to demonstrate at least 5 transfers from chair without UE assist in order to demonstrate increased BLE strength during transfers 12/06/24: 8 STS from standard chair wthout UE assist, maintains good body mechanics, no pain STG Duration 6 weeks MET Three Impairment tragus-wall test 20 cm, hx of osteoporosis; hx shooting for recreation [facility] Goal (LTG) Pt will be educated on neutral spinal posture during ADLs/ exercise and recreational activities in order to improve spinal biomechanics and safety 12/06/24: initiated in previous sessions with body mechanics training; progressing each session LTG Duration 8 weeks Two Impairment FGA 17/30, indicating increased risk of falls Short Term Goal (STG) Pt will be educated on fall risk reduction strategies due to hx of falls and near falls 12/06/24: issued today, educated during balance training STG Duration 3 weeks Ep Technologist Goal (LTG) If appropriate, pt will improve FGA to >22/30 to demonstrate decreased fall risk 12/06/24: 24/30 LTG Duration 8 weeks MET One Impairment not performing HEP or exercise program Short Term Goal (STG) Pt will be educated on energy conservation techniques 12/06/24: initiated in PT STG Duration 3 weeks [facility] Goal (LTG) If appropriate, pt will be IND with HEP for carryover at home upon discharge LTG Duration 8 weeks Progress Towards Goals Progress Towards Goals Progressing Toward Goals,Slow Progress due to Activity Tolerance,Goals Met Assessment Summary Assessment Pt continues to be pain free during session but quickly demos quad and glute fatigue with exercises. Needs intermittent seated and standing breaks between sets. Fewer cues needed for form with lunges except laterally. Wall posture restricted due to kyphosis. Met STS goal today. Balance on unstable surface and with decreased visual components challenging. FGA score improved but narrow RODRI and changing RODRI is most challenging. Physical Therapy Plan Frequency and Duration Frequency of Treatment 2x/Week Duration of treatment (weeks) 8 Plan of Care Start Date 11/08/24 Plan of Care End Date 01/04/25 Therapeutic Interventions Therapeutic Interventions Balance Training,Canalithic Repositioning,Gait Training, Home Exercise Program,Manual Therapy,Neuromuscular Re- education,Orthotic/Prosthetic Management,Patient/Caregiver Education,Self-Care/Home Management,Sensory Integration ,Soft Tissue Mobilization, Taping,Therapeutic Activities, Therapeutic Exercises, Vestibular Rehabilitation Other Therapeutic Interventions no modalities or joint mobilizations due to cancer Next Visit Focus/Plan Next Note Type Treatment Note Next Visit Plan global strengthening Foam-eyes open closed, add lunges etc. Wall posture. Retrial carioca. seated elliptical/recumbent bike for warm up/cool down global strengthening: neutral spine core in sitting- trial isometrics. stretch/calf stretch, leg press, step ups. UE strengthening: biceps curls, tricep curls, raises, Do not load heavily Balance with respect to neuropathy- modified single leg and balance activities for safety ( supine to sit with decreased velocity L and R side for HEP for core strength ) Chest steeple jack pool noodle, no roller, or pec stretch in supine trial Avoid supine core and pelvic tilts
--- NOTE | 2024-12-11 09:57 | PT.OTN ---
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 affecting estrogen receptors and estrogen levels (12/11/24) Physical Therapy Treatment Note PT-OP-A Visit Information Start: 11/08/24 07:28 Freq: Status: Active Protocol: Document 12/11/24 09:09 NM (Rec: 12/11/24 09:57 NM [id number]) Out-Patient Physical Therapy Visit Information Visit Information Visit Type Treatment Note Visit Note KX after 19 visits L brachial: 132/80 mmHg, 98%, 69 bpm; start of session Visit Start Time 09:10 Visit Stop Time 09:50 Visit Number 10 Evaluation Information Evaluation Date 11/08/24 Precautions Precautions Hx active cancer, including metastatic cancer to bones, cardiac stents, keeps nitroglyercin in L front pocket Monitor vitals No core supine, no pelvic tilts *metastasis to: R 2nd lateral rib, sternal manubrium, sternal body, R 5th rib head, R pubic root, L ischial tuberosity, R iliac crest* PT-OP-B Current Condition Start: 11/08/24 07:28 Freq: Status: Active Protocol: Document 11/08/24 07:34 NM (Rec: 11/08/24 09:05 NM [id number]) Current Condition History of Current Condition History of Current Condition Pt sent by Dr. Garrison for cancer-rehab therapy due to osteoporosis, weakness. Pt on hormone therapy, decreasing muscle mass. Pt gets yearly injections of reclast. Pt dx with cancer 2020, stage 4 adenocarcinoma; pt takes his pills every day. Pt has been steadily decreasing his activity due to fatigue, weakness. Pt is concerned about build upper body strength, getting up off of the floor (competitive shooting), standing up without putting hands on his knees, BLE weakness, balance ( visually dependent), gait. PMH includes 3 stents (2022), high blood pressure, fracture to L arm and collar bone. No falls but several near falls ( e.g. tripping over dog in dark ). Pt reports that he had an MRI yesterday, reports that he has a dilated ascending aorta (states cardiology reports PT ok) but pt concerned about. Pt has mets to 7 areas, unsure where except R hip Treatment Goals Patient/Caregiver Goals wants to improve ability to transfer to/from floor, transfer to/from chair without UE support, increase BLE and BUE strength, improve balance PT-OP-C Subjective Start: 11/08/24 07:28 Freq: Status: Active Protocol: Document 12/11/24 09:09 NM (Rec: 12/11/24 09:57 NM [id number]) OP-PT Subjective Patient Comments Patient Comments Pt reports less soreness in his muscles. Has questions about pallof press PT-OP-D Balance Start: 11/08/24 10:48 Freq: Status: Active Protocol: Document 11/08/24 07:34 NM (Rec: 11/08/24 10:52 NM [id number]) Balance Tests Other Other Balance Tests Performed FGA: , indicating increased risk of falls PT-OP-E Functional Tests Start: 11/08/24 07:28 Freq: Status: Active Protocol: Document 11/08/24 07:34 NM (Rec: 11/08/24 09:05 NM [id number]) Functional Tests Five Times Sit to Stand Test Score unable PT-OP-F Manual Assessment Start: 11/08/24 07:28 Freq: Status: Active Protocol: Document 11/08/24 07:34 NM (Rec: 11/08/24 09:05 NM [id number]) Manual Assessments Joint Mobility Assessment Joint Mobility Assessment Tragus-Wall Measurement: 20 cm PT-OP-G Mobility & Gait Start: 11/08/24 07:28 Freq: Status: Active Protocol: Document 11/08/24 07:34 NM (Rec: 11/08/24 09:05 NM [id number]) OP Gait Assessment Gait Gait Assistance Required: Standby Assistance Distance (Feet) 150 Assistive Devices Assistive Device None Comments Gait Comments Demos increased trunk sway, slower gait speed. Narrow RODRI, minimal trunk rotation. PT-OP-K Range of Motion Start: 11/08/24 07:28 Freq: Status: Active Protocol: Document 11/08/24 07:34 NM (Rec: 11/08/24 10:52 NM [id number]) Elbow/Forearm Range of Motion Elbow/Forearm Right Elbow Flexion (degrees) 145 Elbow Hyperextension 10 Left Elbow Flexion (degrees) 145 Elbow Hyperextension 10 Wrist Goniometric Range of Motion Wrist Right Flexion Active (degrees) 55 Extension Active (degrees) 60 Left Flexion Active (degrees) 50 Extension Active (degrees) 60 PT-OP-L Special Tests Start: 11/08/24 10:48 Freq: Status: Active Protocol: Document 11/08/24 07:34 NM (Rec: 11/08/24 10:52 NM [id number]) Special Tests Neural Special Tests- Upper Body Phalen's Test Results - Upper Limb Tension Test Test Results + Comments median, radial, ulnar- bilaterally Elbow Flexion Test Test Results + PT-OP-M Strength Start: 11/08/24 07:28 Freq: Status: Active Protocol: Document 11/08/24 07:34 NM (Rec: 11/08/24 09:05 NM [id number]) Trunk Strength Trunk Manual Muscle Testing Testing Position standing Flexion 3+ Fair+ Extension 3+ Fair+ Rotation Left 3+ Fair+ Rotation Right 3+ Fair+ Lateral Flexion Left 3+ Fair+ Lateral Flexion Right 3+ Fair+ Comments Challenging to stabilize against resistance Shoulder Strength Shoulder Manual Muscle Testing Right Flexion 4- Good- Abduction (C5) 4- Good- Left Flexion 4- Good- Abduction (C5) 4- Good- Elbow/Forearm Strength Elbow and Forearm Manual Muscle Testing Right Flexion (C6) 4- Good- Extension (C7) 4- Good- Left Flexion (C6) 4- Good- Extension (C7) 4- Good- Wrist Strength Wrist Manual Muscle Testing Right Flexion (C7) 4 Good Extension (C6) 4 Good Left Flexion (C7) 4 Good Extension (C6) 4 Good Hip Strength Hip Manual Muscle Testing Right Flexion (L2) 4- Good- Extension (S1) 4- Good- Abduction 4- Good- Adduction 4- Good- Comments tested in sitting Left Flexion (L2) 4- Good- Extension (S1) 4- Good- Abduction 4- Good- Adduction 4- Good- Knee Strength Knee Manual Muscle Testing Right Flexion (S2) 4- Good- Extension (L3) 4- Good- Left Flexion (S2) 4- Good- Extension (L3) 4- Good- PT-OP-Q Treatments Start: 11/08/24 07:28 Freq: Status: Active Protocol: Document 12/11/24 09:09 NM (Rec: 12/11/24 09:57 NM [id number]) Therapeutic Exercises Standing Exercises calf raise Standing Exercise Name on 4 stairs from deficit position Side bilateral Equipment Used B hand support for balance Reps/Minutes 20 (2 calf stretch at bottom range) Comments edu to avoid long stretch at this time, no pain lunge Standing Exercise Name HEP review fwd Side bilateral Resistance 5# db ea hand Reps/Minutes 15 ea leg Patllof press Standing Exercise Name HEP review: 1. press, 2. squat position-added HEP (cued hip hinge) Side bilateral Resistance level 3 point hope ira band Reps/Minutes 15 ea Comments cued for hand placement and core bracing; no pain, maintains form Neuro Re-Education Treatment Balance Activities Head movements Surface black therapad- unstable Comments 1. head turns 2. head nods hurdles Details CGA Surface stable and unstable Reps/Duration 2 sets ea x 6 hurdles (10 ft) Comments 1. hurdles reciprocal 2. lateral 3. c/ foam between fwd 4. c/ foam between lateral 5. c/ foam between fwd and passing ball back and forth while stepping changing RODRI Surface black therapad-unstable Comments 1. side to side ball pass 2. front to back ball pass foam Details close SBA Surface blue therapad, black therapad Equipment hand near //bar if needed, not used Comments 1. eyes closed stance 2. eyes closed horizontal head turns 3. eyes closed vertical head turns PT-OP-T Assessment and Plan Start: 11/08/24 07:28 Freq: Status: Active Protocol: Document 12/11/24 09:09 NM (Rec: 12/11/24 09:57 NM [id number]) Physical Therapy Assessment Goals Four Impairment difficulty w/ STS transfers, needs UE assist; difficulty w/ floor transfers Short Term Goal (STG) If appropriate, pt will be able to demonstrate at least 5 transfers from chair without UE assist in order to demonstrate increased BLE strength during transfers 12/06/24: 8 STS from standard chair wthout UE assist, maintains good body mechanics, no pain STG Duration 6 weeks MET Three Impairment tragus-wall test 20 cm, hx of osteoporosis; hx shooting for recreation Broadcast Systems Engineer Goal (LTG) Pt will be educated on neutral spinal posture during ADLs/ exercise and recreational activities in order to improve spinal biomechanics and safety 12/06/24: initiated in previous sessions with body mechanics training; progressing each session LTG Duration 8 weeks Two Impairment FGA 17/30, indicating increased risk of falls Short Term Goal (STG) Pt will be educated on fall risk reduction strategies due to hx of falls and near falls 12/06/24: issued today, educated during balance training STG Duration 3 weeks Custodial Goal (LTG) If appropriate, pt will improve FGA to >22/30 to demonstrate decreased fall risk 12/06/24: 2430 LTG Duration 8 weeks MET One Impairment not performing HEP or exercise program Short Term Goal (STG) Pt will be educated on energy conservation techniques 12/06/24: initiated in PT STG Duration 3 weeks Custodial Goal (LTG) If appropriate, pt will be IND with HEP for carryover at home upon discharge LTG Duration 8 weeks Assessment Summary Assessment Pt responds well to increased resistance during lunges and pallof press. Needs cueing for form but able to maintain safe vitals during exercise and good form/core bracing during exercises. Has muscle fatigue at end of session but denies pain/soreness. Progressed balance exercises to include more activities on unstable surface, reduced visual input, and changing RODRI . Cueing needed for postural muscle activation, in addition to intermittent assist by PT. Physical Therapy Plan Frequency and Duration Frequency of Treatment 2x/Week Duration of treatment (weeks) 8 Plan of Care Start Date 11/08/24 Plan of Care End Date 01/04/25 Therapeutic Interventions Therapeutic Interventions Balance Training,Canalithic Repositioning,Gait Training, Home Exercise Program,Manual Therapy,Neuromuscular Re- education,Orthotic/Prosthetic Management,Patient/Caregiver Education,Self-Care/Home Management,Sensory Integration ,Soft Tissue Mobilization, Taping,Therapeutic Activities, Therapeutic Exercises, Vestibular Rehabilitation Other Therapeutic Interventions no modalities or joint mobilizations due to cancer Next Visit Focus/Plan Next Note Type Treatment Note Next Visit Plan global strengthening Assess josué to weight lunges. Trial quadruped core and postural strengthening. Wall posture. Retrial carioca. seated elliptical/recumbent bike for warm up/cool down global strengthening: neutral spine core in sitting- trial isometrics. stretch/calf stretch, leg press, step ups. UE strengthening: biceps curls, tricep curls, raises, Do not load heavily Balance with respect to neuropathy- modified single leg and balance activities for safety ( supine to sit with decreased velocity L and R side for HEP for core strength ) Chest taxation consultant pool noodle, no roller, or pec stretch in supine trial Avoid supine core and pelvic tilts
--- NOTE | 2024-12-13 09:44 | PT.OTN ---
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 receptors and estrogen levels (12/13/24) Physical Therapy Treatment Note PT-OP-A Visit Information Start: 11/08/24 07:28 Freq: Status: Active Protocol: Document 12/13/24 09:01 NM (Rec: 12/13/24 09:43 NM [id number]) Out-Patient Physical Therapy Visit Information Visit Information Visit Type Treatment Note Visit Note KX after 19 visits R brachial: 123/67 mmHg, 98%, 75 bpm; start of session Visit Start Time 09:02 Visit Stop Time 09:42 Visit Number 11 (3/10 PN) Evaluation Information Evaluation Date 11/08/24 Precautions Precautions Hx active cancer, including metastatic cancer to bones, cardiac stents, keeps nitroglyercin in L front pocket Monitor vitals No core supine, no pelvic tilts *metastasis to: R 2nd lateral rib, sternal manubrium, sternal body, R 5th rib head, R pubic root, L ischial tuberosity, R iliac crest* PT-OP-B Current Condition Start: 11/08/24 07:28 Freq: Status: Active Protocol: Document 11/08/24 07:34 NM (Rec: 11/08/24 09:05 NM [id number]) Current Condition History of Current Condition History of Current Condition Pt sent by Dr. Garrison for cancer-rehab therapy due to osteoporosis, weakness. Pt on hormone therapy, decreasing muscle mass. Pt gets yearly injections of reclast. Pt dx with cancer 2020, stage 4 adenocarcinoma; pt takes his pills every day. Pt has been steadily decreasing his activity due to fatigue, weakness. Pt is concerned about build upper body strength, getting up off of the floor (competitive shooting), standing up without putting hands on his knees, BLE weakness, balance ( visually dependent), gait. PMH includes 3 stents (2022), high blood pressure, fracture to L arm and collar bone. No falls but several near falls ( e.g. tripping over dog in dark ). Pt reports that he had an MRI yesterday, reports that he has a dilated ascending aorta (states cardiology reports PT ok) but pt concerned about. Pt has mets to 7 areas, unsure where except R hip Treatment Goals Patient/Caregiver Goals wants to improve ability to transfer to/from floor, transfer to/from chair without UE support, increase BLE and BUE strength, improve balance PT-OP-C Subjective Start: 11/08/24 07:28 Freq: Status: Active Protocol: Document 12/13/24 09:01 NM (Rec: 12/13/24 09:43 NM [id number]) OP-PT Subjective Patient Comments Patient Comments Pt reports that he has no pain or soreness. He reports that his watch alerted him that his heart rate was under 35 bpm; states occurred while eating lunch in sitting position, did not feel anything, did not have to take medication PT-OP-D Balance Start: 11/08/24 10:48 Freq: Status: Active Protocol: Document 11/08/24 07:34 NM (Rec: 11/08/24 10:52 NM [id number]) Balance Tests Other Other Balance Tests Performed FGA: , indicating increased risk of falls PT-OP-E Functional Tests Start: 11/08/24 07:28 Freq: Status: Active Protocol: Document 11/08/24 07:34 NM (Rec: 11/08/24 09:05 NM [id number]) Functional Tests Five Times Sit to Stand Test Score unable PT-OP-F Manual Assessment Start: 11/08/24 07:28 Freq: Status: Active Protocol: Document 11/08/24 07:34 NM (Rec: 11/08/24 09:05 NM [id number]) Manual Assessments Joint Mobility Assessment Joint Mobility Assessment Tragus-Wall Measurement: 20 cm PT-OP-G Mobility & Gait Start: 11/08/24 07:28 Freq: Status: Active Protocol: Document 11/08/24 07:34 NM (Rec: 11/08/24 09:05 NM [id number]) OP Gait Assessment Gait Gait Assistance Required: Standby Assistance Distance (Feet) 150 Assistive Devices Assistive Device None Comments Gait Comments Demos increased trunk sway, slower gait speed. Narrow RODRI, minimal trunk rotation. PT-OP-K Range of Motion Start: 11/08/24 07:28 Freq: Status: Active Protocol: Document 11/08/24 07:34 NM (Rec: 11/08/24 10:52 NM [id number]) Elbow/Forearm Range of Motion Elbow/Forearm Right Elbow Flexion (degrees) 145 Elbow Hyperextension 10 Left Elbow Flexion (degrees) 145 Elbow Hyperextension 10 Wrist Goniometric Range of Motion Wrist Right Flexion Active (degrees) 55 Extension Active (degrees) 60 Left Flexion Active (degrees) 50 Extension Active (degrees) 60 PT-OP-L Special Tests Start: 11/08/24 10:48 Freq: Status: Active Protocol: Document 11/08/24 07:34 NM (Rec: 11/08/24 10:52 NM [id number]) Special Tests Neural Special Tests- Upper Body Phalen's Test Results - Upper Limb Tension Test Test Results + Comments median, radial, ulnar- bilaterally Elbow Flexion Test Test Results + PT-OP-M Strength Start: 11/08/24 07:28 Freq: Status: Active Protocol: Document 11/08/24 07:34 NM (Rec: 11/08/24 09:05 NM [id number]) Trunk Strength Trunk Manual Muscle Testing Testing Position standing Flexion 3+ Fair+ Extension 3+ Fair+ Rotation Left 3+ Fair+ Rotation Right 3+ Fair+ Lateral Flexion Left 3+ Fair+ Lateral Flexion Right 3+ Fair+ Comments Challenging to stabilize against resistance Shoulder Strength Shoulder Manual Muscle Testing Right Flexion 4- Good- Abduction (C5) 4- Good- Left Flexion 4- Good- Abduction (C5) 4- Good- Elbow/Forearm Strength Elbow and Forearm Manual Muscle Testing Right Flexion (C6) 4- Good- Extension (C7) 4- Good- Left Flexion (C6) 4- Good- Extension (C7) 4- Good- Wrist Strength Wrist Manual Muscle Testing Right Flexion (C7) 4 Good Extension (C6) 4 Good Left Flexion (C7) 4 Good Extension (C6) 4 Good Hip Strength Hip Manual Muscle Testing Right Flexion (L2) 4- Good- Extension (S1) 4- Good- Abduction 4- Good- Adduction 4- Good- Comments tested in sitting Left Flexion (L2) 4- Good- Extension (S1) 4- Good- Abduction 4- Good- Adduction 4- Good- Knee Strength Knee Manual Muscle Testing Right Flexion (S2) 4- Good- Extension (L3) 4- Good- Left Flexion (S2) 4- Good- Extension (L3) 4- Good- PT-OP-Q Treatments Start: 11/08/24 07:28 Freq: Status: Active Protocol: Document 12/13/24 09:01 NM (Rec: 12/13/24 09:43 NM [id number]) Therapeutic Exercises Prone Exercises posterior chain activation Prone Exercise Name 1. UE lifts (non-alt), 2. LE ext, 3. bird dog (non-alt) Side bilateral Equipment Used pillows under hips for prone; yardstick cues for neutral Reps/Minutes 12 ea Comments cued form; challenging; HR 78 bpm Standing Exercises biceps curls Side bilateral Resistance 5# db Reps/Minutes 10 ea wall posture Standing Exercise Name 1. cervical retraction, 2. B ER + lift, 3. fwd raises, 4. lateral raises Side bilateral Resistance 2. level 1 band loop, 3&4. 2.2 # ball Equipment Used towel roll behind head Reps/Minutes 1. 15, 2. 2x5, 3. 2x10 (break btwn sets), 4. 2x10 (break btwn sets) Comments cued form; challenging; 84 bpm ; wall tragus: 16 cm lunge Standing Exercise Name 1. HEP review: fwd stepping, 2 . lateral Side bilateral Resistance 5# db ea hand Reps/Minutes 1. 12 ea leg, 2. 5 ea w/o wt and 8 ea with wt Comments RLE more challenging- less depth and demos more fatigue PT-OP-T Assessment and Plan Start: 11/08/24 07:28 Freq: Status: Active Protocol: Document 12/13/24 09:01 NM (Rec: 12/13/24 09:43 NM [id number]) Physical Therapy Assessment Goals Four Impairment difficulty w/ STS transfers, needs UE assist; difficulty w/ floor transfers Short Term Goal (STG) If appropriate, pt will be able to demonstrate at least 5 transfers from chair without UE assist in order to demonstrate increased BLE strength during transfers 12/06/24: 8 STS from standard chair wthout UE assist, maintains good body mechanics, no pain STG Duration 6 weeks MET Three Impairment tragus-wall test 20 cm, hx of osteoporosis; hx shooting for recreation Electromedical Equipment Technician Goal (LTG) Pt will be educated on neutral spinal posture during ADLs/ exercise and recreational activities in order to improve spinal biomechanics and safety 12/06/24: initiated in previous sessions with body mechanics training; progressing each session 12/13/24: posterior chain strengthening, neutral spine mechanics each session; wall- tragus test 16 cm LTG Duration 8 weeks Two Impairment FGA 17/30, indicating increased risk of falls Short Term Goal (STG) Pt will be educated on fall risk reduction strategies due to hx of falls and near falls 12/06/24: issued today, educated during balance training STG Duration 3 weeks Electromedical Equipment Technician Goal (LTG) If appropriate, pt will improve FGA to >22/30 to demonstrate decreased fall risk 12/06/24: 24/30 LTG Duration 8 weeks MET One Impairment not performing HEP or exercise program Short Term Goal (STG) Pt will be educated on energy conservation techniques 12/06/24: initiated in PT STG Duration 3 weeks Electromedical Equipment Technician Goal (LTG) If appropriate, pt will be IND with HEP for carryover at home upon discharge LTG Duration 8 weeks Progress Towards Goals Progress Towards Goals Progressing Toward Goals Assessment Summary Assessment Emphasis on spinal mechanics and postural re-education this session. Tragus-wall measurment improved from 20 cm to 16 cm. Cueing needed for form, posture, neutral spine, and breathwork to limit breathholding. Initiated UE strengthening with low level resistance and posterior chain strengthening in modified prone/quadruped. Challenging for pt to perform, especially while maintaining form. RLE weaker than LLE with all exercises. Pt's heart rate elevates with exercise and remains in safe exercise range ; needs intermittent seated rest breaks today. Physical Therapy Plan Frequency and Duration Frequency of Treatment 2x/Week Duration of treatment (weeks) 8 Plan of Care Start Date 11/08/24 Plan of Care End Date 01/04/25 Therapeutic Interventions Therapeutic Interventions Balance Training,Canalithic Repositioning,Gait Training, Home Exercise Program,Manual Therapy,Neuromuscular Re- education,Orthotic/Prosthetic Management,Patient/Caregiver Education,Self-Care/Home Management,Sensory Integration ,Soft Tissue Mobilization, Taping,Therapeutic Activities, Therapeutic Exercises, Vestibular Rehabilitation Other Therapeutic Interventions no modalities or joint mobilizations due to cancer Next Visit Focus/Plan Next Note Type Treatment Note Next Visit Plan global strengthening Trial saturnino sheridan. Add UE c/ wt and supported posture, Reassess quadruped core and postural strengthening. seated elliptical/recumbent bike for warm up/cool down global strengthening: neutral spine core in sitting- trial isometrics. stretch/calf stretch, leg press, step ups. UE strengthening: biceps curls, tricep curls, raises, Do not load heavily Balance with respect to neuropathy- modified single leg and balance activities for safety ( supine to sit with decreased velocity L and R side for HEP for core strength ) Chest punch box tender pool noodle, no roller, or pec stretch in supine trial Avoid supine core and pelvic tilts
--- NOTE | 2024-12-18 10:53 | PT.OTN ---
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 O2 sat 97% Visit Start Time 09:04 Visit Stop Time 09:52 Visit Number 12 ( 01/24 for PN) Number of CONCHE OPERATOR Visits 1 Evaluation Information Evaluation Date 11/08/24 Precautions Precautions Hx active cancer, including metastatic cancer to bones, cardiac stents, keeps nitroglyercin in L front pocket Monitor vitals No core supine, no pelvic tilts *metastasis to: R 2nd lateral rib, sternal manubrium, sternal body, R 5th rib head, R pubic root, L ischial tuberosity, R iliac crest* PT-OP-B Current Condition Start: 11/08/24 07:28 Freq: Status: Active Protocol: Document 11/08/24 07:34 NM (Rec: 11/08/24 09:05 NM [id number]) Current Condition History of Current Condition History of Current Condition Pt sent by Dr. Garrison for cancer-rehab therapy due to osteoporosis, weakness. Pt on hormone therapy, decreasing muscle mass. Pt gets yearly injections of reclast. Pt dx with cancer 2020, stage 4 adenocarcinoma; pt takes his pills every day. Pt has been steadily decreasing his activity due to fatigue, weakness. Pt is concerned about build upper body strength, getting up off of the floor (competitive shooting), standing up without putting hands on his knees, BLE weakness, balance ( visually dependent), gait. PMH includes 3 stents (2022), high blood pressure, fracture to L arm and collar bone. No falls but several near falls ( e.g. tripping over dog in dark ). Pt reports that he had an MRI yesterday, reports that he has a dilated ascending aorta (states cardiology reports PT ok) but pt concerned about. Pt has mets to 7 areas, unsure where except R hip Treatment Goals Patient/Caregiver Goals wants to improve ability to transfer to/from floor, transfer to/from chair without UE support, increase BLE and BUE strength, improve balance PT-OP-C Subjective Start: 11/08/24 07:28 Freq: Status: Active Protocol: Document 12/18/24 08:16 AB (Rec: 12/18/24 10:53 AB [id number]) OP-PT Subjective Patient Comments Patient Comments Patient comments he feels like he is not centered, not all there today. Patient reports he has a little bit of a head ache. Observed patient to be pale. Patient reports he has gained 8.5 lb in past week attributes to lymphedema, reports wearing compression socks and performing his lymphedema massage. PT-OP-D Balance Start: 11/08/24 10:48 Freq: Status: Active Protocol: Document 11/08/24 07:34 NM (Rec: 11/08/24 10:52 NM [id number]) Balance Tests Other Other Balance Tests Performed FGA: , indicating increased risk of falls PT-OP-E Functional Tests Start: 11/08/24 07:28 Freq: Status: Active Protocol: Document 11/08/24 07:34 NM (Rec: 11/08/24 09:05 NM [id number]) Functional Tests Five Times Sit to Stand Test Score unable PT-OP-F Manual Assessment Start: 11/08/24 07:28 Freq: Status: Active Protocol: Document 11/08/24 07:34 NM (Rec: 11/08/24 09:05 NM [id number]) Manual Assessments Joint Mobility Assessment Joint Mobility Assessment Tragus-Wall Measurement: 20 cm PT-OP-G Mobility & Gait Start: 11/08/24 07:28 Freq: Status: Active Protocol: Document 11/08/24 07:34 NM (Rec: 11/08/24 09:05 NM [id number]) OP Gait Assessment Gait Gait Assistance Required: Standby Assistance Distance (Feet) 150 Assistive Devices Assistive Device None Comments Gait Comments Demos increased trunk sway, slower gait speed. Narrow RODRI, minimal trunk rotation. PT-OP-K Range of Motion Start: 11/08/24 07:28 Freq: Status: Active Protocol: Document 11/08/24 07:34 NM (Rec: 11/08/24 10:52 NM [id number]) Elbow/Forearm Range of Motion Elbow/Forearm Right Elbow Flexion (degrees) 145 Elbow Hyperextension 10 Left Elbow Flexion (degrees) 145 Elbow Hyperextension 10 Wrist Goniometric Range of Motion Wrist Right Flexion Active (degrees) 55 Extension Active (degrees) 60 Left Flexion Active (degrees) 50 Extension Active (degrees) 60 PT-OP-L Special Tests Start: 11/08/24 10:48 Freq: Status: Active Protocol: Document 11/08/24 07:34 NM (Rec: 11/08/24 10:52 NM [id number]) Special Tests Neural Special Tests- Upper Body Phalen's Test Results - Upper Limb Tension Test Test Results + Comments median, radial, ulnar- bilaterally Elbow Flexion Test Test Results + PT-OP-M Strength Start: 11/08/24 07:28 Freq: Status: Active Protocol: Document 11/08/24 07:34 NM (Rec: 11/08/24 09:05 NM [id number]) Trunk Strength Trunk Manual Muscle Testing Testing Position standing Flexion 3+ Fair+ Extension 3+ Fair+ Rotation Left 3+ Fair+ Rotation Right 3+ Fair+ Lateral Flexion Left 3+ Fair+ Lateral Flexion Right 3+ Fair+ Comments Challenging to stabilize against resistance Shoulder Strength Shoulder Manual Muscle Testing Right Flexion 4- Good- Abduction (C5) 4- Good- Left Flexion 4- Good- Abduction (C5) 4- Good- Elbow/Forearm Strength Elbow and Forearm Manual Muscle Testing Right Flexion (C6) 4- Good- Extension (C7) 4- Good- Left Flexion (C6) 4- Good- Extension (C7) 4- Good- Wrist Strength Wrist Manual Muscle Testing Right Flexion (C7) 4 Good Extension (C6) 4 Good Left Flexion (C7) 4 Good Extension (C6) 4 Good Hip Strength Hip Manual Muscle Testing Right Flexion (L2) 4- Good- Extension (S1) 4- Good- Abduction 4- Good- Adduction 4- Good- Comments tested in sitting Left Flexion (L2) 4- Good- Extension (S1) 4- Good- Abduction 4- Good- Adduction 4- Good- Knee Strength Knee Manual Muscle Testing Right Flexion (S2) 4- Good- Extension (L3) 4- Good- Left Flexion (S2) 4- Good- Extension (L3) 4- Good- PT-OP-Q Treatments Start: 11/08/24 07:28 Freq: Status: Active Protocol: Document 12/18/24 08:16 AB (Rec: 12/18/24 10:53 AB [id number]) Gym Equipment Shuttle Recovery single LE Details 25# navy 37 # Teal Reps/Time X15 each LE, each weight bilateral Resistance 75 3 teal the 82 # Reps/Time 15X 1 each weight Therapeutic Exercises Prone Exercises posterior chain activation Prone Exercise Name 1. UE lifts (non-alt), 2. LE ext, 3. bird dog (non-alt) Side bilateral Equipment Used quadruped this session Reps/Minutes 10 ea Comments verbal and tactile cues for position of head, Occ ~8 cm from wall Standing Exercises wall posture Standing Exercise Name 1. cervical retraction, 2. B ER + lift, 3. fwd raises, 4. lateral raises Side bilateral Resistance 2. level 1 band loop, 3&4. 2.2 # ball Equipment Used towel roll behind head Reps/Minutes 1. X16 2. X10 3&4/ X10 Comments VC for thums up with flex and abd Other Exercises Isometric reactive Other Exercise Name for deep neck flexors standing back to wall Resistance Level one band Reps/Minutes X10 Comments Verbal and visual cues Neuro Re-Education Treatment Balance Activities bosu Details Lunges Surface blue side up Equipment no UE support hands above bars Reps/Duration X10 each LE Comments CGA Self-Care/Home Management Treatment Education Other Education Patient ed/advise to make MD aware of LE swelling, increased weight with LE swelling. PT-OP-T Assessment and Plan Start: 11/08/24 07:28 Freq: Status: Active Protocol: Document 12/18/24 08:16 AB (Rec: 12/18/24 10:53 AB [id number]) Physical Therapy Assessment Goals Four Impairment difficulty w/ STS transfers, needs UE assist; difficulty w/ floor transfers Short Term Goal (STG) If appropriate, pt will be able to demonstrate at least 5 transfers from chair without UE assist in order to demonstrate increased BLE strength during transfers 12/06/24: 8 STS from standard chair wthout UE assist, maintains good body mechanics, no pain STG Duration 6 weeks MET Three Impairment tragus-wall test 20 cm, hx of osteoporosis; hx shooting for recreation Halfway Goal (LTG) Pt will be educated on neutral spinal posture during ADLs/ exercise and recreational activities in order to improve spinal biomechanics and safety 12/06/24: initiated in previous sessions with body mechanics training; progressing each session 12/13/24: posterior chain strengthening, neutral spine mechanics each session; wall- tragus test 16 cm LTG Duration 8 weeks Two Impairment FGA 17/30, indicating increased risk of falls Short Term Goal (STG) Pt will be educated on fall risk reduction strategies due to hx of falls and near falls 12/06/24: issued today, educated during balance training STG Duration 3 weeks Halfway Goal (LTG) If appropriate, pt will improve FGA to >22/30 to demonstrate decreased fall risk 12/06/24: 24/30 LTG Duration 8 weeks MET One Impairment not performing HEP or exercise program Short Term Goal (STG) Pt will be educated on energy conservation techniques 12/06/24: initiated in PT STG Duration 3 weeks Food Mobile Driver Goal (LTG) If appropriate, pt will be IND with HEP for carryover at home upon discharge LTG Duration 8 weeks Assessment Summary Assessment Patient reports no pain end of session, but does report feeling light headed. BP seated L UE 121/79 HR 67. O2 sat 95%. Patient reported lightheadedness resolved prior to leaving session, attributes sensation to start of hot flash. Physical Therapy Plan Frequency and Duration Frequency of Treatment 2x/Week Duration of treatment (weeks) 8 Plan of Care Start Date 11/08/24 Plan of Care End Date 01/04/25 Next Visit Focus/Plan Next Note Type Treatment Note Next Visit Plan global strengthening Trial saturnino sheridan. Add UE c/ wt and supported posture, Reassess quadruped core and postural strengthening. seated elliptical/recumbent bike for warm up/cool down global strengthening: neutral spine core in sitting- trial isometrics. stretch/calf stretch, leg press, step ups. UE strengthening: biceps curls, tricep curls, raises, Do not load heavily Balance with respect to neuropathy- modified single leg and balance activities for safety ( supine to sit with decreased velocity L and R side for HEP for core strength ) Chest historical site guide pool noodle, no roller, or pec stretch in supine trial Avoid supine core and pelvic tilts
--- NOTE | 2024-12-20 11:31 | PT.OTN ---
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 receptors and estrogen levels (12/20/24) Physical Therapy Treatment Note PT-OP-A Visit Information Start: 11/08/24 07:28 Freq: Status: Active Protocol: Document 12/20/24 10:46 NM (Rec: 12/20/24 11:31 NM [id number]) Out-Patient Physical Therapy Visit Information Visit Information Visit Type Treatment Note Visit Note KX after 19 visits BP L UE seated 127/79 mmHg, 99 %, 67 bpm Visit Start Time 10:50 Visit Stop Time 11:28 Visit Number 13 (5/10 PN) Evaluation Information Evaluation Date 11/08/24 Precautions Precautions Hx active cancer, including metastatic cancer to bones, cardiac stents, keeps nitroglyercin in L front pocket Monitor vitals No core supine, no pelvic tilts *metastasis to: R 2nd lateral rib, sternal manubrium, sternal body, R 5th rib head, R pubic root, L ischial tuberosity, R iliac crest* PT-OP-B Current Condition Start: 11/08/24 07:28 Freq: Status: Active Protocol: Document 11/08/24 07:34 NM (Rec: 11/08/24 09:05 NM [id number]) Current Condition History of Current Condition History of Current Condition Pt sent by Dr. Garrison for cancer-rehab therapy due to osteoporosis, weakness. Pt on hormone therapy, decreasing muscle mass. Pt gets yearly injections of reclast. Pt dx with cancer 2020, stage 4 adenocarcinoma; pt takes his pills every day. Pt has been steadily decreasing his activity due to fatigue, weakness. Pt is concerned about build upper body strength, getting up off of the floor (competitive shooting), standing up without putting hands on his knees, BLE weakness, balance ( visually dependent), gait. PMH includes 3 stents (2022), high blood pressure, fracture to L arm and collar bone. No falls but several near falls ( e.g. tripping over dog in dark ). Pt reports that he had an MRI yesterday, reports that he has a dilated ascending aorta (states cardiology reports PT ok) but pt concerned about. Pt has mets to 7 areas, unsure where except R hip Treatment Goals Patient/Caregiver Goals wants to improve ability to transfer to/from floor, transfer to/from chair without UE support, increase BLE and BUE strength, improve balance PT-OP-C Subjective Start: 11/08/24 07:28 Freq: Status: Active Protocol: Document 12/20/24 10:46 NM (Rec: 12/20/24 11:31 NM [id number]) OP-PT Subjective Patient Comments Patient Comments Pt reports alerted physician about swelling; has not heard back yet. States that he is feeling better. Wants to know exercises he can do at gym since has member PT-OP-D Balance Start: 11/08/24 10:48 Freq: Status: Active Protocol: Document 11/08/24 07:34 NM (Rec: 11/08/24 10:52 NM [id number]) Balance Tests Other Other Balance Tests Performed FGA: , indicating increased risk of falls PT-OP-E Functional Tests Start: 11/08/24 07:28 Freq: Status: Active Protocol: Document 11/08/24 07:34 NM (Rec: 11/08/24 09:05 NM [id number]) Functional Tests Five Times Sit to Stand Test Score unable PT-OP-F Manual Assessment Start: 11/08/24 07:28 Freq: Status: Active Protocol: Document 11/08/24 07:34 NM (Rec: 11/08/24 09:05 NM [id number]) Manual Assessments Joint Mobility Assessment Joint Mobility Assessment Tragus-Wall Measurement: 20 cm PT-OP-G Mobility & Gait Start: 11/08/24 07:28 Freq: Status: Active Protocol: Document 11/08/24 07:34 NM (Rec: 11/08/24 09:05 NM [id number]) OP Gait Assessment Gait Gait Assistance Required: Standby Assistance Distance (Feet) 150 Assistive Devices Assistive Device None Comments Gait Comments Demos increased trunk sway, slower gait speed. Narrow RODRI, minimal trunk rotation. PT-OP-K Range of Motion Start: 11/08/24 07:28 Freq: Status: Active Protocol: Document 11/08/24 07:34 NM (Rec: 11/08/24 10:52 NM [id number]) Elbow/Forearm Range of Motion Elbow/Forearm Right Elbow Flexion (degrees) 145 Elbow Hyperextension 10 Left Elbow Flexion (degrees) 145 Elbow Hyperextension 10 Wrist Goniometric Range of Motion Wrist Right Flexion Active (degrees) 55 Extension Active (degrees) 60 Left Flexion Active (degrees) 50 Extension Active (degrees) 60 PT-OP-L Special Tests Start: 11/08/24 10:48 Freq: Status: Active Protocol: Document 11/08/24 07:34 NM (Rec: 11/08/24 10:52 NM [id number]) Special Tests Neural Special Tests- Upper Body Phalen's Test Results - Upper Limb Tension Test Test Results + Comments median, radial, ulnar- bilaterally Elbow Flexion Test Test Results + PT-OP-M Strength Start: 11/08/24 07:28 Freq: Status: Active Protocol: Document 11/08/24 07:34 NM (Rec: 11/08/24 09:05 NM [id number]) Trunk Strength Trunk Manual Muscle Testing Testing Position standing Flexion 3+ Fair+ Extension 3+ Fair+ Rotation Left 3+ Fair+ Rotation Right 3+ Fair+ Lateral Flexion Left 3+ Fair+ Lateral Flexion Right 3+ Fair+ Comments Challenging to stabilize against resistance Shoulder Strength Shoulder Manual Muscle Testing Right Flexion 4- Good- Abduction (C5) 4- Good- Left Flexion 4- Good- Abduction (C5) 4- Good- Elbow/Forearm Strength Elbow and Forearm Manual Muscle Testing Right Flexion (C6) 4- Good- Extension (C7) 4- Good- Left Flexion (C6) 4- Good- Extension (C7) 4- Good- Wrist Strength Wrist Manual Muscle Testing Right Flexion (C7) 4 Good Extension (C6) 4 Good Left Flexion (C7) 4 Good Extension (C6) 4 Good Hip Strength Hip Manual Muscle Testing Right Flexion (L2) 4- Good- Extension (S1) 4- Good- Abduction 4- Good- Adduction 4- Good- Comments tested in sitting Left Flexion (L2) 4- Good- Extension (S1) 4- Good- Abduction 4- Good- Adduction 4- Good- Knee Strength Knee Manual Muscle Testing Right Flexion (S2) 4- Good- Extension (L3) 4- Good- Left Flexion (S2) 4- Good- Extension (L3) 4- Good- PT-OP-Q Treatments Start: 11/08/24 07:28 Freq: Status: Active Protocol: Document 12/20/24 10:46 NM (Rec: 12/20/24 11:31 NM [id number]) Therapeutic Exercises Standing Exercises serratus activation Standing Exercise Name ball at wall Side bilateral Reps/Minutes 30 CCW, 30 CW Comments cued protraction biceps curls Side bilateral Resistance 8# db ea hand Reps/Minutes 3x10 wall posture Standing Exercise Name 1. fwd raise (HEP), 2. lateral raise (HEP), 3. upright row Side bilateral Resistance 3# db Reps/Minutes 1. 3x8 ea, 2. 3x8 ea, 2x8 ea Comments improved cervical retraction position wall push up plus Standing Exercise Name hands in bessie position Side bilateral Equipment Used HEP review Reps/Minutes 20 c/ alt taps at wall Comments inclined at wall Other Exercises Isometric reactive Other Exercise Name for deep neck flexors standing back to wall Resistance Level one band Reps/Minutes 10 x1 hold Comments Verbal and visual cues Self-Care/Home Management Treatment Education Patient Education Home Exercise Program,Pain Management,Safety Other Education Education on reps/sets at gym (recommended keep to PT prescription and resistance then gradually progress reps/ sets > resistance) using reps in the tank mindset. Education on activity modification and energy conservation with exercises depending on the day, may not be able to do each time depending on how pt feeling each day. Recommended pt look at gym machines and free weights to determine if safe for spine before performing (e .g. no sit ups/sit up machine, no repetitive spinal twisting ). PT-OP-T Assessment and Plan Start: 11/08/24 07:28 Freq: Status: Active Protocol: Document 12/20/24 10:46 NM (Rec: 12/20/24 11:31 NM [id number]) Physical Therapy Assessment Goals Four Impairment difficulty w/ STS transfers, needs UE assist; difficulty w/ floor transfers Short Term Goal (STG) If appropriate, pt will be able to demonstrate at least 5 transfers from chair without UE assist in order to demonstrate increased BLE strength during transfers 12/06/24: 8 STS from standard chair wthout UE assist, maintains good body mechanics, no pain STG Duration 6 weeks MET Three Impairment tragus-wall test 20 cm, hx of osteoporosis; hx shooting for recreation Assisted Goal (LTG) Pt will be educated on neutral spinal posture during ADLs/ exercise and recreational activities in order to improve spinal biomechanics and safety 12/06/24: initiated in previous sessions with body mechanics training; progressing each session 12/13/24: posterior chain strengthening, neutral spine mechanics each session; wall- tragus test 16 cm LTG Duration 8 weeks Two Impairment FGA 17/30, indicating increased risk of falls Short Term Goal (STG) Pt will be educated on fall risk reduction strategies due to hx of falls and near falls 12/06/24: issued today, educated during balance training STG Duration 3 weeks Cattle Alley Worker Goal (LTG) If appropriate, pt will improve FGA to >22/30 to demonstrate decreased fall risk 12/06/24: 24/30 LTG Duration 8 weeks MET One Impairment not performing HEP or exercise program Short Term Goal (STG) Pt will be educated on energy conservation techniques 12/06/24: initiated in PT STG Duration 3 weeks Cattle Alley Worker Goal (LTG) If appropriate, pt will be IND with HEP for carryover at home upon discharge LTG Duration 8 weeks Assessment Summary Assessment Created UE strengthening program for pt to perform at gym. Cueing needed for correct execution initially but able to perform following cueing with good carryover and maintains safe joint positioning. Progressed resistance from last sessions. Clear education on joint protection, recommendation for sets/reps/breaks and resistance levels; clear education that heavier resistance is not better and may be harmful for pt. Pt verbalizes understanding. Physical Therapy Plan Frequency and Duration Frequency of Treatment 2x/Week Duration of treatment (weeks) 8 Plan of Care Start Date 11/08/24 Plan of Care End Date 01/04/25 Therapeutic Interventions Therapeutic Interventions Balance Training,Canalithic Repositioning,Gait Training, Home Exercise Program,Manual Therapy,Neuromuscular Re- education,Orthotic/Prosthetic Management,Patient/Caregiver Education,Self-Care/Home Management,Sensory Integration ,Soft Tissue Mobilization, Taping,Therapeutic Activities, Therapeutic Exercises, Vestibular Rehabilitation Other Therapeutic Interventions no modalities or joint mobilizations due to cancer Next Visit Focus/Plan Next Note Type Treatment Note Next Visit Plan global strengthening Gym machines/safety.Reassess quadruped core and postural strengthening. seated elliptical/recumbent bike for warm up/cool down global strengthening: neutral spine core in sitting- trial isometrics. stretch/calf stretch, leg press, step ups. UE strengthening: biceps curls, tricep curls, raises, Do not load heavily Balance with respect to neuropathy- modified single leg and balance activities for safety ( supine to sit with decreased velocity L and R side for HEP for core strength ) Chest in home sales representative pool noodle, no roller, or pec stretch in supine trial Avoid supine core and pelvic tilts
--- NOTE | 2024-12-24 14:52 | PT.OTN ---
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 and estrogen levels (12/24/24) Physical Therapy Treatment Note PT-OP-A Visit Information Start: 11/08/24 07:28 Freq: Status: Active Protocol: Document 12/24/24 09:03 NM (Rec: 12/24/24 10:44 NM [id number]) Out-Patient Physical Therapy Visit Information Visit Information Visit Type Treatment Note Visit Note KX after 19 visits BP L UE seated 139/86 bpm, 98% , 64 bpm Visit Start Time 09:03 Visit Stop Time 09:43 Visit Number 14 (03/26 PN) Evaluation Information Evaluation Date 11/08/24 Precautions Precautions Hx active cancer, including metastatic cancer to bones, cardiac stents, keeps nitroglyercin in L front pocket Monitor vitals No core supine, no pelvic tilts *metastasis to: R 2nd lateral rib, sternal manubrium, sternal body, R 5th rib head, R pubic root, L ischial tuberosity, R iliac crest* PT-OP-B Current Condition Start: 11/08/24 07:28 Freq: Status: Active Protocol: Document 11/08/24 07:34 NM (Rec: 11/08/24 09:05 NM [id number]) Current Condition History of Current Condition History of Current Condition Pt sent by Dr. Garrison for cancer-rehab therapy due to osteoporosis, weakness. Pt on hormone therapy, decreasing muscle mass. Pt gets yearly injections of reclast. Pt dx with cancer 2020, stage 4 adenocarcinoma; pt takes his pills every day. Pt has been steadily decreasing his activity due to fatigue, weakness. Pt is concerned about build upper body strength, getting up off of the floor (competitive shooting), standing up without putting hands on his knees, BLE weakness, balance ( visually dependent), gait. PMH includes 3 stents (2022), high blood pressure, fracture to L arm and collar bone. No falls but several near falls ( e.g. tripping over dog in dark ). Pt reports that he had an MRI yesterday, reports that he has a dilated ascending aorta (states cardiology reports PT ok) but pt concerned about. 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 States no pain following session; has not had any episodes for afib. Is wanting to know if an haitian website can be used for exercise progressions and to use for researching new exercises; states answers some questions then will provide a card with exercises and a description. PT-OP-D Balance Start: 11/08/24 10:48 Freq: Status: Active Protocol: Document 11/08/24 07:34 NM (Rec: 11/08/24 10:52 NM [id number]) Balance Tests Other Other Balance Tests Performed FGA: , indicating increased risk of falls PT-OP-E Functional Tests Start: 11/08/24 07:28 Freq: Status: Active Protocol: Document 11/08/24 07:34 NM (Rec: 11/08/24 09:05 NM [id number]) Functional Tests Five Times Sit to Stand Test Score unable PT-OP-F Manual Assessment Start: 11/08/24 07:28 Freq: Status: Active Protocol: Document 11/08/24 07:34 NM (Rec: 11/08/24 09:05 NM [id number]) Manual Assessments Joint Mobility Assessment Joint Mobility Assessment Tragus-Wall Measurement: 20 cm PT-OP-G Mobility & Gait Start: 11/08/24 07:28 Freq: Status: Active Protocol: Document 11/08/24 07:34 NM (Rec: 11/08/24 09:05 NM [id number]) OP Gait Assessment Gait Gait Assistance Required: Standby Assistance Distance (Feet) 150 Assistive Devices Assistive Device None Comments Gait Comments Demos increased trunk sway, slower gait speed. Narrow RODRI, minimal trunk rotation. PT-OP-K Range of Motion Start: 11/08/24 07:28 Freq: Status: Active Protocol: Document 11/08/24 07:34 NM (Rec: 11/08/24 10:52 NM [id number]) Elbow/Forearm Range of Motion Elbow/Forearm Right Elbow Flexion (degrees) 145 Elbow Hyperextension 10 Left Elbow Flexion (degrees) 145 Elbow Hyperextension 10 Wrist Goniometric Range of Motion Wrist Right Flexion Active (degrees) 55 Extension Active (degrees) 60 Left Flexion Active (degrees) 50 Extension Active (degrees) 60 PT-OP-L Special Tests Start: 11/08/24 10:48 Freq: Status: Active Protocol: Document 11/08/24 07:34 NM (Rec: 11/08/24 10:52 NM [id number]) Special Tests Neural Special Tests- Upper Body Phalen's Test Results - Upper Limb Tension Test Test Results + Comments median, radial, ulnar- bilaterally Elbow Flexion Test Test Results + PT-OP-M Strength Start: 11/08/24 07:28 Freq: Status: Active Protocol: Document 11/08/24 07:34 NM (Rec: 11/08/24 09:05 NM [id number]) Trunk Strength Trunk Manual Muscle Testing Testing Position standing Flexion 3+ Fair+ Extension 3+ Fair+ Rotation Left 3+ Fair+ Rotation Right 3+ Fair+ Lateral Flexion Left 3+ Fair+ Lateral Flexion Right 3+ Fair+ Comments Challenging to stabilize against resistance Shoulder Strength Shoulder Manual Muscle Testing Right Flexion 4- Good- Abduction (C5) 4- Good- Left Flexion 4- Good- Abduction (C5) 4- Good- Elbow/Forearm Strength Elbow and Forearm Manual Muscle Testing Right Flexion (C6) 4- Good- Extension (C7) 4- Good- Left Flexion (C6) 4- Good- Extension (C7) 4- Good- Wrist Strength Wrist Manual Muscle Testing Right Flexion (C7) 4 Good Extension (C6) 4 Good Left Flexion (C7) 4 Good Extension (C6) 4 Good Hip Strength Hip Manual Muscle Testing Right Flexion (L2) 4- Good- Extension (S1) 4- Good- Abduction 4- Good- Adduction 4- Good- Comments tested in sitting Left Flexion (L2) 4- Good- Extension (S1) 4- Good- Abduction 4- Good- Adduction 4- Good- Knee Strength Knee Manual Muscle Testing Right Flexion (S2) 4- Good- Extension (L3) 4- Good- Left Flexion (S2) 4- Good- Extension (L3) 4- Good- PT-OP-Q Treatments Start: 11/08/24 07:28 Freq: Status: Active Protocol: Document 12/24/24 09:03 NM (Rec: 12/24/24 10:44 NM [id number]) Gym Equipment Cable Column (Body Solid) hip abd Resistance level 3 Reps/Time 2x15, 3rd set 15 Shuttle Recovery calf raises Details 78 bpm; 1 min break btwn sets Resistance 50# > 75# Reps/Time 2x20 bilateral Details 65 bpm; 68 bpm; 1 min break btwn sets Resistance 75# Reps/Time 2x15, 3rd set 15 extremely fatiguing Therapeutic Exercises Sitting Exercises LAQ Sitting Exercise Name 1. bilateral, 2. unilateral Resistance 1. level 4 cables, 2. level 2 cables Reps/Minutes 1. 10, 2. 2x8 ea (LLE more challenging, feels weaker) Comments no pain but challenging; 68 bpm; 1 min break btwn sets Self-Care/Home Management Treatment Education Patient Education Home Exercise Program,Joint Protection,Pain Management, Safety Other Education 10 min- At this time, PT asked pt not to use website since no one is evaluating pt or determining appropriateness of exercises for pt. Will look at website with pt next session but recommending against at this time. Pt verbalizes understanding Educated on LE machines for gym with emphasis on positional safety (e.g. avoiding dependent position d/ t cardiac conditions. Education provided on positioning for comfort and safety. Recommended not using hamstring curl machine d/t hx of metastasis at ischial tuberosity, hip ADD marchine due to pubic root. Recommended continuing HEP, can perform some exercises prescribed at gym as well PT-OP-T Assessment and Plan Start: 11/08/24 07:28 Freq: Status: Active Protocol: Document 12/24/24 09:03 NM (Rec: 12/24/24 10:44 NM [id number]) Physical Therapy Assessment Goals Four Impairment difficulty w/ STS transfers, needs UE assist; difficulty w/ floor transfers Short Term Goal (STG) If appropriate, pt will be able to demonstrate at least 5 transfers from chair without UE assist in order to demonstrate increased BLE strength during transfers 12/06/24: 8 STS from standard chair wthout UE assist, maintains good body mechanics, no pain STG Duration 6 weeks MET Three Impairment tragus-wall test 20 cm, hx of osteoporosis; hx shooting for recreation Leading Firefighter Goal (LTG) Pt will be educated on neutral spinal posture during ADLs/ exercise and recreational activities in order to improve spinal biomechanics and safety 12/06/24: initiated in previous sessions with body mechanics training; progressing each session 12/13/24: posterior chain strengthening, neutral spine mechanics each session; wall- tragus test 16 cm 12/24/24: educated on posture/ positioning and safety during LE exercises for gym LTG Duration 8 weeks Two Impairment FGA 17/30, indicating increased risk of falls Short Term Goal (STG) Pt will be educated on fall risk reduction strategies due to hx of falls and near falls 12/06/24: issued today, educated during balance training STG Duration 3 weeks Leading Firefighter Goal (LTG) If appropriate, pt will improve FGA to >22/30 to demonstrate decreased fall risk 12/06/24: 24/30 LTG Duration 8 weeks MET One Impairment not performing HEP or exercise program Short Term Goal (STG) Pt will be educated on energy conservation techniques 12/06/24: initiated in PT 12/24/24: educated during sessions, particularly on reps in the tank method for RPE and reps progression education for appropriate reps /sets/resistance for HEP and gym STG Duration 3 weeks MET Leading Firefighter Goal (LTG) If appropriate, pt will be IND with HEP for carryover at home upon discharge LTG Duration 8 weeks Assessment Summary Assessment Pt provided education on LE machines for gym; pt then demonstrates on available machines and discussions about variations that are recommended for pt use in gym. Tolerates well but needs at least 1 min rest breaks during session due to fatigue. LLE weaker than RLE with all LE activities but especially knee extension. Educated on addition of past HEP exercises that can be added to gym routine intermittently but did not perform in session. PT continued with education regarding safety, posture/form , rate of perceived exertion, and reps/sets/resistance. Pt verbalizes improved understanding of education at end of session. PT and pt discussed discharge next session to maintenance program for continued strengthening as pt progressing toward goals Physical Therapy Plan Frequency and Duration Frequency of Treatment 2x/Week Duration of treatment (weeks) 8 Plan of Care Start Date 11/08/24 Plan of Care End Date 01/04/25 Therapeutic Interventions Therapeutic Interventions Balance Training,Canalithic Repositioning,Gait Training, Home Exercise Program,Manual Therapy,Neuromuscular Re- education,Orthotic/Prosthetic Management,Patient/Caregiver Education,Self-Care/Home Management,Sensory Integration ,Soft Tissue Mobilization, Taping,Therapeutic Activities, Therapeutic Exercises, Vestibular Rehabilitation Other Therapeutic Interventions no modalities or joint mobilizations due to cancer Next Visit Focus/Plan Next Note Type Discharge Summary Next Visit Plan global strengthening Assess goals, HEP, remaining exercises for gym Avoid supine core and pelvic tilts
--- NOTE | 2024-12-25 16:02 | PT-OP ANOTE ---
plan of care re-sent to referring provider in prep for discharge tomorrow
--- NOTE | 2024-12-26 15:45 | PT.OTN ---
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 (12/26/24) Physical Therapy Treatment Note PT-OP-A Visit Information Start: 11/08/24 07:28 Freq: Status: Active Protocol: Document 12/26/24 08:59 NM (Rec: 12/26/24 11:31 NM [id number]) Out-Patient Physical Therapy Visit Information Visit Information Visit Type Discharge Summary Visit Note KX after 19 visits BP L UE 127/73 bpm 96%, 71 bpm Visit Start Time 09:05 Visit Stop Time 09:50 Visit Number 15 Evaluation Information Evaluation Date 11/08/24 Precautions Precautions Hx active cancer, including metastatic cancer to bones, cardiac stents, keeps nitroglyercin in L front pocket Monitor vitals No core supine, no pelvic tilts *metastasis to: R 2nd lateral rib, sternal manubrium, sternal body, R 5th rib head, R pubic root, L ischial tuberosity, R iliac crest* PT-OP-B Current Condition Start: 11/08/24 07:28 Freq: Status: Active Protocol: Document 11/08/24 07:34 NM (Rec: 11/08/24 09:05 NM [id number]) Current Condition History of Current Condition History of Current Condition Pt sent by Dr. Garrison for cancer-rehab therapy due to osteoporosis, weakness. Pt on hormone therapy, decreasing muscle mass. Pt gets yearly injections of reclast. Pt dx with cancer 2020, stage 4 adenocarcinoma; pt takes his pills every day. Pt has been steadily decreasing his activity due to fatigue, weakness. Pt is concerned about build upper body strength, getting up off of the floor (competitive shooting), standing up without putting hands on his knees, BLE weakness, balance ( visually dependent), gait. PMH includes 3 stents (2022), high blood pressure, fracture to L arm and collar bone. No falls but several near falls ( e.g. tripping over dog in dark ). Pt reports that he had an MRI yesterday, reports that he has a dilated ascending aorta (states cardiology reports PT ok) but pt concerned about. 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 He states that he trapped himself under a bench, had trouble getting up because does not have a surface to get up. Wants something to translate over for HEP, get up from floor. PT-OP-D Balance Start: 11/08/24 10:48 Freq: Status: Active Protocol: Document 11/08/24 07:34 NM (Rec: 11/08/24 10:52 NM [id number]) Balance Tests Other Other Balance Tests Performed FGA: , indicating increased risk of falls PT-OP-E Functional Tests Start: 11/08/24 07:28 Freq: Status: Active Protocol: Document 11/08/24 07:34 NM (Rec: 11/08/24 09:05 NM [id number]) Functional Tests Five Times Sit to Stand Test Score unable PT-OP-F Manual Assessment Start: 11/08/24 07:28 Freq: Status: Active Protocol: Document 11/08/24 07:34 NM (Rec: 11/08/24 09:05 NM [id number]) Manual Assessments Joint Mobility Assessment Joint Mobility Assessment Tragus-Wall Measurement: 20 cm PT-OP-G Mobility & Gait Start: 11/08/24 07:28 Freq: Status: Active Protocol: Document 11/08/24 07:34 NM (Rec: 11/08/24 09:05 NM [id number]) OP Gait Assessment Gait Gait Assistance Required: Standby Assistance Distance (Feet) 150 Assistive Devices Assistive Device None Comments Gait Comments Demos increased trunk sway, slower gait speed. Narrow RODRI, minimal trunk rotation. PT-OP-K Range of Motion Start: 11/08/24 07:28 Freq: Status: Active Protocol: Document 11/08/24 07:34 NM (Rec: 11/08/24 10:52 NM [id number]) Elbow/Forearm Range of Motion Elbow/Forearm Right Elbow Flexion (degrees) 145 Elbow Hyperextension 10 Left Elbow Flexion (degrees) 145 Elbow Hyperextension 10 Wrist Goniometric Range of Motion Wrist Right Flexion Active (degrees) 55 Extension Active (degrees) 60 Left Flexion Active (degrees) 50 Extension Active (degrees) 60 PT-OP-L Special Tests Start: 11/08/24 10:48 Freq: Status: Active Protocol: Document 11/08/24 07:34 NM (Rec: 11/08/24 10:52 NM [id number]) Special Tests Neural Special Tests- Upper Body Phalen's Test Results - Upper Limb Tension Test Test Results + Comments median, radial, ulnar- bilaterally Elbow Flexion Test Test Results + PT-OP-M Strength Start: 11/08/24 07:28 Freq: Status: Active Protocol: Document 12/26/24 08:59 NM (Rec: 12/26/24 11:31 NM [id number]) Hip Strength Hip Manual Muscle Testing Right Flexion (L2) 4 Good Extension (S1) 4 Good Abduction 4 Good Adduction 4 Good Comments tested in sitting Left Flexion (L2) 4 Good Extension (S1) 4 Good Abduction 4 Good Adduction 4 Good Knee Strength Knee Manual Muscle Testing Right Flexion (S2) 4 Good Extension (L3) 4 Good Left Flexion (S2) 4- Good- Extension (L3) 4- Good- PT-OP-Q Treatments Start: 11/08/24 07:28 Freq: Status: Active Protocol: Document 12/26/24 08:59 NM (Rec: 12/26/24 11:31 NM [id number]) Therapeutic Exercises Prone Exercises bent over row Resistance 5# Equipment Used c/ knee support on chair Reps/Minutes 2x10 ea Comments cueing for hip hinge vs trunk flex; improved c/ reps posterior chain activation Prone Exercise Name did not perform in session but verbal review for bird dog Standing Exercises raises Standing Exercise Name 1. front raise, 2. lateral raise Side bilateral Resistance 8# Reps/Minutes 2x10 Comments initial cueing for form; improved with reps biceps curls Standing Exercise Name 1. seated, 2. standing Side bilateral Resistance 8# db Reps/Minutes 2x10 ea Comments edu full ROM vs shortened ROM pros/cons for gym wall posture Standing Exercise Name cervical retraction and scapular retraction Side bilateral Reps/Minutes 8 ea Comments 13 cm tragus-wall lunge Side bilateral Reps/Minutes 10 squats Standing Exercise Name progression to chair c/ slight hover Side bilateral Reps/Minutes 15 Comments challenging; cued more hip hinge, less trunk flex wall squat Standing Exercise Name edu can transition from wall to hover squat near bar for hand support Comments did not perform in session Therapeutic Activity Therapeutic Activity body mechanics Reps/Minutes 15 min Comments 1. lunge with near hand support cueing to limit depth due to challenge to return to standing position, improved with reps 2. floor transfer with UE assist via supported lunge 3. Education and final handouts issued on body mechanics with ADLs, in addition to verbal/visual review/demonstration with pt ( pt demos): (a) lifting/carrying/bending (b) gym and exercise (c) pt shooting (pt plans to continue shooting in prone/ sitting/kneeling/standing). PT recommended and had pt demo more ergonomic and spinal safe options but pt not amenable to options despite education. PT recommend pt reach out to surgeon to address any concerns or limitations 4. Education on exercise schedule and energy modification/management (a) recommendation for 2-3x/wk exercise schedule with rest days between, modify based on current ADLs/scheduled activities. If adding new exercise/activity, then allow for ample rest time and modify activities to allow body to adjust as needed even if needs multiple days depending on pt tolerance Self-Care/Home Management Treatment Education Patient Education Home Exercise Program,Joint Protection,Pain Management, Safety Other Education 10 min - Pt and PT looked at and assessed pt researched website for exercise progressions. PT recommended against use, providing pt with rationale due to no formal assessment by a skilled/ licensed practitioner, unable to tailor to pt specifically, no ability to adjust or modify for precautions or safety. Instead PT reviewed HEP with pt as provides several different variations of exercises along with progressions, providing both bands and weighted progression options to pt. Reviewed previous education regarding reps/sets/resistance and rest. Pt verbalized understanding based on PT education. PT-OP-T Assessment and Plan Start: 11/08/24 07:28 Freq: Status: Active Protocol: Document 12/26/24 08:59 NM (Rec: 12/26/24 11:31 NM [id number]) Physical Therapy Assessment Goals Four Impairment difficulty w/ STS transfers, needs UE assist; difficulty w/ floor transfers Short Term Goal (STG) If appropriate, pt will be able to demonstrate at least 5 transfers from chair without UE assist in order to demonstrate increased BLE strength during transfers 12/06/24: 8 STS from standard chair wthout UE assist, maintains good body mechanics, no pain STG Duration 6 weeks MET Three Impairment tragus-wall test 20 cm, hx of osteoporosis; hx shooting for recreation Senior Care Goal (LTG) Pt will be educated on neutral spinal posture during ADLs/ exercise and recreational activities in order to improve spinal biomechanics and safety 12/06/24: initiated in previous sessions with body mechanics training; progressing each session 12/13/24: posterior chain strengthening, neutral spine mechanics each session; wall- tragus test 16 cm 12/24/24: educated on posture/ positioning and safety during LE exercises for gym 12/26/24: issued HO reviewing neutral spinal mechanics for ADLs. 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) If appropriate, pt will improve FGA to >22/30 to demonstrate decreased fall risk 12/06/24: 24/30 LTG Duration 8 weeks MET One Impairment not performing HEP or exercise program Short Term Goal (STG) Pt will be educated on energy conservation techniques 12/06/24: initiated in PT 12/24/24: educated during sessions, particularly on reps in the tank method for RPE and reps progression education for appropriate reps /sets/resistance for HEP and gym STG Duration 3 weeks MET Senior Care Goal (LTG) If appropriate, pt will be IND with HEP for carryover at home upon discharge 12/26/24: Pt compliant with HEP LTG Duration 8 weeks MET Progress Towards Goals Progress Towards Goals Goals Met Assessment Summary Assessment Extensive time spent on education and final review of body mechanics, strength training and expected timelines, etc. Pt verbalizes understanding following education; however, still reports that he is planning to pursue activities (e.g. shooting on floor or in rotated position) since he doesn't do them often. Progressed resistance with some UE exercises with decreased reps. Cueing still needed occasionally to limit excess trunk flexion and emphasize more hip hinge position for spinal safety. Pt fatigues quickly with lunge and squat depth progression; cueing needed for correct execution over increased depth . Physical Therapy Plan Frequency and Duration Frequency of Treatment 2x/Week Duration of treatment (weeks) 8 Plan of Care Start Date 11/08/24 Plan of Care End Date 01/04/25 Therapeutic Interventions Therapeutic Interventions Balance Training,Canalithic Repositioning,Gait Training, Home Exercise Program,Manual Therapy,Neuromuscular Re- education,Orthotic/Prosthetic Management,Patient/Caregiver Education,Self-Care/Home Management,Sensory Integration ,Soft Tissue Mobilization, Taping,Therapeutic Activities, Therapeutic Exercises, Vestibular Rehabilitation Other Therapeutic Interventions no modalities or joint mobilizations due to cancer Discharge Physical Therapy Discharge Reasons Goals Met Discharge Comments Pt has met all PT goals. Demos understanding of body mechanics, spinal safety, and is compliant with HEP. PT and pt discussed discharge to HEP maintenance strengthening program to be perform 2-3x/wk with alternating UE/LE. Pt and PT in agreement about HEP and discharge. Next Visit Focus/Plan Next Note Type Discharge Summary Next Visit Plan discharge from PT
--- NOTE | 2024-12-26 15:46 | PT.OPDS ---
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 Address: [address] [place] [address], [id number] Email: [email or web address] Berrios MD Family Provider Non-Staff Specialty: [facility] Address: [address] [place] [address], [id number] Email: [email or web address] Thea Garrison MD Attending Provider Non-Staff Referring Provider Specialty: [facility] Address: [address] [place] [address] [address], [place], [address] Email: Visit Number Visit Number 15 Discharge Summary PT-OP-B Current Condition Start: 11/08/24 07:28 Freq: Status: Active Protocol: Document 11/08/24 07:34 NM (Rec: 11/08/24 09:05 NM [id number]) Current Condition History of Current Condition History of Current Condition Pt sent by Dr. Garrison for cancer-rehab therapy due to osteoporosis, weakness. Pt on hormone therapy, decreasing muscle mass. Pt gets yearly injections of reclast. Pt dx with cancer 2020, stage 4 adenocarcinoma; pt takes his pills every day. Pt has been steadily decreasing his activity due to fatigue, weakness. Pt is concerned about build upper body strength, getting up off of the floor (competitive shooting), standing up without putting hands on his knees, BLE weakness, balance ( visually dependent), gait. PMH includes 3 stents (2022), high blood pressure, fracture to L arm and collar bone. No falls but several near falls ( e.g. tripping over dog in dark ). Pt reports that he had an MRI yesterday, reports that he has a dilated ascending aorta (states cardiology reports PT ok) but pt concerned about. Pt has mets to 7 areas, unsure where except R hip Treatment Goals Patient/Caregiver Goals wants to improve ability to transfer to/from floor, transfer to/from chair without UE support, increase BLE and BUE strength, improve balance PT-OP-C Subjective Start: 11/08/24 07:28 Freq: Status: Active Protocol: Document 12/26/24 08:59 NM (Rec: 12/26/24 11:31 NM [id number]) OP-PT Subjective Patient Comments Patient Comments No changes since last session. He states that he trapped himself under a bench, had trouble getting up because does not have a surface to get up. Wants something to translate over for HEP, get up from floor. PT-OP-D Balance Start: 11/08/24 10:48 Freq: Status: Active Protocol: Document 11/08/24 07:34 NM (Rec: 11/08/24 10:52 NM [id number]) Balance Tests Other Other Balance Tests Performed FGA: , indicating increased risk of falls PT-OP-E Functional Tests Start: 11/08/24 07:28 Freq: Status: Active Protocol: Document 11/08/24 07:34 NM (Rec: 11/08/24 09:05 NM [id number]) Functional Tests Five Times Sit to Stand Test Score unable PT-OP-F Manual Assessment Start: 11/08/24 07:28 Freq: Status: Active Protocol: Document 11/08/24 07:34 NM (Rec: 11/08/24 09:05 NM [id number]) Manual Assessments Joint Mobility Assessment Joint Mobility Assessment Tragus-Wall Measurement: 20 cm PT-OP-G Mobility & Gait Start: 11/08/24 07:28 Freq: Status: Active Protocol: Document 11/08/24 07:34 NM (Rec: 11/08/24 09:05 NM [id number]) OP Gait Assessment Gait Gait Assistance Required: Standby Assistance Distance (Feet) 150 Assistive Devices Assistive Device None Comments Gait Comments Demos increased trunk sway, slower gait speed. Narrow RODRI, minimal trunk rotation. PT-OP-K Range of Motion Start: 11/08/24 07:28 Freq: Status: Active Protocol: Document 11/08/24 07:34 NM (Rec: 11/08/24 10:52 NM [id number]) Elbow/Forearm Range of Motion Elbow/Forearm Right Elbow Flexion (degrees) 145 Elbow Hyperextension 10 Left Elbow Flexion (degrees) 145 Elbow Hyperextension 10 Wrist Goniometric Range of Motion Wrist Right Flexion Active (degrees) 55 Extension Active (degrees) 60 Left Flexion Active (degrees) 50 Extension Active (degrees) 60 PT-OP-L Special Tests Start: 11/08/24 10:48 Freq: Status: Active Protocol: Document 11/08/24 07:34 NM (Rec: 11/08/24 10:52 NM [id number]) Special Tests Neural Special Tests- Upper Body Phalen's Test Results - Upper Limb Tension Test Test Results + Comments median, radial, ulnar- bilaterally Elbow Flexion Test Test Results + PT-OP-M Strength Start: 11/08/24 07:28 Freq: Status: Active Protocol: Document 12/26/24 08:59 NM (Rec: 12/26/24 11:31 NM [id number]) Hip Strength Hip Manual Muscle Testing Right Flexion (L2) 4 Good Extension (S1) 4 Good Abduction 4 Good Adduction 4 Good Comments tested in sitting Left Flexion (L2) 4 Good Extension (S1) 4 Good Abduction 4 Good Adduction 4 Good Knee Strength Knee Manual Muscle Testing Right Flexion (S2) 4 Good Extension (L3) 4 Good Left Flexion (S2) 4- Good- Extension (L3) 4- Good- PT-OP-T Assessment and Plan Start: 11/08/24 07:28 Freq: Status: Active Protocol: Document 12/26/24 08:59 NM (Rec: 12/26/24 11:31 NM [id number]) Physical Therapy Assessment Goals Four Impairment difficulty w/ STS transfers, needs UE assist; difficulty w/ floor transfers Short Term Goal (STG) If appropriate, pt will be able to demonstrate at least 5 transfers from chair without UE assist in order to demonstrate increased BLE strength during transfers 12/06/24: 8 STS from standard chair wthout UE assist, maintains good body mechanics, no pain STG Duration 6 weeks MET Three Impairment tragus-wall test 20 cm, hx of osteoporosis; hx shooting for recreation Synchro Assembler Goal (LTG) Pt will be educated on neutral spinal posture during ADLs/ exercise and recreational activities in order to improve spinal biomechanics and safety 12/06/24: initiated in previous sessions with body mechanics training; progressing each session 12/13/24: posterior chain strengthening, neutral spine mechanics each session; wall- tragus test 16 cm 12/24/24: educated on posture/ positioning and safety during LE exercises for gym 12/26/24: issued HO reviewing neutral spinal mechanics for ADLs. LTG Duration 8 weeks MET Two Impairment FGA 17/30, indicating increased risk of falls Short Term Goal (STG) Pt will be educated on fall risk reduction strategies due to hx of falls and near falls 12/06/24: issued today, educated during balance training STG Duration 3 weeks Synchro Assembler Goal (LTG) If appropriate, pt will improve FGA to >22/30 to demonstrate decreased fall risk 12/06/24: 24/30 LTG Duration 8 weeks MET One Impairment not performing HEP or exercise program Short Term Goal (STG) Pt will be educated on energy conservation techniques 12/06/24: initiated in PT 12/24/24: educated during sessions, particularly on reps in the tank method for RPE and reps progression education for appropriate reps /sets/resistance for HEP and gym STG Duration 3 weeks MET Synchro Assembler Goal (LTG) If appropriate, pt will be IND with HEP for carryover at home upon discharge 12/26/24: Pt compliant with HEP LTG Duration 8 weeks MET Progress Towards Goals Progress Towards Goals Goals Met Assessment Summary Assessment Pt has been seen x14 visits following evaluation for weakness and spinal mechanics related to osteoporosis. Pt has been educated extensively on safety with ADLs/IADLs and recreational activities, spinal mechanics, and provided an HEP for continued BUE and BLE strengthening at home and with gym if pt chooses to transition. Pt still needs occasional cueing for exercises execution for safety but this has decreased with depth. Pt does demonstrate improvements in strength, transfers, and understanding of safety/body mechanics limitations. Physical Therapy Plan Frequency and Duration Frequency of Treatment 2x/Week Duration of treatment (weeks) 8 Plan of Care Start Date 11/08/24 Plan of Care End Date 01/04/25 Therapeutic Interventions Therapeutic Interventions Balance Training,Canalithic Repositioning,Gait Training, Home Exercise Program,Manual Therapy,Neuromuscular Re- education,Orthotic/Prosthetic Management,Patient/Caregiver Education,Self-Care/Home Management,Sensory Integration ,Soft Tissue Mobilization, Taping,Therapeutic Activities, Therapeutic Exercises, Vestibular Rehabilitation Other Therapeutic Interventions no modalities or joint mobilizations due to cancer Discharge Physical Therapy Discharge Reasons Goals Met Discharge Comments Pt has met all PT goals. Demos understanding of body mechanics, spinal safety, and is compliant with HEP. PT and pt discussed discharge to HEP maintenance strengthening program to be perform 2-3x/wk with alternating UE/LE. Pt and PT in agreement about HEP and discharge. Next Visit Focus/Plan Next Note Type Discharge Summary Next Visit Plan discharge from PT
--- NOTE | 2024-12-27 08:51 | PT.OTN ---
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 and estrogen levels (12/26/24) Physical Therapy Treatment Note PT-OP-A Visit Information Start: 11/08/24 07:28 Freq: Status: Active Protocol: Document 12/26/24 08:59 NM (Rec: 12/26/24 11:31 NM [id number]) Out-Patient Physical Therapy Visit Information Visit Information Visit Type Discharge Summary Visit Note KX after 19 visits BP L UE 127/73 bpm 96%, 71 bpm Visit Start Time 09:05 Visit Stop Time 09:50 Visit Number 15 Evaluation Information Evaluation Date 11/08/24 Precautions Precautions Hx active cancer, including metastatic cancer to bones, cardiac stents, keeps nitroglyercin in L front pocket Monitor vitals No core supine, no pelvic tilts *metastasis to: R 2nd lateral rib, sternal manubrium, sternal body, R 5th rib head, R pubic root, L ischial tuberosity, R iliac crest* PT-OP-B Current Condition Start: 11/08/24 07:28 Freq: Status: Active Protocol: Document 11/08/24 07:34 NM (Rec: 11/08/24 09:05 NM [id number]) Current Condition History of Current Condition History of Current Condition Pt sent by Dr. Garrison for cancer-rehab therapy due to osteoporosis, weakness. Pt on hormone therapy, decreasing muscle mass. Pt gets yearly injections of reclast. Pt dx with cancer 2020, stage 4 adenocarcinoma; pt takes his pills every day. Pt has been steadily decreasing his activity due to fatigue, weakness. Pt is concerned about build upper body strength, getting up off of the floor (competitive shooting), standing up without putting hands on his knees, BLE weakness, balance ( visually dependent), gait. PMH includes 3 stents (2022), high blood pressure, fracture to L arm and collar bone. No falls but several near falls ( e.g. tripping over dog in dark ). Pt reports that he had an MRI yesterday, reports that he has a dilated ascending aorta (states cardiology reports PT ok) but pt concerned about. Pt has mets to 7 areas, unsure where except R hip Treatment Goals Patient/Caregiver Goals wants to improve ability to transfer to/from floor, transfer to/from chair without UE support, increase BLE and BUE strength, improve balance PT-OP-C Subjective Start: 11/08/24 07:28 Freq: Status: Active Protocol: Document 12/26/24 08:59 NM (Rec: 12/26/24 11:31 NM [id number]) OP-PT Subjective Patient Comments Patient Comments No changes since last session. He states that he trapped himself under a bench, had trouble getting up because does not have a surface to get up. Wants something to translate over for HEP, get up from floor. PT-OP-D Balance Start: 11/08/24 10:48 Freq: Status: Active Protocol: Document 11/08/24 07:34 NM (Rec: 11/08/24 10:52 NM [id number]) Balance Tests Other Other Balance Tests Performed FGA: , indicating increased risk of falls PT-OP-E Functional Tests Start: 11/08/24 07:28 Freq: Status: Active Protocol: Document 11/08/24 07:34 NM (Rec: 11/08/24 09:05 NM [id number]) Functional Tests Five Times Sit to Stand Test Score unable PT-OP-F Manual Assessment Start: 11/08/24 07:28 Freq: Status: Active Protocol: Document 11/08/24 07:34 NM (Rec: 11/08/24 09:05 NM [id number]) Manual Assessments Joint Mobility Assessment Joint Mobility Assessment Tragus-Wall Measurement: 20 cm PT-OP-G Mobility & Gait Start: 11/08/24 07:28 Freq: Status: Active Protocol: Document 11/08/24 07:34 NM (Rec: 11/08/24 09:05 NM [id number]) OP Gait Assessment Gait Gait Assistance Required: Standby Assistance Distance (Feet) 150 Assistive Devices Assistive Device None Comments Gait Comments Demos increased trunk sway, slower gait speed. Narrow RODRI, minimal trunk rotation. PT-OP-K Range of Motion Start: 11/08/24 07:28 Freq: Status: Active Protocol: Document 11/08/24 07:34 NM (Rec: 11/08/24 10:52 NM [id number]) Elbow/Forearm Range of Motion Elbow/Forearm Right Elbow Flexion (degrees) 145 Elbow Hyperextension 10 Left Elbow Flexion (degrees) 145 Elbow Hyperextension 10 Wrist Goniometric Range of Motion Wrist Right Flexion Active (degrees) 55 Extension Active (degrees) 60 Left Flexion Active (degrees) 50 Extension Active (degrees) 60 PT-OP-L Special Tests Start: 11/08/24 10:48 Freq: Status: Active Protocol: Document 11/08/24 07:34 NM (Rec: 11/08/24 10:52 NM [id number]) Special Tests Neural Special Tests- Upper Body Phalen's Test Results - Upper Limb Tension Test Test Results + Comments median, radial, ulnar- bilaterally Elbow Flexion Test Test Results + PT-OP-M Strength Start: 11/08/24 07:28 Freq: Status: Active Protocol: Document 12/26/24 08:59 NM (Rec: 12/26/24 11:31 NM [id number]) Hip Strength Hip Manual Muscle Testing Right Flexion (L2) 4 Good Extension (S1) 4 Good Abduction 4 Good Adduction 4 Good Comments tested in sitting Left Flexion (L2) 4 Good Extension (S1) 4 Good Abduction 4 Good Adduction 4 Good Knee Strength Knee Manual Muscle Testing Right Flexion (S2) 4 Good Extension (L3) 4 Good Left Flexion (S2) 4- Good- Extension (L3) 4- Good- PT-OP-Q Treatments Start: 11/08/24 07:28 Freq: Status: Active Protocol: Document 12/26/24 08:59 NM (Rec: 12/26/24 11:31 NM [id number]) Therapeutic Exercises Prone Exercises bent over row Resistance 5# Equipment Used c/ knee support on chair Reps/Minutes 2x10 ea Comments cueing for hip hinge vs trunk flex; improved c/ reps posterior chain activation Prone Exercise Name did not perform in session but verbal review for bird dog Standing Exercises raises Standing Exercise Name 1. front raise, 2. lateral raise Side bilateral Resistance 8# Reps/Minutes 2x10 Comments initial cueing for form; improved with reps biceps curls Standing Exercise Name 1. seated, 2. standing Side bilateral Resistance 8# db Reps/Minutes 2x10 ea Comments edu full ROM vs shortened ROM pros/cons for gym wall posture Standing Exercise Name cervical retraction and scapular retraction Side bilateral Reps/Minutes 8 ea Comments 13 cm tragus-wall lunge Side bilateral Reps/Minutes 10 squats Standing Exercise Name progression to chair c/ slight hover Side bilateral Reps/Minutes 15 Comments challenging; cued more hip hinge, less trunk flex wall squat Standing Exercise Name edu can transition from wall to hover squat near bar for hand support Comments did not perform in session Therapeutic Activity Therapeutic Activity body mechanics Reps/Minutes 15 min Comments 1. lunge with near hand support cueing to limit depth due to challenge to return to standing position, improved with reps 2. floor transfer with UE assist via supported lunge 3. Education and final handouts issued on body mechanics with ADLs, in addition to verbal/visual review/demonstration with pt ( pt demos): (a) lifting/carrying/bending (b) gym and exercise (c) pt shooting (pt plans to continue shooting in prone/ sitting/kneeling/standing). PT recommended and had pt demo more ergonomic and spinal safe options but pt not amenable to options despite education. PT recommend pt reach out to surgeon to address any concerns or limitations 4. Education on exercise schedule and energy modification/management (a) recommendation for 2-3x/wk exercise schedule with rest days between, modify based on current ADLs/scheduled activities. If adding new exercise/activity, then allow for ample rest time and modify activities to allow body to adjust as needed even if needs multiple days depending on pt tolerance Self-Care/Home Management Treatment Education Patient Education Home Exercise Program,Joint Protection,Pain Management, Safety Other Education 10 min - Pt and PT looked at and assessed pt researched website for exercise progressions. PT recommended against use, providing pt with rationale due to no formal assessment by a skilled/ licensed practitioner, unable to tailor to pt specifically, no ability to adjust or modify for precautions or safety. Instead PT reviewed HEP with pt as provides several different variations of exercises along with progressions, providing both bands and weighted progression options to pt. Reviewed previous education regarding reps/sets/resistance and rest. Pt verbalized understanding based on PT education. PT-OP-T Assessment and Plan Start: 11/08/24 07:28 Freq: Status: Active Protocol: Document 12/26/24 08:59 NM (Rec: 12/26/24 11:31 NM [id number]) Physical Therapy Assessment Goals Four Impairment difficulty w/ STS transfers, needs UE assist; difficulty w/ floor transfers Short Term Goal (STG) If appropriate, pt will be able to demonstrate at least 5 transfers from chair without UE assist in order to demonstrate increased BLE strength during transfers 12/06/24: 8 STS from standard chair wthout UE assist, maintains good body mechanics, no pain STG Duration 6 weeks MET Three Impairment tragus-wall test 20 cm, hx of osteoporosis; hx shooting for recreation Mcc Goal (LTG) Pt will be educated on neutral spinal posture during ADLs/ exercise and recreational activities in order to improve spinal biomechanics and safety 12/06/24: initiated in previous sessions with body mechanics training; progressing each session 12/13/24: posterior chain strengthening, neutral spine mechanics each session; wall- tragus test 16 cm 12/24/24: educated on posture/ positioning and safety during LE exercises for gym 12/26/24: issued HO reviewing neutral spinal mechanics for ADLs. LTG Duration 8 weeks MET Two Impairment FGA 17/30, indicating increased risk of falls Short Term Goal (STG) Pt will be educated on fall risk reduction strategies due to hx of falls and near falls 12/06/24: issued today, educated during balance training STG Duration 3 weeks Floral Designer Salesperson Goal (LTG) If appropriate, pt will improve FGA to >22/30 to demonstrate decreased fall risk 12/06/24: 24/30 LTG Duration 8 weeks MET One Impairment not performing HEP or exercise program Short Term Goal (STG) Pt will be educated on energy conservation techniques 12/06/24: initiated in PT 12/24/24: educated during sessions, particularly on reps in the tank method for RPE and reps progression education for appropriate reps /sets/resistance for HEP and gym STG Duration 3 weeks MET Mcc Goal (LTG) If appropriate, pt will be IND with HEP for carryover at home upon discharge 12/26/24: Pt compliant with HEP LTG Duration 8 weeks MET Progress Towards Goals Progress Towards Goals Goals Met Assessment Summary Assessment Extensive time spent on education and final review of body mechanics, strength training and expected timelines, etc. Pt verbalizes understanding following education; however, still reports that he is planning to pursue activities (e.g. shooting on floor or in rotated position) since he doesn't do them often. Progressed resistance with some UE exercises with decreased reps. Cueing still needed occasionally to limit excess trunk flexion and emphasize more hip hinge position for spinal safety. Pt fatigues quickly with lunge and squat depth progression; cueing needed for correct execution over increased depth . Physical Therapy Plan Frequency and Duration Frequency of Treatment 2x/Week Duration of treatment (weeks) 8 Plan of Care Start Date 11/08/24 Plan of Care End Date 01/04/25 Therapeutic Interventions Therapeutic Interventions Balance Training,Canalithic Repositioning,Gait Training, Home Exercise Program,Manual Therapy,Neuromuscular Re- education,Orthotic/Prosthetic Management,Patient/Caregiver Education,Self-Care/Home Management,Sensory Integration ,Soft Tissue Mobilization, Taping,Therapeutic Activities, Therapeutic Exercises, Vestibular Rehabilitation Other Therapeutic Interventions no modalities or joint mobilizations due to cancer Discharge Physical Therapy Discharge Reasons Goals Met Discharge Comments Pt has met all PT goals. Demos understanding of body mechanics, spinal safety, and is compliant with HEP. PT and pt discussed discharge to HEP maintenance strengthening program to be perform 2-3x/wk with alternating UE/LE. Pt and PT in agreement about HEP and discharge. Next Visit Focus/Plan Next Note Type Discharge Summary Next Visit Plan discharge from PT
== END 2024-12-27 11:27 | disposition home or self-care (01) ==
LOC: PHYS 09:00
PROVIDERS: Family Provider Family Medicine; PCP Family Medicine; Referring Provider Student in an Organized Health Care Education/Training Program; Visit Provider Student in an Organized Health Care Education/Training Program
DX: M81.0 Age-related osteoporosis without current pathological fracture (principal); Z74.09 Other reduced mobility; R53.81 Other malaise; C61 Malignant neoplasm of prostate; C79.51 Secondary malignant neoplasm of bone; Z79.818 Long term (current) use of other agents affecting estrogen receptors and estrogen levels; R63.4 Abnormal weight loss; G56.23 Lesion of ulnar nerve, bilateral upper limbs; R53.1 Weakness; R27.8 Other lack of coordination; R26.89 Other abnormalities of gait and mobility
CPT/HCPCS: 97110; 97112; 97162; 97530; 97535

== ENCOUNTER → 2025-02-06 10:51 | Outpatient (ROUT) | payer MEDICARE, OTHER, SELFPAY ==
[2025-02-06 11:38] LABS: COVID-19 CEPHEID 4-PLEX PCR Negative (Negative); Influenza A - CEPHEID Flu A NEGATIVE (NEGATIVE); Influenza B - CEPHEID Flu B NEGATIVE (NEGATIVE); Respiratory Syncytial Virus Negative (Negative)
== END ==
LOC: LAB 10:52
PROVIDERS: Family Provider Family Medicine; PCP Family Medicine; Visit Provider Family Medicine
DX: R50.9 Fever, unspecified (principal); R52 Pain, unspecified
CPT/HCPCS: 0241U

== ENCOUNTER 2025-02-25 18:09 | Emergency (ER) | payer MEDICARE, OTHER, SELFPAY ==
[2025-02-25] VITALS (7 sets, daily range): BP systolic 146–165; BP diastolic 79–102; PULSE 78–94; RESP 16–19; TEMP 38.7; O2SAT 95–98; BMI 25.0
--- NOTE | 2025-02-25 18:30 | EKG_ITS ---
[facility] [address] [place] [address] Test Date: 2025-02-25 Pat Name: Clarence Flowers Department: [facility] Room: Gender: Male Deck Hand: kriss : 1955 Requested By: Order Number: [id number] Reading MD: Christ Meléndez MD Measurements Intervals [place] Rate: 82 P: 46 IN: 206 QRS: -47 QRSD: 92 T: 68 QT: 362 QTc: 422 Interpretive Statements Normal sinus rhythm Left anterior fascicular block Nonspecific T wave abnormality Electronically Signed On 02-26-2025 7:43:14 PDT by Christ Meléndez MD
--- NOTE | 2025-02-25 18:30 | DI.RAD.S_ITS ---
PROCEDURE: XR CHEST 1V INDICATIONS: suspected sepsis TECHNIQUE: One view of the chest was acquired. COMPARISON: [facility], CR, XR CHEST 1V, 09/17/2022, 12:22. FINDINGS: Surgical changes and devices: None. Lungs and pleura: No definite focal infiltrate. No pleural effusions or pneumothorax. Mediastinum: Tortuous thoracic aorta. Heart size is enlarged. Bones and chest wall: No suspicious bony lesions. Overlying soft tissues appear unremarkable. IMPRESSION: Cardiomegaly and mildly tortuous thoracic aorta. No focal infiltrate, pleural effusion or pneumothorax. Dictated by: Ascencion Finch M.D. on 02/25/2025 at 19:56 Approved by: Ascencion Finch M.D. on 02/25/2025 at 19:56
[2025-02-25 18:59] LABS: Add Manual Diff / Slide Review NO; Basophils Absolute Auto 0 /uL (0-100); Eosinophils Absolute Auto 0 /uL (0-450); Eosinophils Percent Auto 1.2 % (2-4); Hematocrit 35.5 % (41-53); Hemoglobin 12.2 g/dL (13.5-17.5); Lymphocytes Absolute Auto 500 /uL (1100-4500); Lymphocytes Percent Auto 17.6 % (25-40); Mean Corpuscular HGB Conc 34.5 % (30-36); Mean Corpuscular Hemoglobin 32.4 PG (26-34); Mean Corpuscular Volume 94.1 fL (80-100); Monocytes Absolute Auto 600 /uL (0-900); Monocytes Percent Auto 20.9 % (3-14); Neutrophils Absolute Auto 1800 /uL (1500-7000); Neutrophils Percent Auto 59.3 % (50-75); Platelet Count 188 X10^3/uL (150-400); Red Blood Cell Count 3.77 X10^6/uL (4.5-5.9); Red Cell Distribution Width 12.4 % (11.6-14.8); White Blood Cell Count 3.1 X10^3/uL (4.5-11.0)
[2025-02-25] MEDS: SODIUM CHLORIDE 0.9% 1,000 ML 1000 ML IV (19:02)
[2025-02-25 19:06] LABS: INR 1.4 (0.9-1.3); Prothrombin Time 15.4 SECONDS (9.4-12.5)
[2025-02-25 19:09] LABS: PTT Partial Thromboplastin Tim 40 SECONDS (25.1-36.5)
[2025-02-25 19:12] LABS: Alanine Aminotransferase 50 IU/L (<50); Albumin 3.5 g/dL (3.5-5.0); Albumin Globulin Ratio 1.4 (1.0-2.8); Alkaline Phosphatase 118 U/L (38-126); Aspartate Aminotransferase 112 IU/L (17-59); BUN Creatinine Ratio 16.5 (6-22); Bilirubin Total 1.1 mg/dL (0.2-1.3); Blood Urea Nitrogen 13 mg/dL (9-20); Calcium 8.4 mg/dL (8.4-10.2); Carbon Dioxide 26 mmol/L (22-32); Chloride 103 mmol/L (98-107); Estimated Glomerular Filt Rate > 60 mL/min (>60); Globulin 2.5 g/dL (1.7-4.1); Glucose 117 mg/dL (70-99); HEMOLYSIS < 15 (0-50); Lactate (Lactic Acid) 1.2 mmol/L (0.7-2.1); Lipase 80 U/L (23-300); Sodium 135 mmol/L (137-145)
[2025-02-25 19:28] LABS: Procalcitonin 0.138 ng/mL (<0.5)
[2025-02-25 19:44] LABS: Appearance Urine UA CLEAR; Bilirubin Urine UA NEGATIVE (NEGATIVE); Color Urine UA YELLOW; Glucose Urine UA NEGATIVE (Negative); Ketones Urine UA NEGATIVE (NEGATIVE); Leukocyte Esterase Urine UA NEGATIVE (NEGATIVE); Nitrite Urine UA NEGATIVE (Negative); Occult Blood Urine UA NEGATIVE (Negative); Protein Urine UA NEGATIVE (Negative); Specific Gravity Urine UA 1.025 (1.000-1.035); Urobilinogen Urine UA 0.2 E.U./dL (0.2); pH Urine UA 5.5 (4.5-8.0)
[2025-02-25 19:45] LABS: Influenza A - CEPHEID Flu A NEGATIVE (NEGATIVE); Influenza B - CEPHEID Flu B NEGATIVE (NEGATIVE); Respiratory Syncytial Virus Negative (Negative)
[2025-02-25 19:51] LABS: COVID-19 CEPHEID 4-PLEX PCR POSITIVE (Negative)
[2025-02-25 19:53] LABS: Bacteria Urine Occasional (0-1); Calcium Oxalate Crystals Urine Moderate; Culture Indicated Urine Cult Not Indicated; RBC Urine None Seen (0-5/HPF); Squamous Epithelial Cell Urine 0-1 /HPF (0-5/HPF); Urine Volume 10mL (spun); WBC Urine 0-1/HPF (0-5/HPF)
--- NOTE | 2025-02-25 20:38 | ED.GENADULT ---
HPI - General Adult General Chief complaint: Fever Stated complaint: muscle aches, dizziness, HASSAN, syncope x 2days Time Seen by Provider: 02/25/25 18:51 Source: patient Mode of arrival: Ambulatory History of Present Illness HPI narrative: 69-year-old male with history of metastatic prostate cancer to the bone, hormone treatment, oncology care through [facility], 3 weeks ago had E coli urine infection treated with antibiotics that seemed to get better, now with 2 days duration of dry cough and fever to 103-104 at home yesterday, muscle aches. Denies chest pain or shortness of breath. He has received COVID vaccination primary series [employer], multiple boosters, last COVID booster fall 2023. Related Data Home Medications Medication Instructions Recorded Confirmed aspirin 81 mg tablet 81 mg PO DAILY 09/17/22 09/17/22 atorvastatin 40 mg tablet 40 mg PO DAILY 09/17/22 09/17/22 calcium citrate 250 mg PO QID 09/17/22 09/17/22 clopidogrel 75 mg tablet 75 mg PO DAILY 09/17/22 09/17/22 ferrous fumarate-ascorbic 1 tab PO DAILY 09/17/22 09/17/22 acid-ascorbate sod 65 mg iron-125 mg tablet meloxicam 15 mg tablet 15 mg PO DAILY PRN Pain (Scale 09/17/22 09/17/22 Score 4-6) metoprolol succinate 25 mg 25 mg PO DAILY 09/17/22 09/17/22 tablet,extended release 24 hr multivitamin-ferrous sulfate 18 mg 1 tab PO DAILY 09/17/22 09/17/22 tablet (One Daily Multivitamin with Iron) pantoprazole 40 mg tablet,delayed 40 mg PO DAILY 09/17/22 09/17/22 release vit C 250 mg-vit E 90 mg-zinc 40 1 cap PO DAILY 09/17/22 09/17/22 mg-copper 1 [id number] capsule (PreserVision AREDS-2) zolpidem 10 mg tablet 10 mg PO BEDTIME PRN Insomnia 09/17/22 09/17/22 Previous Rx's Medication Instructions Recorded nirmatrelvir 300 mg (150 mg See Rx Instructions PO .COMPLEX 02/25/25 x2)-ritonavir 100 mg tablet,dose #30 ea pack (Paxlovid) Allergies Allergy/AdvReac Type Severity Reaction Status Date / Time No Known Drug Allergies Allergy Verified 09/17/22 12:21 Patient History Social History Smoking Status: Former smoker Smoking Status: Former smoker alcohol intake frequency: 0-2 drinks per day Alcohol type: beer Exam Narrative Exam Narrative: GENERAL: Well-developed patient, in mild distress. HEAD: Atraumatic. Normocephalic. EYES: Pupils equal round and reactive. Extraocular motions intact. No scleral icterus. No injection or drainage. ENT: Nose without bleeding, purulent drainage. Throat without erythema, tonsillar hypertrophy or exudate. Airway patent. NECK: Trachea midline. Non tender CARDIOVASCULAR: Regular rate and rhythm without murmurs, gallops, or rubs. RESPIRATORY: Clear to auscultation. Breath sounds equal bilaterally. No wheezes, rales, or rhonchi. GASTROINTESTINAL: Abdomen soft, non-tender, nondistended. EXTREMITIES: No edema or joint tenderness. BACK: Nontender without deformity or crepitance. No flank tenderness. NEURO: AOx3. Motor functions grossly nonfocal SKIN: No rash or erythema of visible areas Initial Vital Signs Initial Vital Signs: Vital Signs Temperature 101.7 F H 02/25/25 18:13 Pulse Rate 94 H 02/25/25 18:13 Respiratory Rate 18 02/25/25 18:13 Blood Pressure 157/102 H 02/25/25 18:13 Pulse Oximetry 98 02/25/25 18:13 Oxygen Delivery Method Room Air 02/25/25 18:13 Course Orders Ordered: ED Orders 02/25/25 18:30 XR chest 1V Stat EKG-12 Lead Stat 02/25/25 18:40 Urinalysis and Microscopic Stat 02/25/25 18:41 Blood Culture Stat Complete Blood Count AUTO DIFF Stat Comprehensive Metabolic Panel Stat Lactate (Lactic Acid) Stat Lipase Stat PTT Partial Thromboplastin Dickson Stat Procalcitonin Stat Prothrombin Time INR Stat 02/25/25 19:05 Covid-19 + FLU A/B + RSV - PCR Stat Discontinued Medications Sodium Chloride (Normal Saline 0.9%) 1,000 mls @ 1,000 mls/hr IV BOLUS ONE Stop: 02/25/25 19:29 Last Infusion: 02/25/25 19:57 Dose: Infused Documented By: Admin: 02/25/25 19:02 Dose: 1,000 mls/hr Documented By: GERHARD Ondansetron HCl (Ondansetron 4 Mg/2 Ml Inj) 4 mg IV NOW PRN PRN Reason: Nausea And Vomiting Ondansetron HCl (Ondansetron 4 Mg Odt) 4 mg PO NOW PRN PRN Reason: Nausea And Vomiting Vital Signs Vital signs: Vital Signs - 8 hr 02/25/25 18:13 02/25/25 19:08 02/25/25 19:10 Temperature 101.7 F H Pulse Rate 94 H 85 Respiratory Rate 18 Blood Pressure 157/102 H 165/82 H Pulse Oximetry 98 97 Oxygen Delivery Method Room Air 02/25/25 19:10 02/25/25 19:30 02/25/25 19:30 Temperature Pulse Rate 80 78 Respiratory Rate 19 16 Blood Pressure 157/81 H Pulse Oximetry 97 96 Oxygen Delivery Method 02/25/25 20:30 02/25/25 20:58 02/25/25 20:58 Temperature Pulse Rate 86 85 Respiratory Rate 19 Blood Pressure 159/79 H Pulse Oximetry 96 96 Oxygen Delivery Method Room Air 02/25/25 21:00 02/25/25 21:00 Temperature Pulse Rate 84 Respiratory Rate 19 Blood Pressure 146/80 H Pulse Oximetry 95 Oxygen Delivery Method Room Air Medical Decision Making Lab Data Lab results narrative: White blood cell count 3100, hemoglobin 12.2, platelets adequate. Glucose 117. Sodium 135, potassium 4.0, serum CO2 26, normal renal function. Mild transaminitis noted, normal alkaline phosphatase and T bili. Urinalysis negative. Procalcitonin negative. COVID positive, influenza negative, RSV negative. 02/25/25 18:41 02/25/25 18:41 Labs: Lab Results 02/25/25 02/25/25 02/25/25 Range/Units 18:40 18:41 19:05 WBC 3.1 L (4.5-11.0) X10^3/uL RBC 3.77 L (4.5-5.9) X10^6/uL Hgb 12.2 L (13.5-17.5) g/dL Hct 35.5 L (41-53) % MCV 94.1 (80-100) fL MCH 32.4 (26-34) PG MCHC 34.5 (30-36) % RDW 12.4 (11.6-14.8) % Plt Count 188 (150-400) X10^3/uL Neut % (Auto) 59.3 (50-75) % Lymph % (Auto) 17.6 L (25-40) % [place] % (Auto) 20.9 H (3-14) % Eos % (Auto) 1.2 L (2-4) % Baso % (Auto) 1.0 (0-2) % Neut # (Auto) 1800 (2932-4567) /uL Lymph # (Auto) 500 L (7315-3229) /uL [place] # (Auto) 600 (0-900) /uL Eos # (Auto) 0 (0-450) /uL Baso # (Auto) 0 (0-100) /uL PT 15.4 H (9.4-12.5) SECONDS INR 1.4 H (0.9-1.3) APTT 40 H (25.1-36.5) SECONDS Sodium 135 L (137-145) mmol/L Potassium 4.0 (3.4-5.1) mmol/L Chloride 103 (98-107) mmol/L Carbon Dioxide 26 (22-32) mmol/L BUN 13 (9-20) mg/dL Creatinine 0.79 (0.66-1.25) mg/dL Estimated GFR > 60 (>60) mL/min BUN/Creatinine Ratio 16.5 (6-22) Glucose 117 H (70-99) mg/dL Lactate 1.2 (0.7-2.1) mmol/L Calcium 8.4 (8.4-10.2) mg/dL Total Bilirubin 1.1 (0.2-1.3) mg/dL AST 112 H (17-59) IU/L ALT 50 H (<50) IU/L Alkaline Phosphatase 118 (38-126) U/L Total Protein 6.0 L (6.3-8.2) g/dL Albumin 3.5 (3.5-5.0) g/dL Globulin 2.5 (1.7-4.1) g/dL Albumin/Globulin Ratio 1.4 (1.0-2.8) Lipase 80 (23-300) U/L Procalcitonin 0.138 (<0.5) ng/mL Urine Color Yellow Urine Appearance Clear Urine pH 5.5 (4.5-8.0) Ur Specific [place] 1.025 (1.000-1.035) Urine Protein Negative (Negative) Urine Glucose (UA) Negative (Negative) g/dL Urine Ketones Negative (NEGATIVE) Urine Occult Blood Negative (Negative) Urine Nitrate Negative (Negative) Urine Bilirubin Negative (NEGATIVE) Urine Urobilinogen 0.2 (0.2) E.U./dL Ur Leukocyte Esterase Negative (NEGATIVE) Urine RBC None seen (0-5/HPF) Urine WBC 0-1/hpf (0-5/HPF) Ur Squamous Epith Cells 0-1 /hpf (0-5/HPF) Calcium Oxalate Crystal Moderate H Urine Bacteria Occasional (0-1) (None) Ur Culture Indicated? Cult not indicated Vol Urine Centrifuged 10ml (spun) SARS-CoV-2 (PCR) Positive H (Negative) Influenza A (RT-PCR) Flu a negative (NEGATIVE) Influenza B (RT-PCR) Flu b negative (NEGATIVE) RSV (PCR) Negative (Negative) Urine Dip Bedside Urine Glucose Negative Bedside Urine Bilirubin - Negative Bedside Urine Ketone - Negative Urine Specific [place] 1.025 Bedside Urine Occult Blood - Negative Bedside Urine pH 6.0 Bedside Urine Protein - Negative Bedside Urine Urobilinogen - Negative Bedside Urine Nitrite - Negative Bedside Urine Leukocytes - Negative Esterase Point of care testing: Urine Dip Bedside Urine Glucose Negative Bedside Urine Bilirubin - Negative Bedside Urine Ketone - Negative Urine Specific [place] 1.025 Bedside Urine Occult Blood - Negative Bedside Urine pH 6.0 Bedside Urine Protein - Negative Bedside Urine Urobilinogen - Negative Bedside Urine Nitrite - Negative Bedside Urine Leukocytes - Negative Esterase Imaging Data Chest x-ray: Radiologist's Impression: [address] [address] XRay Report Signed Patient: Clarence Flowers MR#: [id number] : 1955 Acct:[id number] Age/Sex: 69 / M Date of Service: 02/25/25 Loc: ED Accession Number: [id number] Procedure: XR chest 1V Ordering Provider: Zac Chicas MD PROCEDURE: XR CHEST 1V INDICATIONS: suspected sepsis TECHNIQUE: One view of the chest was acquired. COMPARISON: [facility], , XR CHEST 1V, 09/17/2022, 12:22. FINDINGS: Surgical changes and devices: None. Lungs and pleura: No definite focal infiltrate. No pleural effusions or pneumothorax. Mediastinum: Tortuous thoracic aorta. Heart size is enlarged. Bones and chest wall: No suspicious bony lesions. Overlying soft tissues appear unremarkable. IMPRESSION: Cardiomegaly and mildly tortuous thoracic aorta. No focal infiltrate, pleural effusion or pneumothorax. Dictated by: Ascencion Finch M.D. on 02/25/2025 at 19:56 Approved by: Ascencion Finch M.D. on 02/25/2025 at 19:56 ECG Data Attestation: I personally reviewed and interpreted this ECG as follows: Interpretation: Normal sinus rhythm with rate of 82. No obvious ST segment elevation or depression changes. [place] 206, QRS 92, QTC 422. MDM Narrative Medical decision making narrative: 69-year-old with metastatic prostate cancer, hormonal treatment current, recent E coli urine infection status post completed course of antibiotics, new cough since yesterday, fever, no oxygen requirement. No respiratory distress. Chest clear to exam. Urinalysis clear today. Chest x-ray negative. COVID positive, influenza negative. He would like antiviral treatment with Paxlovid, we will send to his pharmacy. Encouraged to take antivirals as soon as possible for maximal benefit, and for full course if tolerated. Return precautions. Discharged home with . Discharge Plan Departure Patient Disposition: Home Clinical Impression: COVID-19 Activity Restrictions/Additional Instructions: Recent treatment with antibiotics for E coli urine infection, now with new cough and fever. Urinalysis tonight looked negative. Chest x-ray without obvious infiltrates per Radiology interpretation report. Lung seemed to be clear, no oxygen requirement, no respiratory distress. COVID swab was positive, influenza negative. You have had primary anti COVID vaccination and multiple including recent booster vaccinations. You requested to have antiviral Paxlovid course when offered, we will send prescription to your pharmacy, take the medicines as directed for full 5 day course of tolerated. Take as soon as possible for maximal benefits. Recheck if any change worsening symptoms or if not improved in the next couple of days. Consider use of [id number] pulse oximeter to watch your oxygenation counts, recheck if less than 90%. Return if increasing shortness of breath or chest pain or any concerns. Consider avoiding other people for the next 5 days self quarantine possible, wearing a mask to decrease spread of virus to others. Take Tylenol as needed for fever control. Consider recheck with your regular doctor if not improving in the next couple of days. Drink plenty of oral fluids. Return earlier to this/nearest emergency department for any change worsening symptoms or any concerns prior. Prescriptions: New Paxlovid 300 mg (150 mg x 2)-100 mg tablets,dose pack See Rx Instructions .ROUTE .COMPLEX Qty: 30 0RF Rx Instructions: take TWO 150 mg tablets of nirmatrelvir with ONE 100 mg tablet of ritonavir twice daily for 5 days No Action atorvastatin 40 mg tablet 40 mg PO DAILY meloxicam 15 mg Tablet 15 mg PO DAILY PRN (Reason: Pain (Scale Score 4-6)) clopidogrel 75 mg tablet 75 mg PO DAILY Patient Comments: take 1 tablet by mouth once daily pantoprazole 40 mg tablet,delayed release (DR/EC) 40 mg PO DAILY Adult Low Dose Aspirin 81 mg Tablet 81 mg PO DAILY metoprolol succinate 25 mg tablet extended release 24 hr 25 mg PO DAILY zolpidem 10 mg Tablet 10 mg PO BEDTIME PRN (Reason: Insomnia) calcium citrate 250 mg calcium Tablet 250 mg PO QID Iron Plus Vitamin C 65 mg iron- 125 mg Tablet 1 tab PO DAILY PreserVision AREDS-2 250-90-40-1 mg Capsule 1 cap PO DAILY One Daily Multivitamin-Iron 18 mg iron Tablet 1 tab PO DAILY Referrals: Juan Cummins MD [Primary Care Provider] - Stand Alone Forms: Patient Portal/API/Survey
== END 2025-02-25 21:20 | disposition home or self-care (01) ==
PROVIDERS: Emergency Provider Emergency Medicine; Family Provider Family Medicine; PCP Family Medicine
DX: U07.1 COVID-19 (principal); Z87.891 Personal history of nicotine dependence
CPT/HCPCS: 0241U; 36415; 71045; 80053; 81001; 81003; 83605; 83690; 84145; 85025; 85610; 85730; 87040; 93005; 93010; 96360; 99284